=== PATIENT | female | born 1980 | race Caucasian/White ===

== ENCOUNTER 2017-07-17 09:43 | Inpatient (IN) | payer BC, SELFPAY | END 2017-07-20 09:50 | disposition home or self-care (01) | DRG 194 | PROVIDERS: Admitting Provider Internal Medicine Adolescent Medicine; Emergency Provider Emergency Medicine; Family Provider Nurse Practitioner Family; Visit Provider Internal Medicine Adolescent Medicine | DX: J18.9 Pneumonia, unspecified organism (principal); J45.41 Moderate persistent asthma with (acute) exacerbation; E11.9 Type 2 diabetes mellitus without complications; E03.9 Hypothyroidism, unspecified | CPT/HCPCS: 36415; 71010; 71275; 80048; 80053; 82150; 82550; 82553; 82803; 82962; 83036; 83605; 83690; 83880; 84436; 84443; 84479; 84484; 85025; 85378; 86000; 86580; 86638; 87040; 87205; 87486; 87581; 87633; 87798; 93306; 94640; 94760; 96365; 96367; 96375; 99285; J1956; Q9967 ==

== ENCOUNTER → 2017-08-08 13:44 | Outpatient (CLI) | payer BC, SELFPAY | PROVIDERS: Family Provider Nurse Practitioner Family; PCP Internal Medicine Adolescent Medicine; Visit Provider Internal Medicine Adolescent Medicine | DX: R06.2 Wheezing (principal) | CPT/HCPCS: 94060; 94640; 94726; 94729 ==

== ENCOUNTER → 2017-08-15 12:57 | Outpatient (CLI) | payer BC, SELFPAY ==
--- NOTE | 2017-08-15 13:14 | XR_ITS ---
XR chest 2V HISTORY: ITS.REASON: PNEUMONIA ORDERING PHYSICIAN: Bryon Chandra MD PATIENT AGE: 37 years COMPARISON: 07/17/2017 FINDINGS: The cardiomediastinal silhouette and pulmonary vascularity are within normal limits. The lungs are clear without infiltrates, suspicious nodules, or pleural effusions. No acute bony abnormalities. There is minimal upper thoracic curvature convex left IMPRESSION: Negative chest, no acute finding
[2017-08-15 13:30] LABS: Basophils # 0.1 K/mm3 (0-0.2); Basophils % 0.7 % (0.1-2.0); Eosinophils # 0.4 K/mm3 (0.0-0.4); Hematocrit 41.7 % (37.0-47.0); Hemoglobin 13.5 g/dL (12.2-16.2); Lymphocytes # 2.5 K/mm3 (0.7-4.5); Lymphocytes % 28.3 K/mm3 (10-50); Mean Corpuscular HGB Conc 32.4 g/dL (31.8-35.4); Mean Corpuscular Hemoglobin 30.2 pg (27.0-31.2); Mean Corpuscular Volume 93.3 fl (81-99); Mean Platelet Volume 7.3 fl (7.4-10.4); Monocytes # 0.6 K/mm3 (0.1-1.0); Monocytes % 6.8 % (1.7-9.3); Neutrophils # 5.3 K/mm3 (1.8-7.8); Neutrophils % 60.1 % (37.0-80.0); Platelet Count 365 K/mm3 (142-424); Red Blood Count 4.47 M/mm3 (4.20-5.40); Red Cell Distribution Width 12.7 % (11.5-17.5); White Blood Count 8.7 K/mm3 (4.8-10.8)
[2017-08-15 13:43] LABS: Hemoglobin A1C 6.2 % (0.0-7.0)
[2017-08-15 16:32] LABS: Alanine Aminotransferase 28 U/L (12-78); Albumin Level 4.3 gm/dL (3.4-5.0); Albumin/Globulin Ratio 1.5 (1.1-1.8); Alkaline Phosphatase 39 U/L (46-116); Anion Gap 15.3 mEq/L (5-15); Aspartate Amino Transferase 13 U/L (15-37); Bilirubin,Total 0.5 mg/dL (0.2-1.0); Blood Urea Nitrogen 12 mg/dL (7-18); Calcium 9.4 mg/dL (8.5-10.1); Carbon Dioxide 26 mmol/L (21.0-32.0); Chloride 104 mmol/L (98-107); Chol/HDL Ratio 2.6 (1-3.5); Cholesterol 211 mg/dL (140-200); Estimated Glomerular Filt Rate 62 ml/min (>60); GFR (African American) 75 ML/MIN (>60); Globulin 2.9 gm/dl (1.3-3.2); Glucose 96 mg/dL (74-106); HDL Cholesterol 82 mg/dL (29-89); LDL Cholesterol 105 mg/dL (0-130); Potassium 4.3 mmoL/L (3.5-5.1); Sodium 141 mmol/L (136-145); Thyroid Stimulating Hormone 2.23 uIU/ml (0.358-3.740); Total Protein,Serum 7.2 gm/dL (6.4-8.2); Triglycerides 118 mg/dL (30-200); VLDL Cholesterol 24 mg/dL (0-40)
== END ==
PROVIDERS: PCP Internal Medicine Adolescent Medicine; Visit Provider Internal Medicine Adolescent Medicine
DX: J18.1 Lobar pneumonia, unspecified organism (principal); E11.9 Type 2 diabetes mellitus without complications; E03.9 Hypothyroidism, unspecified
CPT/HCPCS: 36415; 71046; 80053; 80061; 83036; 84443; 85025

== ENCOUNTER 2019-08-10 11:21 | Observation (INO) ==
[2019-08-10 13:33] LABS: Albumin Level 3.9 gm/dL (3.4-5.0); Albumin/Globulin Ratio 1.1 (1.1-1.8); Anion Gap 13.7 mEq/L (5-15); Bilirubin,Total 0.6 mg/dL (0.2-1.0); Calcium 8.8 mg/dL (8.5-10.1); Globulin 3.4 gm/dl (1.3-3.2); Total Protein,Serum 7.3 gm/dL (6.4-8.2)
[2019-08-10 13:34] LABS: Basophils # 0.2 K/mm3 (0-0.2); Basophils % 0.9 % (0.1-2.0); Eosinophils # 2.8 K/mm3 (0.0-0.4); Eosinophils % 15.6 % (0.1-12.0); Hematocrit 44.9 % (37.0-47.0); Hemoglobin 14.9 g/dL (12.2-16.2); Lymphocytes # 2.2 K/mm3 (0.7-4.5); Lymphocytes % 12.3 % (10-50); Mean Corpuscular HGB Conc 33.2 g/dL (31.8-35.4); Mean Platelet Volume 7.6 fl (7.4-10.4); Monocytes # 0.9 K/mm3 (0.1-1.0); Monocytes % 5.1 % (1.7-9.3); Neutrophils % 66.1 % (37.0-80.0); Platelet Count 445 K/mm3 (142-424); Red Blood Count 4.83 M/mm3 (4.20-5.40); Red Cell Distribution Width 12.9 % (11.5-17.5); White Blood Count 18.1 K/mm3 (4.8-10.8)
--- NOTE | 2019-08-10 14:19 | History & Physical Report ---
*Admission Date: 08/10/19 *Chief complaint: SOA, wheeze *History of present illness: Asthma exacerbation- patient was seen August 03 for follow up of pneumonia and was started on Doxy and PO steroids. She finished steroids Friday and the Doxy yesterday and reports she had been feeling better until Friday when she began having more difficulty breathing and had to start using her nebulized Albuterol every 3 hours in addition to her regular inhalers. Endorses more wheezing and shortness of breath. Denies fever, productive cough or nasal congestion. [facility] History I have reviewed the patient's past medical history: Yes Medical History: Reports:: Diabetes Mellitus Type 2 Denies:: Cancer, Diabetes Mellitus Type 1, MRSA *Have you ever received a pneumonia vaccine?: No *Have you received a flu vaccine this season?: Yes Other Medical History: Reports: Hypothyroidism Other Surgeries: Yes: Cholecystectomy, , Dilation and Curettage (x2) Amputation: No Fractures: No - *Social History Educational Level: Attended College Smoking Status: Never smoker Alcohol Intake: never *Occupational Status:: other Housing: house Household Members: spouse *Travel in the last 8 weeks: None Family Hx:: No significant family history Review of Systems - Review of Systems Review of systems:: pertinent systems reviewed and negative unless documented below - Constitutional Reports fatigue, Reports fever(s), Reports malaise, Denies anorexia, Denies excessive sweating - Eyes Denies blind spots - ENT Denies abnormal hearing - *Cardiovascular Reports shortness of breath, Reports shortness of breath with activity, Denies chest pain, Denies generalized swelling - *Respiratory Reports chest congestion, Reports cough, Reports shortness of breath, Reports shortness of breath with activity, Denies excessive phlegm production - *Gastrointestinal Denies abdominal pain - *Genitourinary Denies abnormal periods - *Musculoskeletal Denies abnormal walking Meds Home Medications Medication Instructions Recorded Confirmed Type Levothyroxine Sodium [Synthroid 125 mcg PO DAILY 05/01/18 08/10/19 History 125mcg (0.125mg) tablet] Metformin HCl 500 mg PO DAILY 05/01/18 08/10/19 History Albuterol Sulfate [Albuterol HFA 1 puff INHALATION Q2HP PRN 05/12/18 08/10/19 History Inhaler] Doxycycline Hyclate [Doxycycline 100 mg PO BID 08/10/19 08/10/19 History 100mg Capsule] Fluticasone/Vilanterol [Breo 1 inh IH DAILY 08/10/19 08/10/19 History Ellipta 200-25 Mcg INH] Ipratropium/Albuterol Sulfate 3 ml IH QID 08/10/19 08/10/19 History [Duoneb 3mL neb] Allergies Allergy/AdvReac Type Severity Reaction Status Date / Time cefdinir [CEFDINIR] Allergy Intermediate I-HIVES Verified 05/12/18 05:07 Sulfa (Sulfonamide Allergy Intermediate I-RASH Verified 05/12/18 05:07 Antibiotics) [SULFA (SULFONAMIDE ANTIBIOTICS)] Exam Vital signs and Labs for Last 24 Hours: Temp Pulse Resp BP Pulse Ox 99.2 F 113 H 18 132/90 96 08/10/19 12:33 08/10/19 12:33 08/10/19 12:33 08/10/19 12:33 08/10/19 12:33 Laboratory Results - last 24 hr 08/10/19 13:00: WBC 18.1 H, RBC 4.83, Hgb 14.9, Hct 44.9, MCV 93.0, MCH 30.9, MCHC 33.2, RDW 12.9, Plt Count 445 H, MPV 7.6, Neut % (Auto) 66.1, Lymph % (Auto) 12.3, [place] % (Auto) 5.1, Eos % (Auto) 15.6 H, Baso % (Auto) 0.9, Neut # (Auto) 12.0 H, Lymph # (Auto) 2.2, [place] # (Auto) 0.9, Eos # (Auto) 2.8 H, Baso # (Auto) 0.2 08/10/19 13:00: Sodium 138, Potassium 3.7, Chloride 103, Carbon Dioxide 25, Anion Gap 13.7, BUN 15, Creatinine 0.94, Estimated Creat Clear 114, Estimated GFR 66, Est GFR ( Amer) 80, Glucose 88, Calcium 8.8, Magnesium 2.0, Total Bilirubin 0.6, AST 14 L, ALT 23, Alkaline Phosphatase 56, Total Protein 7.3, Albumin 3.9, Globulin 3.4 H, Albumin/Globulin Ratio 1.1 I & O for Last 24 hours: Intake & Output 08/08/19 08/09/19 08/10/19 08/11/19 11:59 11:59 11:59 11:59 Weight 198 lb 2 oz - Constitutional mild distress, average body habitus - *Routine HEENT Exam Head: Present: normocephalic Eye: Present: EOMI, PERRL ENT: Present: mucous membranes moist - *Routine Neck Exam Present: supple. Absent: lymphadenopathy - *Routine Respiratory Exam Present: accessory muscle use, prolonged expiratory phase, wheezes, diminished air movement - *Routine Cardiovascular Exam Present: RRR - *Routine Abdominal Exam Present: soft, normoactive bowel sounds. Absent: tenderness - *Routine Extremities Exam Absent: cyanosis, clubbing, edema - *Routine Skin Exam Present: warm. Absent: rash - *Routine Neurological Exam Present: alert, oriented X3 Assessment and Plan (1) Asthma with exacerbation Current visit: No Status: Acute Category: Medical Code(s): J45.901 - Unspecified asthma with (acute) exacerbation Admit to [facility] - failed two oupt abx and steroid rounds... needs IV steroids, IVF and enhanced pulmonary toilet.
--- NOTE | 2019-08-10 14:52 | Pharmacy Consult Notes ---
[facility] Pharmacy VTE Monitoring - Patient Demographics Admission date: 08/10/19 Report Date: 08/10/19 Time: 14:51 Allergies/Adverse Reactions: Patient Allergies cefdinir [CEFDINIR] Allergy (Intermediate, Verified 05/12/18 05:07) I-HIVES Sulfa (Sulfonamide Antibiotics) [SULFA (SULFONAMIDE ANTIBIOTICS)] Allergy (Intermediate, Verified 05/12/18 05:07) I-RASH Height: 1.78 m Weight: 89.868 kg - VTE Risk Labs: VTE Related Lab Results Hgb 14.9 g/dL (12.2-16.2) 08/10/19 13:00 Hct 44.9 % (37.0-47.0) 08/10/19 13:00 Plt Count 445 K/mm3 (142-424) H 08/10/19 13:00 BUN 15 mg/dL (7-18) 08/10/19 13:00 Creatinine 0.94 mg/dL (0.55-1.02) 08/10/19 13:00 Estimated Creat Clear 114 mL/min (50-200) 08/10/19 13:00 Was VTE Risk Assessment Performed: Yes VTE Score: 2 VTE Risk Level: Low Risk Clinical Trial Participant: No - Prophylaxis VTE Prophylaxis Ordered?: Yes Types of VTE Prophylaxis: TEDS Knee High
[2019-08-10 15:19] LABS: Eosinophils % 10 % (0-3); Lymphocytes % 13 % (10-50); Monocytes % 2 % (2-9); Neutrophils % 75 % (42-76); RBC Morphology Normal; Total Cells Counted 100
--- NOTE | 2019-08-10 15:37 | Consult Report ---
*Admission Date: 08/10/19 *Reason for consult:: asthma *History of present illness: Patient states she has had asthma all her life. However she has poor understanding of her illness. She has never smoked. She states she was admitted August 03 for follow up of pneumonia and was started on Doxy and PO steroids. She finished steroids Friday and the Doxy yesterday and reports she had been feeling better until Friday when she began having more difficulty breathing and had to start using her nebulized Today I saw the patient she is perfectly comfortable. She is not wheezing she is back to baseline. She is receiving a very good regimen for her asthma [facility] History I have reviewed the patient's past medical history: Yes Medical History: Reports:: Diabetes Mellitus Type 2 Denies:: Cancer, Diabetes Mellitus Type 1, MRSA *Have you ever received a pneumonia vaccine?: No *Have you received a flu vaccine this season?: Yes Other Medical History: Reports: Hypothyroidism Other Surgeries: Yes: Cholecystectomy, , Dilation and Curettage (x2) Amputation: No Fractures: No - *Social History Educational Level: Attended College Smoking Status: Never smoker Alcohol Intake: never *Occupational Status:: other Housing: house Household Members: spouse *Travel in the last 8 weeks: None Family Hx:: No significant family history Review of Systems - Review of Systems Review of systems:: pertinent systems reviewed and negative unless documented below - Constitutional Denies anorexia - Eyes Denies blind spots - ENT Denies abnormal hearing - *Cardiovascular Denies chest pain - *Respiratory Reports shortness of breath, Reports wheezing, Denies change in phlegm color - *Gastrointestinal Denies abdominal pain - *Neurologic Denies abnormal walking, Denies abnormal hearing Meds Home Medications Medication Instructions Recorded Confirmed Type Metformin HCl 500 mg PO DAILY 05/01/18 08/10/19 History Albuterol Sulfate [Albuterol HFA 1 puff INHALATION Q2HP PRN 05/12/18 08/10/19 History Inhaler] Doxycycline Hyclate [Doxycycline 100 mg PO BID 08/10/19 08/10/19 History 100mg Capsule] Fluticasone/Vilanterol [Breo 1 inh IH DAILY 08/10/19 08/10/19 History Ellipta 200-25 Mcg INH] Ipratropium/Albuterol Sulfate 3 ml IH QID 08/10/19 08/10/19 History [Duoneb 3mL neb] Levothyroxine Sodium 200 mcg PO DAILY 08/10/19 08/10/19 History [Levothyroxine 200mcg (0.2mg) Tab] Allergies Allergy/AdvReac Type Severity Reaction Status Date / Time cefdinir [CEFDINIR] Allergy Intermediate I-HIVES Verified 05/12/18 05:07 Sulfa (Sulfonamide Allergy Intermediate I-RASH Verified 05/12/18 05:07 Antibiotics) [SULFA (SULFONAMIDE ANTIBIOTICS)] Exam Vital signs and Labs for Last 24 Hours: Temp Pulse Resp BP Pulse Ox 99.2 F 105 H 18 132/90 97 08/10/19 12:33 08/10/19 14:19 08/10/19 12:33 08/10/19 12:33 08/10/19 14:19 Laboratory Results - last 24 hr 08/10/19 13:00: WBC 18.1 H, RBC 4.83, Hgb 14.9, Hct 44.9, MCV 93.0, MCH 30.9, MCHC 33.2, RDW 12.9, Plt Count 445 H, MPV 7.6, Neut % (Auto) 66.1, Lymph % (Auto) 12.3, [place] % (Auto) 5.1, Eos % (Auto) 15.6 H, Baso % (Auto) 0.9, Neut # (Auto) 12.0 H, Lymph # (Auto) 2.2, [place] # (Auto) 0.9, Eos # (Auto) 2.8 H, Baso # (Auto) 0.2, Total Counted 100, Neutrophils % (Manual) 75, Lymphocytes % (Manual) 13, Monocytes % (Manual) 2, Eosinophils % (Manual) 10 H, Platelet Estimate Normal, RBC Morphology Normal 08/10/19 13:00: Sodium 138, Potassium 3.7, Chloride 103, Carbon Dioxide 25, Anion Gap 13.7, BUN 15, Creatinine 0.94, Estimated Creat Clear 114, Estimated GFR 66, Est GFR ( Amer) 80, Glucose 88, Calcium 8.8, Magnesium 2.0, Total Bilirubin 0.6, AST 14 L, ALT 23, Alkaline Phosphatase 56, Total Protein 7.3, Albumin 3.9, Globulin 3.4 H, Albumin/Globulin Ratio 1.1 I & O for Last 24 hours: Intake & Output 08/07/19 08/08/19 08/09/19 08/10/19 23:59 23:59 23:59 23:59 Weight 198 lb 2 oz - *Routine HEENT Exam Head: Present: normocephalic Eye: Present: EOMI, PERRL ENT: Present: mucous membranes moist - *Routine Neck Exam Present: supple. Absent: lymphadenopathy - *Routine Respiratory Exam Present: CTA bilaterally - *Routine Cardiovascular Exam Present: RRR - *Routine Abdominal Exam Present: soft, normoactive bowel sounds. Absent: tenderness - *Routine Extremities Exam Absent: cyanosis, clubbing, edema - *Routine Skin Exam Present: warm. Absent: rash - *Routine Neurological Exam Present: alert, oriented X3 - Detailed Eye Exam Eyelids: Left normal inspection Internal Medicine - CN: Reslt - Labs CBC & Chem 7: 08/10/19 13:00 08/10/19 13:00 Labs: Short CBC 08/10/19 Range/Units 13:00 WBC 18.1 H (4.8-10.8) K/mm3 Hgb 14.9 (12.2-16.2) g/dL Hct 44.9 (37.0-47.0) % Plt Count 445 H (142-424) K/mm3 BMP 08/10/19 13:00 Sodium 138 Potassium 3.7 Chloride 103 Carbon Dioxide 25 BUN 15 Creatinine 0.94 Glucose 88 Calcium 8.8 Liver Function 08/10/19 Range/Units 13:00 Total Bilirubin 0.6 (0.2-1.0) mg/dL AST 14 L (15-37) U/L ALT 23 (12-78) U/L Alkaline Phosphatase 56 (46-116) U/L Albumin 3.9 (3.4-5.0) gm/dL - ABG Interpretation Attestation ABG: I reviewed and interpreted this ABG. Assessment and Plan (1) Asthma with exacerbation Current visit: No Status: Acute Category: Medical Code(s): J45.901 - Unspecified asthma with (acute) exacerbation Patient is doing very well right now and is perfectly comfortable. She is at her baseline. There is no wheezing. However she describes more than a month of being short of breath and having several episodes of steroid use. She will need to be closely observed by her PCP after discharge. Because she is not having symptoms right now I am not able to observe her disease process. By her description I am a little concerned that she might have a vocal cord problem and that this comes and goes and persists. She should have outpatient PFTs and close observation. Thank you for the opportunity to see this patient in consultation
--- NOTE | 2019-08-10 20:56 | Electrocardiograph Report ---
APPROVED REPORT Exam: Resting ECG HR:90 bpm ECG Measurements Heart Rate 90 AXES MO 130 P 74 QRSd 96 QRS 84 QT 378 T38 QTc 462 <Conclusion> Normal sinus rhythm Normal ECG Electronically signed by : Bryon Chandra, 08/10/2019 20:56:11
--- NOTE | 2019-08-11 09:01 | Discharge Summary ---
General - General Admission date:: 08/10/19 Discharge date: 08/11/19 HPI HPI: Asthma exacerbation- patient was seen August 03 for follow up of pneumonia and was started on Doxy and PO steroids. She finished steroids Friday and the Doxy yesterday and reports she had been feeling better until Friday when she began having more difficulty breathing and had to start using her nebulized Albuterol every 3 hours in addition to her regular inhalers. Endorses more wheezing and shortness of breath. Denies fever, productive cough or nasal congestion. Hospital Course Hospital Course: Patient was admitted, placed on methylprednisolone and nebulized treatment as well as fluid and intravenous magnesium. She did very nicely and responded very nicely to this inpatient management. This morning she is improving. No longer tachypneic. Exam has improved extremely well. She will be discharged home on longer term steroids, nebulizer treatments and magnesium. Objective Vital signs: Temp Pulse Resp BP Pulse Ox 97.8 F 90 16 111/73 92 L 08/11/19 04:00 08/11/19 06:14 08/11/19 04:00 08/11/19 04:00 08/11/19 06:14 Narrative: Awake, alert, pleasant. No respiratory distress. Oropharynx clear, no JVD. Tachypnea resolved. Lung exam is much improved with less wheezing. No breath stacking, normal I/T ratio. No clubbing, no edema. Heart rate regular. Results Labs on day of discharge: Labs from last 24 hours 08/10/19 08/10/19 13:00 13:00 WBC 18.1 H RBC 4.83 Hgb 14.9 Hct 44.9 MCV 93.0 MCH 30.9 MCHC 33.2 RDW 12.9 Plt Count 445 H MPV 7.6 Neut % (Auto) 66.1 Lymph % (Auto) 12.3 [place] % (Auto) 5.1 Eos % (Auto) 15.6 H Baso % (Auto) 0.9 Neut # (Auto) 12.0 H Lymph # (Auto) 2.2 [place] # (Auto) 0.9 Eos # (Auto) 2.8 H Baso # (Auto) 0.2 Total Counted 100 Neutrophils % (Manual) 75 Lymphocytes % (Manual) 13 Monocytes % (Manual) 2 Eosinophils % (Manual) 10 H Platelet Estimate Normal RBC Morphology Normal Sodium 138 Potassium 3.7 Chloride 103 Carbon Dioxide 25 Anion Gap 13.7 BUN 15 Creatinine 0.94 Estimated Creat Clear 114 Estimated GFR 66 Est GFR ( Amer) 80 Glucose 88 Calcium 8.8 Magnesium 2.0 Total Bilirubin 0.6 AST 14 L ALT 23 Alkaline Phosphatase 56 Total Protein 7.3 Albumin 3.9 Globulin 3.4 H Albumin/Globulin Ratio 1.1 DS: Diagnosis - Discharge Diagnosis (1) Asthma with exacerbation Status: Acute Discharge Plan - Patient Discharge Instructions ACTIVITY: Continue current activity DIET: continue same diet Patient Instructions: Asthma -- Adult, DI for Asthma -- Adult - Follow up Plan Follow up with: Bryon Chandra MD [Primary Care Provider] - 08/17/19 Disposition: Home, [facility] Medications: Home Medications Medication Instructions Recorded Confirmed Type Metformin HCl 500 mg PO DAILY 05/01/18 08/10/19 History Albuterol Sulfate [Albuterol HFA 1 puff INHALATION Q2HP PRN 05/12/18 08/10/19 History Inhaler] Doxycycline Hyclate [Doxycycline 100 mg PO BID 08/10/19 08/10/19 History 100mg Capsule] Fluticasone/Vilanterol [Breo 1 inh IH DAILY 08/10/19 08/10/19 History Ellipta 200-25 Mcg INH] Ipratropium/Albuterol Sulfate 3 ml IH QID 08/10/19 08/10/19 History [Duoneb 3mL neb] Levothyroxine Sodium 200 mcg PO DAILY 08/10/19 08/10/19 History [Levothyroxine 200mcg (0.2mg) Tab] Magnesium Oxide 400 mg PO BID #60 tab 08/11/19 Rx predniSONE [Deltasone 20mg 20 mg PO BID 7 Days #14 tab 08/11/19 Rx tablet] Prescriptions/Medication Reconciliation: New Magnesium Oxide 400 mg PO BID #60 tab predniSONE [Deltasone 20mg tablet] 20 mg PO BID 7 Days #14 tab Continued Metformin HCl 500 mg PO DAILY Albuterol Sulfate [Albuterol HFA Inhaler] 1 puff INHALATION Q2HP PRN PRN Reason: shortness of air Fluticasone/Vilanterol [Breo Ellipta 200-25 Mcg INH] 1 inh IH DAILY Levothyroxine Sodium [Levothyroxine 200mcg (0.2mg) Tab] 200 mcg PO DAILY Ipratropium/Albuterol Sulfate [Duoneb 3mL neb] 3 ml IH QID Discontinued Doxycycline Hyclate [Doxycycline 100mg Capsule] 100 mg PO BID - Problem Reconciliation Problems Reviewed?: Yes
== END 2019-08-11 10:20 | disposition home or self-care (01) ==
LOC: 2ND
PROVIDERS: ADMIT Internal Medicine Adolescent Medicine; ATTEND Internal Medicine Adolescent Medicine
DX: Z88.1 Allergy status to other antibiotic agents; E11.9 Type 2 diabetes mellitus without complications; Z79.84 Long term (current) use of oral hypoglycemic drugs; E03.9 Hypothyroidism, unspecified; Z90.49 Acquired absence of other specified parts of digestive tract; Z79.899 Other long term (current) drug therapy; J45.901 Unspecified asthma with (acute) exacerbation; Z88.2 Allergy status to sulfonamides
CPT/HCPCS: 71020; 71046; 80053; 83735; 85007; 85025; 93005; 94640; 94761; G0378

== ENCOUNTER 2019-09-07 03:52 | Observation (INO) ==
[2019-09-07 04:17] LABS: ABG Base Excess -4.3 mmol/L (-2.4-2.3); ABG Oxygen Saturation 92 % (90-100); ABG PCO2 37.2 mmhg (35.0-45.0); ABG PH 7.37 mmol/L (7.35-7.45); ABG PO2 65.2 mmhg (80-100); ABG TCO2 22.2 mmhg (23-27)
[2019-09-07 04:18] LABS: Basophils # 0.1 K/mm3 (0-0.2); Basophils % 0.6 % (0.1-2.0); Eosinophils # 0.5 K/mm3 (0.0-0.4); Eosinophils % 3.8 % (0.1-12.0); Hematocrit 42.1 % (37.0-47.0); Hemoglobin 14.1 g/dL (12.2-16.2); Lymphocytes # 1.3 K/mm3 (0.7-4.5); Lymphocytes % 10.6 % (10-50); Mean Corpuscular HGB Conc 33.4 g/dL (31.8-35.4); Mean Corpuscular Volume 93.7 fl (81-99); Mean Platelet Volume 8.1 fl (7.4-10.4); Monocytes # 0.9 K/mm3 (0.1-1.0); Monocytes % 7.4 % (1.7-9.3); Neutrophils # 9.7 K/mm3 (1.8-7.8); Neutrophils % 77.7 % (37.0-80.0); Platelet Count 401 K/mm3 (142-424); Red Blood Count 4.49 M/mm3 (4.20-5.40); White Blood Count 12.5 K/mm3 (4.8-10.8)
[2019-09-07 04:18] LABS: Allen's Test ACCEPTABLE; Oxygen 21 %
[2019-09-07 04:30] LABS: Albumin/Globulin Ratio 1.2 (1.1-1.8); Anion Gap 14.1 mEq/L (5-15); Bilirubin,Total 0.3 mg/dL (0.2-1.0); Calcium 9.1 mg/dL (8.5-10.1); Globulin 3.3 gm/dl (1.3-3.2); Total Protein,Serum 7.3 gm/dL (6.4-8.2)
--- NOTE | 2019-09-07 04:45 | Emergency Department Note ---
ED Disposition Clinical Impression: Asthma with exacerbation Qualifiers: Asthma severity: severe Asthma persistence: unspecified Qualified Code(s): J45.901 - Unspecified asthma with (acute) exacerbation Disposition: Admitted as Observation Condition on Discharge: Serious Referrals: Bryon Chandra MD [Primary Care Provider] - - Critical Care Critical Care Time: No Attestation: On 09/07/19, the high probability of a clinically significant, sudden or life threatening deterioration of the following system(s) required my full and direct attention, intervention and personal management. The time I documented below is in addition to time spent performing reported procedures but includes the following listed in this critical care notation. Medical Decision Making - Medical Records Medical records reviewed: Yes: I reviewed the patient's medical records. - [place] Inquiry Pt receiving controlled substance: No Vital Signs: 09/07/19 03:53 Temperature 97.8 F Temperature Source Oral Pulse Rate [Left Radial] 131 H Respiratory Rate 22 Blood Pressure [Right Arm] 123/78 Blood Pressure Mean [Right Arm] 93 Blood Pressure Source [Right Arm] Automatic Cuff Blood Pressure Position [Right Arm] Sitting 02 Sat by Pulse Oximetry 97 Oxygen Delivery Method Room Air - Lab Data Lab results reviewed: Yes: I reviewed the patient's lab results. Lab Results 09/07/19 04:07: Specimen Source Right radial, O2 % 21, ABG pH 7.37, ABG pCO2 37.2, ABG pO2 65.2 L, ABG HCO3 21.0 L, ABG Total CO2 22.2 L, ABG O2 Saturation 92, ABG Base Excess -4.3 L, Darryl Test Acceptable 09/07/19 04:10: WBC 12.5 H, RBC 4.49, Hgb 14.1, Hct 42.1, MCV 93.7, MCH 31.3 H, MCHC 33.4, RDW 13.0, Plt Count 401, MPV 8.1, Neut % (Auto) 77.7, Lymph % (Auto) 10.6, [place] % (Auto) 7.4, Eos % (Auto) 3.8, Baso % (Auto) 0.6, Neut # (Auto) 9.7 H, Lymph # (Auto) 1.3, [place] # (Auto) 0.9, Eos # (Auto) 0.5 H, Baso # (Auto) 0.1 Result diagrams: 09/07/19 04:10 Orders (Tests/Meds): ED MEDICATIONS Generic Name Dose Route Start Last Admin Trade Name Freq PRN Reason Stop Dose Admin Sodium Chloride 1,000 mls @ 999 mls/hr 09/07/19 04:15 09/07/19 04:15 Sod Chlor 0.9% 1000ml Bag IV 09/07/19 05:15 999 mls/hr .Q1H1M QUITA Administration Discontinued Medications Generic Name Dose Route Start Last Admin Trade Name Freq PRN Reason Stop Dose Admin Levalbuterol HCl 1.25 mg 09/07/19 04:09 09/07/19 04:14 Xopenex 1.25mg/3ml Neb IH 09/07/19 04:10 1.25 mg ONCE ONE Administration Methylprednisolone Sodium Succinate 125 mg 09/07/19 04:08 09/07/19 04:14 Solu-Medrol 125mg/2ml Vial IV 09/07/19 04:09 125 mg ONCE ONE Administration ORDERS Category Date Time Status XR chest portable Stat Exams 09/07/19 04:08 Taken Comprehensive Metabolic Panel Stat Lab 09/07/19 04:10 Received Troponin I Q3H Lab 09/07/19 07:15 Ordered Troponin I Q3H Lab 09/07/19 10:15 Ordered Troponin I Stat Lab 09/07/19 04:10 Received - Radiology Data #1 Image(s): Chest Image Reviewed: Yes I reviewed the patient's radiology image Preliminary Findings: Abnormal (inc marking rt base ) - ECG Data Tracing #1 Arrhythmias present: sinus tach Ischemic changes: non-specific ST-T wave changes - Physician Consults Physician Consulted: steve Reason -: Admission Asthma HPI - General Chief Complaint: Shortness of Breath/Dyspnea Stated Complaint: Difficulty breathing Time Seen by Provider: 09/07/19 04:15 Mode of Arrival - ED Triage: Ambulatory ED Triage Source of Information: Patient, Medical Record ED Triage Limitations: No Limitations Description of Symptoms (Recalled from ER Triage Doc. by RN): pt had pneumonia a month ago and has asthma. pt began to get SOB yesterday that increasingly got worse over night. pt has been taking her DUO neb treatments about every 2hrs though the night with no relief - History of Present Illness HPI Narrative: hx of asthma and has used nebs and inhaler at [facility] with saray murillo MD complaint: "asthma attack", shortness of breath Onset (ago): hour(s) Severity: worse than usual Context: pet exposure Associated symptoms: dry cough Asthma History: adult onset Treatments Prior to Arrival: inhaled bronchodilator, inhaled steroid - Related Data Current Asthma Therapy: inhaled bronchodilator, inhaled steroid Home Medications Medication Instructions Recorded Confirmed Metformin HCl 500 mg PO DAILY 05/01/18 08/10/19 Ipratropium/Albuterol Sulfate 3 ml IH QID 08/10/19 08/10/19 [Duoneb 3mL neb] Levothyroxine Sodium 200 mcg PO DAILY 08/10/19 08/10/19 [Levothyroxine 200mcg (0.2mg) Tab] Allergies Allergy/AdvReac Type Severity Reaction Status Date / Time cefdinir [CEFDINIR] Allergy Intermediate I-HIVES Verified 05/12/18 05:07 Sulfa (Sulfonamide Allergy Intermediate I-RASH Verified 05/12/18 05:07 Antibiotics) [SULFA (SULFONAMIDE ANTIBIOTICS)] [facility] History - Hepatitis A Screen Drug use history?: No High risk sexual behaviors?: No History of sexually transmitted infection?: No Currently employed?: No Childcare worker?: No Do you have indoor plumbing?: Yes Do you have electricity?: Yes Attestation statement:: This patient has been screened for Hepatitis A risk factors. I have reviewed the patient's past medical history: Yes Medical History: Reports:: Diabetes Mellitus Type 2 Denies:: Cancer, Diabetes Mellitus Type 1, MRSA Other Medical History: Reports: Hypothyroidism Other Surgeries: Yes: Cholecystectomy, , Dilation and Curettage (x2) Amputation: No Fractures: No - Social History Smoking Status: Never smoker Alcohol Intake: never Occupational Status: employed Housing: house Household Members: spouse Family Hx:: No significant family history ROS Obtained: Yes All systems reviewed & no additional complaints - Constitutional Constitutional: Denies fever(s) - Eyes Eyes: Denies change in vision - ENT Ears, Nose, Mouth, and Throat: Denies sore throat - Cardiovascular Cardiovascular: Reports as per HPI, Denies chest pain, Reports dyspnea - Respiratory Respiratory: Yes as per HPI, Yes cough, Yes non-productive cough - Gastrointestinal Gastrointestingal: Denies: abdominal pain - Genitourinary Female Genitourinary: Denies hematuria - Musculoskeletal Musculoskeletal: Denies joint pain, Denies joint swelling - Integumentary/Breasts Skin/Breast: Denies rash - Neurologic Neurologic: Denies focal weakness, Denies seizure-like activity Physical Exam - General General appearance: alert, in no apparent distress - Head Head exam: normocephalic - Eye Eye exam: Present: PERRL, EOMI. Absent: scleral icterus - ENT ENT exam: Present: mucous membranes dry - Neck Neck exam: Present: trachea midline - Respiratory Respiratory exam: Present: wheezes. Absent: respiratory distress - Cardiovascular Cardiovascular exam: Present: regular rate. Absent: systolic murmur, rubs, gallop - Abdominal Exam Abdominal exam: Present: soft - Extremities Exam Extremities exam: Present: full ROM - Neurological Exam Neurological exam: Present: alert, CN II-XII intact - Psychiatric Psychiatric exam: Present: normal affect - Skin Skin exam: Absent: rash
--- NOTE | 2019-09-07 07:28 | Pharmacy Consult Notes ---
[facility] Pharmacy VTE Monitoring - Patient Demographics Admission date: 09/07/19 Report Date: 09/07/19 Time: 07:27 Allergies/Adverse Reactions: Patient Allergies cefdinir [CEFDINIR] Allergy (Intermediate, Verified 05/12/18 05:07) I-HIVES Sulfa (Sulfonamide Antibiotics) [SULFA (SULFONAMIDE ANTIBIOTICS)] Allergy (Intermediate, Verified 05/12/18 05:07) I-RASH Height: 1.78 m Weight: 90.889 kg Patient Problems: Current Active Problems Asthma with exacerbation (Acute) - VTE Risk Labs: VTE Related Lab Results Hgb 14.1 g/dL (12.2-16.2) 09/07/19 04:10 Hct 42.1 % (37.0-47.0) 09/07/19 04:10 Plt Count 401 K/mm3 (142-424) 09/07/19 04:10 BUN 11 mg/dL (7-18) 09/07/19 04:10 Creatinine 1.04 mg/dL (0.55-1.02) H 09/07/19 04:10 Estimated Creat Clear 104 mL/min (50-200) 09/07/19 04:10 - Prophylaxis VTE Prophylaxis Ordered?: Yes Types of VTE Prophylaxis: TEDS Knee High Location of Applied Device: Bilateral Lower Extremeties
--- NOTE | 2019-09-07 08:10 | History & Physical Report ---
*Admission Date: 09/07/19 *Chief complaint: Wheezing/shortness of air *History of present illness: 39-year-old white female very familiar to me with significant asthma who has significant exacerbations and has been hospitalized twice over the past year, has never been intubated or had to be on BiPAP. I saw her in the office last week and she was doing well. I actually changed her therapy from Breo inhaler to Trelegy inhaler to see if the inhaled LAMA would help her avoid p.o. steroids and she initially did well, but over the past 24 hours has become increasingly short of air, afflicted with wheezing, difficulty breathing and difficulty with significant expiration. Came to the emergency department, significant wheezing, tightness, minimal hypoxia noted and she was admitted to the hospital. [facility] History I have reviewed the patient's past medical history: Yes Medical History: Reports:: Diabetes Mellitus Type 2 Denies:: Cancer, Diabetes Mellitus Type 1, MRSA *Have you ever received a pneumonia vaccine?: No *Have you received a flu vaccine this season?: Yes Other Medical History: Reports: Hypothyroidism Other Surgeries: Yes: Cholecystectomy, , Dilation and Curettage (x2) Amputation: No Fractures: No - *Social History Educational Level: Attended College Smoking Status: Never smoker Alcohol Intake: never *Occupational Status:: employed Housing: house Household Members: spouse *Travel in the last 8 weeks: None Family Hx:: Cancer, Coronary Artery Disease, Diabetes, Hyperlipidemia, Hypertension, Stroke, Thyroid Disorder Review of Systems - Review of Systems Review of systems:: pertinent systems reviewed and negative unless documented below - Constitutional Denies anorexia - Eyes Denies blind spots, Denies blurry vision - ENT Denies abnormal hearing - *Cardiovascular Reports shortness of breath, Reports shortness of breath with activity, Denies chest pain, Denies chest pain at rest - *Respiratory Reports shortness of breath with activity, Denies change in phlegm color, Denies excessive phlegm production - *Gastrointestinal Denies abdominal pain - *Musculoskeletal Denies abnormal walking, Denies joint swelling - Integumentary/Breasts Denies acne - *Neurologic Denies localized weakness, Denies seizure-like activity Meds Home Medications Medication Instructions Recorded Confirmed Type Metformin HCl 500 mg PO DAILY 05/01/18 09/07/19 History Ipratropium/Albuterol Sulfate 3 ml IH QID 08/10/19 09/07/19 History [Duoneb 3mL neb] Levothyroxine Sodium 200 mcg PO DAILY 08/10/19 09/07/19 History [Levothyroxine 200mcg (0.2mg) Tab] Fluticasone/Umeclidin/Vilanter 1 puff INHALATION DAILY 09/07/19 09/07/19 History [Trelegy Ellipta 100-62.5-25] Allergies Allergy/AdvReac Type Severity Reaction Status Date / Time cefdinir [CEFDINIR] Allergy Intermediate I-HIVES Verified 05/12/18 05:07 Sulfa (Sulfonamide Allergy Intermediate I-RASH Verified 05/12/18 05:07 Antibiotics) [SULFA (SULFONAMIDE ANTIBIOTICS)] Exam Vital signs and Labs for Last 24 Hours: Temp Pulse Resp BP Pulse Ox 98.2 F 112 H 20 144/78 H 92 L 09/07/19 05:46 09/07/19 06:14 09/07/19 05:46 09/07/19 05:46 09/07/19 06:14 Laboratory Results - last 24 hr 09/07/19 04:07: Specimen Source Right radial, O2 % 21, ABG pH 7.37, ABG pCO2 37.2, ABG pO2 65.2 L, ABG HCO3 21.0 L, ABG Total CO2 22.2 L, ABG O2 Saturation 92, ABG Base Excess -4.3 L, Darryl Test Acceptable 09/07/19 04:10: Troponin I < 0.02 09/07/19 04:10: Sodium 142, Potassium 4.1, Chloride 105, Carbon Dioxide 27, Anion Gap 14.1, BUN 11, Creatinine 1.04 H, Estimated Creat Clear 104, Estimated GFR 59, Est GFR ( Amer) 71, Glucose 135 H, Calcium 9.1, Total Bilirubin 0.3, AST 13 L, ALT 21, Alkaline Phosphatase 50, Total Protein 7.3, Albumin 4.0, Globulin 3.3 H, Albumin/Globulin Ratio 1.2 09/07/19 04:10: WBC 12.5 H, RBC 4.49, Hgb 14.1, Hct 42.1, MCV 93.7, MCH 31.3 H, MCHC 33.4, RDW 13.0, Plt Count 401, MPV 8.1, Neut % (Auto) 77.7, Lymph % (Auto) 10.6, [place] % (Auto) 7.4, Eos % (Auto) 3.8, Baso % (Auto) 0.6, Neut # (Auto) 9.7 H, Lymph # (Auto) 1.3, [place] # (Auto) 0.9, Eos # (Auto) 0.5 H, Baso # (Auto) 0.1 09/07/19 04:10: Magnesium 1.7 I & O for Last 24 hours: Intake & Output 09/04/19 09/05/19 09/06/19 09/07/19 11:59 11:59 11:59 11:59 Intake Total 1250 / 1250 Balance 1250 / 1250 Weight 200 lb 6 oz Narrative: Patient is pleasant, appears moderately ill. No use of accessory muscles or retractions. ENT exam clear, oropharynx clear, no JVD. Respiratory effort is intact, lungs have significant wheezing, some tightness on end expiration. No clubbing, no cyanosis, no edema. Abdomen soft and nontender. Neurologically intact. Assessment and Plan (1) Asthma with exacerbation Current visit: Yes Status: Acute Qualifiers: Asthma severity: severe Asthma persistence: unspecified Qualified Code(s): J45.901 - Unspecified asthma with (acute) exacerbation Category: Medical Code(s): J45.901 - Unspecified asthma with (acute) exacerbation Agree with admission. Add IV magnesium. Add Singulair. Continue IV steroids.
--- NOTE | 2019-09-07 08:33 | Electrocardiograph Report ---
APPROVED REPORT Exam: Resting ECG HR:117 bpm ECG Measurements Heart Rate 117 AXES SC 136 P 84 QRSd 76 QRS 86 QT 310 T47 QTc 432 <Conclusion> Sinus tachycardia Incomplete RBBB Non-Specific ST Changes Otherwise a normal ECG Electronically signed by : Adrian Matthews, 09/07/2019 08:32:25
--- NOTE | 2019-09-08 09:01 | Progress Note ---
Internal Medicine - PN: Subj *Date: 09/08/19 *Time: 09:00 Interval history: Patient feels a little better. Continues to cough up some purulent sputum. Exam Vital signs and Labs for Last 24 Hours: Temp Pulse Resp BP Pulse Ox 98.2 F 111 H 18 109/58 L 96 09/08/19 08:00 09/08/19 08:00 09/08/19 08:00 09/08/19 08:00 09/08/19 08:00 I & O for Last 24 hours: Intake & Output 09/05/19 09/06/19 09/07/19 09/08/19 11:59 11:59 11:59 11:59 Intake Total 1730 / 1730 2143 / 2143 Balance 1730 / 1730 2143 / 2143 Weight 200 lb 6 oz 201 lb 4 oz Narrative: Patient is pleasant, alert, moving air better than yesterday. Minimal rhonchi. Vital signs normalized. Heart rate regular, abdomen soft, no edema. Assessment and Plan (1) Asthma with exacerbation Current visit: Yes Status: Acute Qualifiers: Asthma severity: severe Asthma persistence: unspecified Qualified Code(s): J45.901 - Unspecified asthma with (acute) exacerbation Category: Medical Code(s): J45.901 - Unspecified asthma with (acute) exacerbation - Assessment and plan all Dx Assessment and Plan for all problems:: Sputum culture ordered. If patient feels better later this evening would consider discharge. She has nicely improved.
--- NOTE | 2019-09-08 14:19 | Discharge Summary ---
General - General Admission date:: 09/07/19 Discharge date: 09/08/19 HPI HPI: 39-year-old white female very familiar to me with significant asthma who has significant exacerbations and has been hospitalized twice over the past year, has never been intubated or had to be on BiPAP. I saw her in the office last week and she was doing well. I actually changed her therapy from Breo inhaler to Trelegy inhaler to see if the inhaled LAMA would help her avoid p.o. steroids and she initially did well, but over the past 24 hours has become increasingly short of air, afflicted with wheezing, difficulty breathing and difficulty with significant expiration. Came to the emergency department, significant wheezing, tightness, minimal hypoxia noted and she was admitted to the hospital. Hospital Course Hospital Course: Patient was admitted, pulmonary toilet was given, she was able to cough up a sputum sample that had gram-positive cocci in pairs, culture pending at this point. She improved very nicely and had no wheezing with acceptable room air saturations this afternoon. She will be discharged home with steroids, antibiotics, short-term follow-up in my office. Objective Vital signs: Temp Pulse Resp BP Pulse Ox 98.2 F 84 18 109/58 L 94 L 09/08/19 08:00 09/08/19 11:31 09/08/19 08:00 09/08/19 08:00 09/08/19 11:31 Narrative: Pleasant, talkative, lungs clear, minimal expiratory rhonchi, good air movement. Abdomen soft, no clubbing, cyanosis, edema. Neurologically intact. Oropharynx clear, heart rate regular. DS: Diagnosis - Discharge Diagnosis (1) Asthma with exacerbation Status: Acute Discharge Plan - Patient Discharge Instructions ACTIVITY: Continue current activity DIET: continue same diet Patient Instructions: Asthma -- Adult, DI for Asthma -- Adult - Follow up Plan Follow up with: Bryon Chandra MD [Primary Care Provider] - 09/10/19 10:00 am Disposition: Home, Self-Detention Medications: Home Medications Medication Instructions Recorded Confirmed Type Metformin HCl 500 mg PO DAILY 05/01/18 09/07/19 History Ipratropium/Albuterol Sulfate 3 ml IH QID 08/10/19 09/07/19 History [Duoneb 3mL neb] Levothyroxine Sodium 200 mcg PO DAILY 08/10/19 09/07/19 History [Levothyroxine 200mcg (0.2mg) Tab] Fluticasone/Umeclidin/Vilanter 1 puff INHALATION DAILY 09/07/19 09/07/19 History [Trelegy Ellipta 100-62.5-25] levoFLOXacin [Levaquin 500mg 500 mg PO DAILY #7 tab 09/08/19 Rx tab] predniSONE [Deltasone 20mg 20 mg PO BID 7 Days #14 tab 09/08/19 Rx tablet] Prescriptions/Medication Reconciliation: New predniSONE [Deltasone 20mg tablet] 20 mg PO BID 7 Days #14 tab levoFLOXacin [Levaquin 500mg tab] 500 mg PO DAILY #7 tab Continued Metformin HCl 500 mg PO DAILY Levothyroxine Sodium [Levothyroxine 200mcg (0.2mg) Tab] 200 mcg PO DAILY Ipratropium/Albuterol Sulfate [Duoneb 3mL neb] 3 ml IH QID Fluticasone/Umeclidin/Vilanter [Trelegy Ellipta 100-62.5-25] 1 puff INHALATION DAILY - Problem Reconciliation Problems Reviewed?: Yes
== END 2019-09-08 15:10 | disposition home or self-care (01) ==
LOC: ER 03:52 → 2ND 03:52
PROVIDERS: ADMIT Internal Medicine Adolescent Medicine; ATTEND Internal Medicine Adolescent Medicine
CPT/HCPCS: 71010; 71045; 80053; 82803; 83735; 84484; 85025; 87070; 87205; 93005; 94640; 94761; 96365; 96367; 96375; 99284; G0378; J0456

== ENCOUNTER → 2020-01-18 13:13 | Outpatient (CLI) | payer BC, SELFPAY ==
--- NOTE | 2020-01-18 13:18 | XR_ITS ---
PROCEDURE: XR ANKLE LT MIN 3V CLINICAL INDICATION: LEFT ANKLE PAIN COMPARISON: No exams were available for comparison FINDINGS: No fracture, dislocation, lytic change, or blastic change evident. No significant degenerative change IMPRESSION: No acute findings. Dictated by: Darryl Prieto MD 01/18/2020 14:04 Electronically signed by Darryl Prieto MD in [place] 01/18/2020 14:04
== END ==
PROVIDERS: PCP Internal Medicine Adolescent Medicine; Visit Provider Internal Medicine Adolescent Medicine
DX: M25.572 Pain in left ankle and joints of left foot (principal)
CPT/HCPCS: 73610

== ENCOUNTER 2020-03-09 16:00 | Outpatient (RCR) | payer BC, SELFPAY ==
--- NOTE | 2020-02-04 09:07 | HMH.PTOPEV ---
Addendum entered and electronically signed by Bryon Chandra MD 02/05/20 08:28: Note: patient is a 39 year old female. Original Note: PT Outpatient Evaluation Rehab PT Outpatient Evaluation Start: 02/04/20 08:11 Freq: Status: Active Protocol: Document 02/04/20 08:37 LIZ (Rec: 02/04/20 08:43 LIZ [id number]) Electronically Signed By Chemo Dukes, PT 02/04/20 08:37 Outpatient Therapy Subjective History Subjective History Patient is a 39 year old male presenting to outpatient PT with reports of chronic L foot /ankle pain starting approximately 10 years ago that has progressively gotten worse over the past 20 months. She reports that she had an accident in a child in which she cut some tendons in the arch of her foot. Visible scar consistent with posterior tibials distal insertion area . Palpable tenderness to mid- substance post-tib. Comorbidities include hx of asthma, diabetes and hypothyroidism. Chief Complaint Pain,Stiff Symptom Type Shooting Symptoms Relieved By Rest/Positioning,Prescription Meds Symptoms Aggravated By Physical Activity,Walking Prior Functional Limitations None Current Functional Limitations Standing,Recreation Activity, Walking,Stairs,Balance Symptom Description Intermittent Level of pain today (0-10) 0 Pain scale - at its best (0-10) 0 Pain scale - at its worst (0-10) 7 Ankle/Foot Eval Palpation Tenderness left Ankle/Foot Palpation Findings Tenderness Ankle/Foot Palpation Overall Comment distal posterior tib/mid sub posterior tib 3/4 ROM Ankle/Foot Dorsiflexion W/Knee Flexed -1 Passive Range Motion (degrees) Ankle/Foot Plantar Flexion Active Range WNL of Motion (degrees) Ankle/Foot Eversion Active Range of 19 Motion (degrees) Ankle/Foot Inversion Active Range of 25 Motion (degrees) Ankle/Foot ROM Limitations Soft Tissue Tightness Great Toe ROM Reason Not Measured Within Functional Limits MMT Ankle Dorsiflexion Strength Grade 4 Good Ankle Plantarflexion Strength Grade 4 Good Foot Eversion Strength Grade 4- Good- Foot Inversion Strength Grade 4- Good- Special Tests Ankle Anterior Drawer Test Negative Left Ankle Eversion Test N
== END 2020-03-09 16:05 | disposition home or self-care (01) ==
LOC: PT 16:00
PROVIDERS: PCP Internal Medicine Adolescent Medicine; Visit Provider Internal Medicine Adolescent Medicine
DX: M25.572 Pain in left ankle and joints of left foot (principal)
CPT/HCPCS: 97010; 97014; 97033; 97035; 97110; 97140; 97163; G0283

== ENCOUNTER → 2020-04-06 12:44 | Outpatient (CLI) | payer BC, SELFPAY ==
--- NOTE | 2020-04-06 | MR_ITS ---
PROCEDURE: MR FOOT LT WO CON CLINICAL INDICATION: LEFT FOOT PAIN medial and anterior foor pain. symptoms xyrs. but worse [id number]. prior x-ray 01-03-20 COMPARISON: CR XR ANKLE LT MIN 3V from 01/18/2020 TECHNIQUE: Routine multiplanar multi echo sequences are performed without gadolinium enhancement. FINDINGS: There is a small amount of fluid at the ankle joint between the distal tibia and fibula. The tibiofibular ligaments and talofibular ligaments appear intact as does the deltoid ligament. The talar dome has an unremarkable appearance. The ankle mortise is preserved. There is diffuse decreased T1 and increased T2 signal involving the mid cuneiform. This is slightly heterogeneous in nature. The Achilles tendon, posterior tibialis, flexor digitorum longus, flexor hallucis longus, peroneal tendons, and the anterior extensor tendons have an unremarkable appearance. Plantar fascia appears intact. IMPRESSION: 1. Abnormal signal intensity of the mid cuneiform suggesting underlying bone marrow edema. This is nonspecific and could be inflammatory/infectious, or posttraumatic/secondary to bone bruise. There is some minimal cortical regularity of the proximal surface of the mid cuneiform. Please correlate with clinical parameters. 2. Small ankle joint effusion. Dictated by: Darryl Prieto MD 04/11/2020 09:25 Darryl Prieto MD in [place] 04/11/2020 09:25
== END ==
PROVIDERS: PCP Internal Medicine Adolescent Medicine; Visit Provider Internal Medicine Adolescent Medicine
DX: M79.672 Pain in left foot (principal)
CPT/HCPCS: 73718

== ENCOUNTER → 2020-05-01 10:15 | Outpatient (CLI) | payer BC, SELFPAY ==
--- NOTE | 2020-05-01 10:19 | XR_ITS ---
PROCEDURE: XR ANKLE WT BEARING LT MIN 3V CLINICAL INDICATION: eval for L med cuneiform stress fracture. Pain COMPARISON: No exams were available for comparison FINDINGS: IMPRESSION: No acute findings. Dictated by: Darryl Prieto MD 05/01/2020 17:02 Darryl Prieto MD in [place] 05/01/2020 17:02
--- NOTE | 2020-05-01 10:19 | XR_ITS ---
PROCEDURE: XR FOOT WT BEARING LT 3V CLINICAL INDICATION: eval for L medial cuneiform stress fracture. COMPARISON: MR MR FOOT LT WO CON from 04/06/2020 FINDINGS: No fracture or dislocation. No lytic or blastic change. There is normal mineralization. The joint spaces are well-preserved. No significant degenerative/arthritic changes. No erosive changes evident. Other findings:No obvious fracture of the cuneiforms. IMPRESSION: No acute findings. Dictated by: Darryl Prieto MD 05/01/2020 17:28 Darryl Prieto MD in [place] 05/01/2020 17:28
== END ==
PROVIDERS: PCP Internal Medicine Adolescent Medicine; Visit Provider Podiatrist
DX: M76.822 Posterior tibial tendinitis, left leg (principal)
CPT/HCPCS: 73610; 73630

== ENCOUNTER 2020-06-15 16:00 | Outpatient (RCR) | payer BC, SELFPAY ==
--- NOTE | 2020-06-06 17:51 | HMH.PTOPEV ---
PT Outpatient Evaluation Rehab PT Outpatient Evaluation Start: 06/06/20 17:07 Freq: Status: Active Protocol: Document 06/06/20 17:38 LIZ (Rec: 06/06/20 17:51 LIZ [id number]) Electronically Signed By Chemo Dukes, PT 06/06/20 17:38 Outpatient Therapy Subjective History Subjective History Patient is a 39 year old male presenting to outpatient PT with reports of chronic L foot /ankle pain starting approximately 10 years ago that has progressively gotten worse over the past 20 months. She reports that she had an accident in a child in which she cut some tendons in the arch of her foot. Visible scar consistent with posterior tibials distal insertion area . Palpable tenderness to mid- substance post-tib. She had a previous episode of PT 2 months ago that provided some relief. She is currently in a CAM walker, but is able to be out of it for approx 2 hr/day . Comorbidities include hx of asthma, diabetes and hypothyroidism. Chief Complaint Pain,Swelling Symptom Type Ache,Dull Symptoms Relieved By Rest/Positioning,Prescription Meds Symptoms Aggravated By Standing,Physical Activity, Walking Prior Functional Limitations None Current Functional Limitations Housework,Standing,Recreation Activity,Walking,Stairs, Balance Symptom Description Constant but Variable Level of pain today (0-10) 2 Pain scale - at its best (0-10) 1 Pain scale - at its worst (0-10) 5 Ankle/Foot Eval Gait Observation General Gait Pattern Observation Antalgic Gait,Decrease Weight Bear (L) Palpation Tenderness left Ankle/Foot Palpation Findings Tenderness Ankle/Foot Palpation Overall Comment distal posterior tibialis insertion 3/4 ROM Ankle/Foot Dorsiflexion w/Knee Extended -2 Active Range Motion (degrees) Ankle/Foot Dorsiflexion w/Knee Extended 4 Passive Range (degrees) Ankle/Foot Plantar Flexion Active Range WNL of Motion (degrees) Ankle/Foot Eversion Active Range of 12 Motion (degrees)
== END 2020-06-15 16:05 | disposition home or self-care (01) ==
LOC: PT 16:00
PROVIDERS: PCP Internal Medicine Adolescent Medicine; Visit Provider Podiatrist
DX: S96.912A Strain of unspecified muscle and tendon at ankle and foot level, left foot, initial encounter (principal)
CPT/HCPCS: 97010; 97014; 97033; 97035; 97110; 97140; 97163; G0283

== ENCOUNTER → 2020-07-11 15:13 | Outpatient (CLI) | payer BC, SELFPAY ==
[2020-07-11 15:50] LABS: Chloride 100 mmol/L (98-107); Sodium 135 mmol/L (136-145)
[2020-07-11 15:52] LABS: Blood Urea Nitrogen 11 mg/dl (7-17); Estimated Glomerular Filt Rate 61 ml/min (>60); GFR (African American) 74 ML/MIN (>60)
[2020-07-11 15:53] LABS: Alanine Aminotransferase 24 U/L (12-78); Albumin Level 4.9 g/dl (3.5-5.0); Albumin/Globulin Ratio 1.6 (1.1-1.8); Alkaline Phosphatase 44 U/L (38-126); Aspartate Amino Transferase 29 U/L (14-36); Bilirubin,Total 0.6 mg/dl (0.2-1.3); Carbon Dioxide 28 mmol/L (22.0-30.0); Total Protein,Serum 7.9 g/dl (6.3-8.2)
[2020-07-11 15:54] LABS: Calcium 9.8 mg/dl (8.4-10.2); Glucose 90 mg/dl (74-100)
[2020-07-11 15:58] LABS: Hemoglobin A1C 5.3 % (4.0-6.0)
[2020-07-11 18:04] LABS: Uric Acid 3.4 mg/dl (2.5-6.2)
== END ==
PROVIDERS: Visit Provider Internal Medicine Adolescent Medicine
DX: E11.9 Type 2 diabetes mellitus without complications (principal); E03.9 Hypothyroidism, unspecified; M79.672 Pain in left foot; Z79.84 Long term (current) use of oral hypoglycemic drugs
CPT/HCPCS: 36415; 80053; 83036; 84443; 84550

== ENCOUNTER → 2020-08-11 13:27 | Outpatient (CLI) | payer BC, SELFPAY | PROVIDERS: PCP Nurse Practitioner Family; Visit Provider Nurse Practitioner Family | DX: Z11.52 Encounter for screening for COVID-19 (principal) | CPT/HCPCS: U0003 ==

== ENCOUNTER 2020-10-25 09:43 | Emergency (ER) | payer BC, SELFPAY ==
[2020-10-25 09:52] VITALS: BP 139/79; PULSE 75; RESP 14; TEMP 36.9; O2SAT 100; BMI 25.2
[2020-10-25 09:56] VITALS: BP 139/79; PULSE 75; RESP 14; TEMP 36.9; O2SAT 100; BMI 25.2
--- NOTE | 2020-10-25 10:02 | HMH.EDUTC ---
[facility] Clinical Impression: Sinusitis Qualifiers: Sinusitis location: unspecified location Chronicity: unspecified Qualified Code(s): J32.9 - Chronic sinusitis, unspecified Disposition: Home, Self-Care Condition on Discharge: Good Instructions: Sinusitis, DI for Sinusitis, Amoxicillin and Clavulanic Acid Additional Instructions: *Monitor Temp, Over the counter Motrin or Tylenol as directed/as needed Tylenol every 4 hours and Motrin every 6 hours (as long as your family doctor has told you that you can take it) for fever or pain. and straight to ER if unable to lower temp less than 101.0 after medication given *Warm salt water gargles may help to soothe the throat *Throat Lozenges *Warm fluids like tea with honey may help to soothe the throat *Sleep elevated *Humidifier/Vaporizer *Flonase 2 sprays in each nostril daily but be aware that it may take 2-3 days before you notice improvement Take medication as prescribed Follow up IMMEDIATELY for new or worsening symptoms or no Noticeable improvement over the next 48-72 hours. 911 for difficulty breathing or swallowing Prescriptions: Amoxicillin/Potassium Clav [Augmentin 875-125 Tablet] 1 tab PO Q12H 10 Days #20 tab Transmission Status: Received by [facility] methylPREDNISolone [Medrol 4mg tab] 4 mg PO DIRECTED #21 tab Transmission Status: Received by [facility] Benzonatate [Tessalon Perle 100mg Cap*] 100 mg PO TID PRN #15 cap PRN Reason: Cough Transmission Status: Received by [facility] Referrals: Bryon Chandra MD [Primary Care Provider] - As needed Forms: Work/School Release Time of Disposition: 10:09 Medical Decision Making - [place] Inquiry Pt receiving controlled substance: No [place] was queried for this patient: No Vital Signs: 10/25/20 09:52 10/25/20 09:56 10/25/20 10:19 Temperature 98.5 F 98.5 F 98 F Temperature Source Oral Oral Pulse Rate 79 Pulse Rate [Right] 75 75 Respiratory Rate 14 14 15 Blood Pressure 135/82 Blood Pressure [Right Arm] 139/79 139/79 Blood Pressure Mean [Right Arm] 99 99 Blood Pressure Source [Right Arm] Automatic Cuff Automatic Cuff Blood Pressure Position [Right Arm] Sitting Sitting 02 Sat by Pulse Oximetry 100 100 Oxygen Delivery Method Room Air Room Air Medical Decision Narrative: Patient State that she is allergic to Cefdinir but has taken Augmentin in the past without complications or reactions [facility] - General Stated complaint: sinus and cough Time Seen by Provider: 10/25/20 10:02 HEENT Symptoms (Recalled from RN notes): Yes (sinus pressure) Resp Symptoms (Recalled from RN notes): Yes (productive cough with green sputum) Skin Symptoms (Recalled from RN notes): No MS Symptoms (Recalled from RN notes): No Functional Status (Recalled from RN notes): na - History of Present Illness Provider Complaint: Patient states that she has been having sinus pain and pressure along with PND and pressure behind her eyes and in her teeth for about 2 weeks States that she has been taking her allergy medication but feels like she has a sinus infection and it is not getting any better States that she has also been having pressure like feeling in her ears and scratchy throat - Related Data Home Medications Medication Instructions Recorded Confirmed Metformin HCl 500 mg PO DAILY 05/01/18 05/22/20 Ipratropium/Albuterol Sulfate 3 ml IH QID 08/10/19 05/22/20 [Duoneb 3mL neb] Levothyroxine Sodium 200 mcg PO DAILY 08/10/19 05/22/20 [Levothyroxine 200mcg (0.2mg) Tab] Fluticasone/Umeclidin/Vilanter 1 puff INHALATION DAILY 09/07/19 05/22/20 [Trelegy Ellipta 100-62.5-25] albuterol sulfate 90 mcg/actuation INHALATION 05/01/20 05/22/20 aerosol inhaler diclofenac sodium 75 mg PO 05/01/20 05/22/20 tablet,delayed release fluticasone furoate 200 1 inh INHALATION each 05/01/20 05/22/20 mcg-vilanterol 25 mcg/dose inhalation powder Previous Rx's Medicatio
[2020-10-25 10:19] VITALS: BP 135/82; PULSE 79; RESP 15; TEMP 36.6
== END 2020-10-25 10:19 | disposition home or self-care (01) ==
PROVIDERS: Emergency Provider Nurse Practitioner; PCP Internal Medicine Adolescent Medicine
DX: J32.9 Chronic sinusitis, unspecified (principal); E11.9 Type 2 diabetes mellitus without complications; E03.9 Hypothyroidism, unspecified; Z88.2 Allergy status to sulfonamides; Z79.899 Other long term (current) drug therapy
CPT/HCPCS: 99202; G0463

== ENCOUNTER 2020-11-23 12:46 | Emergency (ER) | payer BC, SELFPAY ==
[2020-11-23 12:47] VITALS: BP 141/88; PULSE 90; RESP 18; TEMP 36.6; O2SAT 99; BMI 24.7
--- NOTE | 2020-11-23 13:12 | HMH.EDUTC ---
[facility] [place] Clinical Impression: Sinusitis Qualifiers: Sinusitis location: unspecified location Chronicity: unspecified Qualified Code(s): J32.9 - Chronic sinusitis, unspecified Disposition: Home, Self-Care Condition on Discharge: Good Instructions: Sinusitis, DI for Sinusitis, DI for Cough -- Adult, Doxycycline Additional Instructions: ? Your antibioitic prescription was printed please Start antibiotic in the next couple of days if symptoms do not improve. Be sure to complete entire prescription even if feeling better ? Monitor temp. Tylenol every 4 hours as needed and / or ibuprofen every 6 hours as needed ( As long as your primary care physician has told you that it ok to take both. For fever/aches/pains ER if no less than 101 despite Tylenol or Motrin ? Humidifier/vaporizer or hot steamy shower ? Inhaler every 4-6 hours as needed like we discussed. If unsure how to use it, ask pharmacist to demonstrate how. Should help open airways and improve cough, wheezing, and shortness of breath ? Mucinex Be sure to drink lots of water. You were tested for today for COVID19 your test result should be back in the next 24-48 hours, you may call to the [facility] to see if your test results are back in the next 48 hours [phone] [facility] hours are 9am-9pm You was given a handout with instructions for Self Quarantine and Self isolation for while you wait on test results and what to do if they are positive If you are positive the Health Dept will be contacting you also Follow up IMMEDIATELY for new or worsening of symptoms OR no noticeable improvement over the next 48-72 hours. 911 immediately for any life threatening symptoms such as chest pain or difficulty breathing Prescriptions: Doxycycline Monohydrate [Doxycycline [place] 100mg Tab] 100 mg PO Q12 7 Days #14 tab Prescription Printed Fluticasone Propionate [Flonase 50mcg nasal spray 16gm] 1 spr NS DAILY #1 bottle Transmission Status: Received by [facility] guaiFENesin [Mucinex 600mg tablet] 1 - 2 tab PO BID PRN #20 tab.er.12h PRN Reason: Congestion Transmission Status: Received by [facility] Referrals: Bryon Chandra MD [Primary Care Provider] - As needed Forms: Work/School Release Time of Disposition: 13:35 Medical Decision Making - Devonte Inquiry Pt receiving controlled substance: No Devonte was queried for this patient: No Vital Signs: 11/23/20 12:47 Temperature 97.8 F Temperature Source Oral Pulse Rate [Right] 90 Respiratory Rate 18 Blood Pressure [Right Arm] 141/88 H Blood Pressure Mean [Right Arm] 105 02 Sat by Pulse Oximetry 99 Oxygen Delivery Method Room Air Orders (Tests/Meds): ORDERS Category Date Time Status Covid-19 Nasal PCR ([facility]) Routine Lab 11/23/20 13:20 Received [facility] [place] - General Stated complaint: fatique,headache Time Seen by Provider: 11/23/20 13:00 Mode of Arrival: Family Vehicle Source of Information: Patient Limitations: No Limitations Description of Symptoms (Recalled from Triage Doc. by RN): PT C/O COUGH, FATIQUE, EAR PAIN AND NAUSEA FOR THE LAST THREE WEEKS. PT REPORTS SHE WAS TREATED FOR A SINUS INFECTION ON 10/25/20 AND HAS HAD A COUGH SINCE. HEENT Symptoms (Recalled from RN notes): Yes Resp Symptoms (Recalled from RN notes): No Skin Symptoms (Recalled from RN notes): No MS Symptoms (Recalled from RN notes): No Functional Status (Recalled from RN notes): NA - History of Present Illness Provider Complaint: Patient states that she was seen and treated about a month ago for Sinus infection States that she took all the medication and it helped but now symptoms have returned States that she is having cough, sinus pressure under her eyes and feeling of fullness in both ears States that pain in right ear and over all not feeling well States that she is unsure if she has been exposed to COVID or not - Related Data Home Medications Medication Instructions Recorded Confirmed Metformin HCl 500 mg PO DAILY 05/01/1805/22
[2020-11-23 13:43] VITALS: BP 138/81; PULSE 78; RESP 18; TEMP 36.6; O2SAT 99
--- NOTE | 2020-11-23 16:33 | PC.NURSE ---
CALLED PATIENT AND INFORMED HER OF HER POSITIVE COVID RESULT AND RECOMMENCED TO
--- NOTE | 2020-11-23 16:35 | PC.NURSE ---
CALLED PATIENT AND INFORMED PATIENT OF POSITIVE COVID RESULTS. INFORMED PATIENT SHE NEEDED TO QUARANTINE FOR 10 DAYS OR WHATEVER THE HEALTH DEPARTMENT CALLS AND RECOMMENDS
== END 2020-11-23 13:40 | disposition home or self-care (01) ==
PROVIDERS: Emergency Provider Nurse Practitioner; PCP Internal Medicine Adolescent Medicine
DX: U07.1 COVID-19 (principal); J32.9 Chronic sinusitis, unspecified; E11.9 Type 2 diabetes mellitus without complications; Z79.84 Long term (current) use of oral hypoglycemic drugs; Z88.2 Allergy status to sulfonamides; Z79.899 Other long term (current) drug therapy
CPT/HCPCS: 99202; G0463; U0003

== ENCOUNTER 2021-02-07 15:18 | Emergency (ER) | payer BC, SELFPAY ==
[2021-02-07 15:20] VITALS: BP 155/83; PULSE 84; RESP 20; TEMP 36.7; O2SAT 100; BMI 25.1
--- NOTE | 2021-02-07 16:01 | HMH.EDUTC ---
[facility] [place]ression: Low back pain Qualifiers: Chronicity: acute Back pain laterality: bilateral Sciatica presence: with sciatica Sciatica laterality: bilateral sciatica Qualified Code(s): M54.42 - Lumbago with sciatica, left side Low back strain Qualifiers: Encounter type: initial encounter Qualified Code(s): S39.012A - Strain of muscle, fascia and tendon of lower back, initial encounter Disposition: Home, Self-Care Condition on Discharge: Good Instructions: Low Back Pain, DI for Low Back Pain Additional Instructions: Go home and rest. It would be best if you rested tomorrow too. No heavy lifting. No twisting. Take the oral medications as directed. The muscle relaxer (cyclobenzaprine) will make you drowsy, so don't drive or operate heavy machinery after taking it. Don't start the oral steroids (medrol dose pack) until tomorrow, since you had the shots in here today. Follow up with your regular doctor. GO TO THE ER FOR ANY WORSENING SYMPTOMS OR CONCERN, ESPECIALLY BOWEL OR BLADDER ISSUES, SADDLE AREA NUMBNESS, FEVER, ETC Prescriptions: Cyclobenzaprine HCl [Cyclobenzaprine 10mg Tab] 10 mg PO BIDP PRN #20 tab PRN Reason: Muscle Spasm Transmission Status: Received by [facility] methylPREDNISolone [Medrol] 4 mg PO DIRECTED 6 Days #21 tab.ds.pk Transmission Status: Received by [facility] Referrals: Bryon Chandra MD [Primary Care Provider] - Time of Disposition: 16:31 Medical Decision Making - Medical Records Medical records reviewed: No: I reviewed the patient's medical records. - Devonte Inquiry Pt receiving controlled substance: No Vital Signs: 02/07/21 15:20 02/07/21 16:19 Temperature 98.1 F 98.1 F Temperature Source Oral Pulse Rate 84 Pulse Rate [Right Brachial] 84 Respiratory Rate 20 20 Blood Pressure 155/83 H Blood Pressure [Right Arm] 155/83 H Blood Pressure Mean [Right Arm] 107 Blood Pressure Source [Right Arm] Automatic Cuff Blood Pressure Position [Right Arm] Sitting 02 Sat by Pulse Oximetry 100 Oxygen Delivery Method Room Air - Lab Data Lab results reviewed: Yes: I reviewed the patient's lab results. Orders (Tests/Meds): ED MEDICATIONS Discontinued Medications Generic Name Dose Route Start Last Admin Trade Name Freq PRN Reason Stop Dose Admin Ketorolac Tromethamine 60 mg 02/07/21 16:08 02/07/21 16:18 Ketorolac 60mg/2ml Vial IM 02/07/21 16:09 60 mg ONCE ONE Administration Methylprednisolone Sodium Succinate 125 mg 02/07/21 16:08 02/07/21 16:18 Methylprednisolone Sod Succ 125mg Vial IM 02/07/21 16:09 125 mg ONCE ONE Administration [facility] [place] General Stated complaint: poss pulled muscle in lower back Time Seen by Provider: 02/07/21 16:03 Mode of Arrival: Ambulatory Source of Information: Patient Limitations: No Limitations Description of Symptoms (Recalled from Triage Doc. by RN): PATIENT C/O MUSCLE SPASMS TO LOWER BACK SINCE YESTERDAY. STATES SHE WAS WORKING IN HER [place] AND THE PAIN STARTED AFTER SHE BENT OVER AND TWISTED. 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 She began having low back pain afterwards. - Related Data Home Medications Medication Instructions Recorded Confirmed Metformin HCl 500 mg PO DAILY 05/01/18 02/07/21 diclofenac sodium 75 mg 75 mg PO DAILYP PRN 05/01/20 02/07/21 tablet,delayed release Fluticasone/Salmeterol [Advair 1 inh IH BID 02/07/21 02/07/21 250/50mcg Diskus] Levothyroxine Sodium 200 mcg PO DAILY 02/07/21 02/07/21 [Levothyroxine] P
[2021-02-07 16:19] VITALS: BP 155/83; PULSE 84; RESP 20; TEMP 36.7; O2SAT 100
== END 2021-02-07 16:37 | disposition home or self-care (01) ==
PROVIDERS: Emergency Provider Nurse Practitioner Family; PCP Internal Medicine Adolescent Medicine
DX: S39.012A Strain of muscle, fascia and tendon of lower back, initial encounter (principal); M54.42 Lumbago with sciatica, left side; E03.9 Hypothyroidism, unspecified; E11.9 Type 2 diabetes mellitus without complications; Z88.2 Allergy status to sulfonamides; X50.0XXA Overexertion from strenuous movement or load, initial encounter; Y92.019 Unspecified place in single-family (private) house as the place of occurrence of the external cause
CPT/HCPCS: 96372; 99202; G0463

== ENCOUNTER 2021-03-29 09:56 | Emergency (ER) | payer BC, SELFPAY ==
[2021-03-29 11:26] VITALS: BP 131/72; PULSE 66; RESP 18; TEMP 36.7; O2SAT 97; BMI 29.3
--- NOTE | 2021-03-29 11:47 | HMH.EDUTC ---
[facility] Disposition Clinical Impression: Exposure to COVID-19 virus Disposition: Home, Self-Care Condition on Discharge: Good Instructions: DI for COVID-19 (Suspected or Confirmed ), Coronavirus Disease 2019, Preventing the Spread of Coronavirus Discharge Instructions Additional Instructions: *Monitor Temp, Over the counter Motrin or Tylenol as directed/as needed Tylenol every 4 hours and Motrin every 6 hours (as long as your family doctor has told you that you can take it) for fever or pain. and straight to ER if unable to lower temp less than 101.0 after medication given *Warm salt water gargles may help to soothe the throat *Throat Lozenges *Warm fluids like tea with honey may help to soothe the throat *Sleep elevated *Humidifier/Vaporizer Follow up IMMEDIATELY for new or worsening symptoms or no Noticeable improvement over the next 48-72 hours. 911 for difficulty breathing or swallowing You were tested for today for COVID19 your test result should be back in the next 24-48 hours, you may call to the [facility] to see if your test results are back in the next 48 hours [phone] [facility] hours are 9am-9pm You was given a handout with instructions for Self Quarantine and Self isolation for while you wait on test results and what to do if they are positive If you are positive the Health Dept will be contacting you also Make sure to take your Vitamins Vit. C Vit D and Zinc if you can take them Prescriptions: Fluticasone Propionate [Flonase 50mcg nasal spray 16gm] 1 spr NS DAILY #1 ml Transmission Status: Pending to [facility] Benzonatate [Tessalon Perle 100mg Cap*] 100 mg PO TID PRN #15 cap PRN Reason: Cough Transmission Status: Pending to [facility] Referrals: Bryon Chandra MD [Primary Care Provider] - As needed Forms: Work/School Release Time of Disposition: 12:03 Medical Decision Making - Devonte Inquiry Pt receiving controlled substance: No Devonte was queried for this patient: No Vital Signs: 03/29/21 11:26 Temperature 98.1 F Temperature Source Oral Pulse Rate [Right] 66 Respiratory Rate 18 Blood Pressure [Right Arm] 131/72 Blood Pressure Mean [Right Arm] 91 02 Sat by Pulse Oximetry 97 Oxygen Delivery Method Room Air Orders (Tests/Meds): ORDERS Category Date Time Status Covid-19 Nasal PCR ([facility]) Routine Lab 03/29/21 11:22 Ordered [facility] [place] HPI - General Stated complaint: covid exposure, symptoms Time Seen by Provider: 03/29/21 11:47 Mode of Arrival: Family Vehicle Source of Information: Patient Limitations: No Limitations Description of Symptoms (Recalled from Triage Doc. by RN): Patient c/o COVID exposure recently. Reports started experiencing mylagia, ear pain, headache and facial pain since yesterday. Denies fever's N/V/D and SOA HEENT Symptoms (Recalled from RN notes): Yes Resp Symptoms (Recalled from RN notes): No Skin Symptoms (Recalled from RN notes): No MS Symptoms (Recalled from RN notes): Yes Functional Status (Recalled from RN notes): NA - History of Present Illness Provider Complaint: Patient states that she was around someone last week that tested positive for COVID states that she has been having nasal congestion, achy like feeling in her body, feeling pressure and pain in her ears, and pain in her throat State thats that she feels like skin on her face is sore and tenderness under her eyes State that she came in today wanting to get tested for COVID - Related Data Home Medications Medication Instructions Recorded Confirmed Metformin HCl 500 mg PO DAILY 05/01/18 02/07/21 diclofenac sodium 75 mg 75 mg PO DAILYP PRN 05/01/20 02/07/21 tablet,delayed release Fluticasone/Salmeterol [Advair 1 inh IH BID 02/07/21 02/07/21 250/50mcg Diskus] Levothyroxine Sodium 200 mcg PO DAILY 02/07/21 02/07/21 [Levothyroxine] Previous Rx's Medication Instructions Recorded Cyclobenzaprine HCl 10 mg PO BIDP PRN #20 tab 02/07/21 [Cyclobenzaprine 10mg Tab] meth
[2021-03-29 12:25] VITALS: BP 127/75; PULSE 75; RESP 18; TEMP 37; O2SAT 99
== END 2021-03-29 12:16 | disposition home or self-care (01) ==
PROVIDERS: Emergency Provider Nurse Practitioner; PCP Internal Medicine Adolescent Medicine
DX: Z20.822 Contact with and (suspected) exposure to COVID-19 (principal); J02.9 Acute pharyngitis, unspecified; M79.18 Myalgia, other site; E03.9 Hypothyroidism, unspecified; E11.9 Type 2 diabetes mellitus without complications; Z79.899 Other long term (current) drug therapy
CPT/HCPCS: 99202; G0463; U0003

== ENCOUNTER → 2021-03-31 07:30 | Outpatient (CLI) | payer BC, SELFPAY ==
[2021-03-31 07:43] LABS: Basophils # 0.1 K/mm3 (0-0.2); Basophils % 0.9 % (0.1-2.0); Eosinophils # 0.3 K/mm3 (0.0-0.4); Eosinophils % 3.6 % (0.1-12.0); Hematocrit 42.8 % (37.0-47.0); Hemoglobin 14.2 g/dL (12.2-16.2); Lymphocytes % 26.9 % (10-50); Mean Corpuscular HGB Conc 33.1 g/dL (31.8-35.4); Mean Corpuscular Hemoglobin 31.3 pg (27.0-31.2); Mean Corpuscular Volume 94.3 fl (81-99); Mean Platelet Volume 8.4 fl (7.4-10.4); Monocytes # 0.4 K/mm3 (0.1-1.0); Monocytes % 5.9 % (1.7-9.3); Neutrophils # 4.6 K/mm3 (1.8-7.8); Neutrophils % 62.6 % (37.0-80.0); Platelet Count 345 K/mm3 (142-424); Red Blood Count 4.54 M/mm3 (4.20-5.40); White Blood Count 7.3 K/mm3 (4.8-10.8)
[2021-03-31 09:43] LABS: Hemoglobin A1C 5.6 % (4.0-6.0)
[2021-03-31 12:17] LABS: Free Thyroxine Index 4.1 ug/dL (5.93-13.13); T4 (Thyroxine) 11.3 ug/dl (5.53-11.0); Triiodothryronine (T3) Uptake 36 % (23.5-40.5)
[2021-03-31 14:23] LABS: Alanine Aminotransferase 17 U/L (12-78); Albumin Level 4.2 g/dl (3.5-5.0); Albumin/Globulin Ratio 1.6 (1.1-1.8); Alkaline Phosphatase 40 U/L (38-126); Anion Gap 16.8 mEq/L (5-15); Aspartate Amino Transferase 24 U/L (14-36); Bilirubin,Total 0.4 mg/dl (0.2-1.3); Blood Urea Nitrogen 13 mg/dl (7-17); Carbon Dioxide 24 mmol/L (22.0-30.0); Chloride 101 mmol/L (98-107); Chol/HDL Ratio 2.6 (1-3.5); Cholesterol 162 mg/dl (140-200); Estimated Glomerular Filt Rate 79 ml/min (>60); GFR (African American) 96 ML/MIN (>60); Globulin 2.6 g/dL (1.3-3.2); Glucose 84 mg/dl (74-100); HDL Cholesterol 62 mg/dl (40-60); Potassium 4.8 mmoL/L (3.5-5.1); Sodium 137 mmol/L (136-145); Total Protein,Serum 6.8 g/dl (6.3-8.2); Triglycerides 108 mg/dl (30-150); VLDL Cholesterol 22 mg/dL (0-40)
[2021-03-31 14:34] LABS: Direct LDL Cholesterol 71.39 mg/dL (100-129)
[2021-03-31 15:11] LABS: Vitamin B12 959 pg/mL (239-931)
== END ==
PROVIDERS: Visit Provider Internal Medicine Adolescent Medicine
DX: Z00.00 Encounter for general adult medical examination without abnormal findings (principal); E11.9 Type 2 diabetes mellitus without complications; E03.9 Hypothyroidism, unspecified; J45.40 Moderate persistent asthma, uncomplicated; Z79.84 Long term (current) use of oral hypoglycemic drugs
CPT/HCPCS: 36415; 80053; 80061; 82607; 83036; 84436; 84443; 84479; 85025

== ENCOUNTER 2021-03-31 11:54 | Emergency (ER) | payer BC, SELFPAY ==
--- NOTE | 2021-03-31 13:15 | HMH.EDUTC ---
[facility] [place] Clinical Impression: Exposure to COVID-19 virus Sinusitis Qualifiers: Sinusitis location: unspecified location Chronicity: acute Recurrence: non-recurrent Qualified Code(s): J01.90 - Acute sinusitis, unspecified Disposition: Home, Self-Care Condition on Discharge: Good Instructions: DI for Sinusitis, Preventing the Spread of Coronavirus Discharge Instructions Additional Instructions: Drink plenty of fluids. Take tylenol or ibuprofen for pain or fever. Take the medications as directed. Follow up with your regular doctor. GO TO THE ER FOR ANY WORSENING SYMPTOMS Quarantine until you know the results of your covid-19 test. If it is positive, the health department should call you and give you further instructions about your length of Quarantine and other things. Notify your school or workplace of your results and follow their instructions regarding return to work/school. Don't start the oral steroids until tomorrow, since you had the shot here today. The cough medication (promethazine dm) will make you drowsy, so don't drive or operate heavy machinery after taking it. Prescriptions: Brompheniramine/Pseudoephed/Dm [Bromfed Dm Cough Syrup] 5 ml PO Q6HP PRN #240 syrup PRN Reason: Cough Transmission Status: Received by [facility] methylPREDNISolone [Medrol] 4 mg PO DIRECTED 6 Days #21 tab.ds.pk Transmission Status: Received by [facility] Azithromycin [Z-Kalyan 250mg Tab*] 250 mg PO UD DOSE PK #6 tab Transmission Status: Received by [facility] Referrals: Bryon Chandra MD [Primary Care Provider] - Forms: Work/School Release Time of Disposition: 13:42 Medical Decision Making - Medical Records Medical records reviewed: No: I reviewed the patient's medical records. - Devonte Inquiry Pt receiving controlled substance: No Vital Signs: 03/31/21 13:37 03/31/21 14:00 Temperature 98.3 F 98.4 F Temperature Source Oral Pulse Rate 82 Pulse Rate [Left] 68 Respiratory Rate 16 18 Blood Pressure 137/85 Blood Pressure [Right Arm] 143/88 H Blood Pressure Mean [Right Arm] 106 02 Sat by Pulse Oximetry 100 Orders (Tests/Meds): ED MEDICATIONS Discontinued Medications Generic Name Dose Route Start Last Admin Trade Name Freq PRN Reason Stop Dose Admin Methylprednisolone Sodium Succinate 125 mg 03/31/21 13:15 03/31/21 13:56 Methylprednisolone Sod Succ 125mg Vial IM 03/31/21 13:16 125 mg ONCE ONE Administration [facility] [place] - General Stated complaint: sinus pain Time Seen by Provider: 03/31/21 13:15 - History of Present Illness Provider Complaint: She states that for the past 5 days she has been getting more sinus congestion and she has been feeling bad. She feels like she is getting a sinus infection. She had a negative covid test last week, but she would like this repeated also. - Related Data Home Medications Medication Instructions Recorded Confirmed Metformin HCl 500 mg PO DAILY 05/01/18 02/07/21 diclofenac sodium 75 mg 75 mg PO DAILYP PRN 05/01/20 02/07/21 tablet,delayed release Fluticasone/Salmeterol [Advair 1 inh IH BID 02/07/21 02/07/21 250/50mcg Diskus] Levothyroxine Sodium 200 mcg PO DAILY 02/07/21 02/07/21 [Levothyroxine] Previous Rx's Medication Instructions Recorded Cyclobenzaprine HCl 10 mg PO BIDP PRN #20 tab 02/07/21 [Cyclobenzaprine 10mg Tab] methylPREDNISolone [Medrol] 4 mg PO DIRECTED 6 Days #21 02/07/21 tab.ds.pk Benzonatate [Tessalon Perle 100mg 100 mg PO TID PRN #15 cap 03/29/21 Cap*] Fluticasone Propionate [Flonase 1 spr NS DAILY #1 ml 03/29/21 50mcg nasal spray 16gm] Azithromycin [Z-Kalyan 250mg Tab*] 250 mg PO UD DOSE PK #6 tab 03/31/21 Brompheniramine/Pseudoephed/Dm 5 ml PO Q6HP PRN #240 syrup 03/31/21 [Bromfed Dm Cough Syrup] methylPREDNISolone [Medrol] 4 mg PO DIRECTED 6 Days #21 03/31/21 tab.ds.pk Allergies Allergy/AdvReac Type Severity Reactio
[2021-03-31 13:37] VITALS: BP 143/88; PULSE 68; RESP 16; TEMP 36.8; O2SAT 100; BMI 26.1
[2021-03-31 14:00] VITALS: BP 137/85; PULSE 82; RESP 18; TEMP 36.9
== END 2021-03-31 14:04 | disposition home or self-care (01) ==
PROVIDERS: Emergency Provider Nurse Practitioner Family; PCP Internal Medicine Adolescent Medicine
DX: J01.90 Acute sinusitis, unspecified (principal); Z20.822 Contact with and (suspected) exposure to COVID-19; E11.9 Type 2 diabetes mellitus without complications; E03.9 Hypothyroidism, unspecified; Z79.899 Other long term (current) drug therapy; Z88.2 Allergy status to sulfonamides
CPT/HCPCS: 96372; 99202; G0463; U0003

== ENCOUNTER 2021-04-18 08:58 | Emergency (ER) | payer BC, SELFPAY ==
[2021-04-18 09:12] VITALS: PULSE 89; RESP 20; TEMP 36.7; O2SAT 99; BMI 32.9
[2021-04-18 09:16] VITALS: BP 133/80; PULSE 89; RESP 20; TEMP 36.7
--- NOTE | 2021-04-18 09:16 | HMH.EDUTC ---
[facility] [place]: Strep [place] Disposition: Home, Self-Care Condition on Discharge: Good Instructions: DI for Strep Throat, DI for COVID-19 (Suspected or Confirmed ), Preventing the Spread of Coronavirus Discharge Instructions Additional Instructions: *Monitor Temp, Over the counter Motrin or Tylenol as directed/as needed Tylenol every 4 hours and Motrin every 6 hours (as long as your family doctor has told you that you can take it) for fever or pain. and straight to ER if unable to lower temp less than 101.0 after medication given *Warm salt water gargles may help to soothe the throat *Throat Lozenges *Warm fluids like tea with honey may help to soothe the throat *Sleep elevated *Humidifier/Vaporizer *If you did not take Penicillin shot or was unable to, start taking antibiotic immediately and make sure that you take it for the FULL length of time although you should start to feel better in 24-48 hours *change toothbrush and toothpaste 24-48 hours after starting to take antibiotics so you do not reinfect yourself Monitor Temp. Tylenol and/or Ibuprofen as needed. ER if fever is no less than 101 despite alternating Tylenol and Ibuprofen * Encourage fluids, water, Gatorade, powerade, pedialyte if infant/toddler/or child *Cold fluids, popsicles and ice cream may feel good on his throat Follow up IMMEDIATELY for new or worsening symptoms or no Noticeable improvement over the next 48-72 hours. 911 for difficulty breathing or swallowing You were tested for today for COVID19 your test result should be back in the next 24-48 hours, you may call to the [facility] to see if your test results are back in the next 48 hours [phone] [facility] hours are 9am-9pm You was given a handout with instructions for Self Quarantine and Self isolation for while you wait on test results and what to do if they are positive If you are positive the Health Dept will be contacting you also Make sure to take your Vitamins Vit. C Vit D and Zinc if you can take them Prescriptions: Amoxicillin [Amoxicillin 500mg Cap] 500 mg PO TID #30 cap Transmission Status: Received by [facility] Fluticasone Propionate [Flonase 50mcg nasal spray 16gm] 1 spr NS DAILY #1 each Transmission Status: Received by [facility] Referrals: Bryon Chandra MD [Primary Care Provider] - As needed Forms: Work/School Release Time of Disposition: 09:25 Medical Decision Making - Devonte Inquiry Pt receiving controlled substance: No Devonte was queried for this patient: No Vital Signs: 04/18/21 09:12 04/18/21 09:16 Temperature 98.1 F 98.1 F Temperature Source Oral Pulse Rate 89 Pulse Rate [Left] 89 Respiratory Rate 20 20 Blood Pressure 133/80 02 Sat by Pulse Oximetry 99 - Lab Data Lab results reviewed: Yes: I reviewed the patient's lab results. Lab Results 04/18/21 09:16: Strep Scn [facility] Positive A Orders (Tests/Meds): ORDERS Category Date Time Status Covid-19 Nasal PCR ([facility]) Routine Lab 04/18/21 09:09 Received Medical Decision Narrative: Patient states she is allergic to Cefdinir but can take Amoxicillin [facility] [place] - General Stated complaint: exposure with symptoms Time Seen by Provider: 04/18/21 09:16 Mode of Arrival: Ambulatory Source of Information: Patient Limitations: No Limitations Description of Symptoms (Recalled from Triage Doc. by RN): pt c/o sore throat, fever, chills, BAÑUELOS, cough and runny nose. exposed 04/15 HEENT Symptoms (Recalled from RN notes): Yes (sore throat, BAÑUELOS, and runny nose) Resp Symptoms (Recalled from RN notes): Yes (cough) Skin Symptoms (Recalled from RN notes): No MS Symptoms (Recalled from RN notes): No Functional Status (Recalled from RN notes): fever and chillls - History of Present Illness Provider Complaint: Patient states that she was around her brother on Friday for short period of time and he tested positive for COVID yesterday States that she started feeling bad on Friday wi
[2021-04-18 09:18] LABS: UTC Strep Screen (Rapid) Positive (Negative)
== END 2021-04-18 09:39 | disposition home or self-care (01) ==
PROVIDERS: Emergency Provider Nurse Practitioner; PCP Internal Medicine Adolescent Medicine
DX: J02.0 Streptococcal pharyngitis (principal); U07.1 COVID-19
CPT/HCPCS: 87880; 99203; C9803; G0463; U0003; U0005

== ENCOUNTER → 2021-06-11 13:43 | Outpatient (CLI) | payer BC, SELFPAY ==
--- NOTE | 2021-06-11 14:00 | CT_ITS ---
PROCEDURE: CT ANGIO CHEST PE PROTOCOL CLINCIAL INDICATION: PLEURITIC CHEST PAIN COMPARISON: CT [facility]AC CTA-CHEST from 07/17/2017 TECHNIQUE: IV Contrast: 70ML Isovue 370 Axial images obtained with sagittal and coronal reformats. All CT scans at the facility use one or more dose reduction, viz: automated exposure control, ma/kV adjustment per patient size (including targeted exams where dose is matched to indication, i.e. head), or iterative reconstruction technique. FINDINGS: HEART AND MEDIASTINAL STRUCTURES: No evidence of pulmonary embolus, aortic aneurysm, or aortic dissection. No mediastinal or hilar mass or adenopathy. LUNGS AND PLEURAL SPACES: Atelectatic or fibrotic changes are present in the right lower lobe medially and right lower lobe anteriorly. Small pneumatocele is present in the left lower lobe 1 cm. There is some minimal faint ground-glass attenuation in the right and left upper lobe medially. No lobar consolidation or collapse. BONY STRUCTURES: No acute bony abnormalities apparent. UPPER ABDOMEN: Unremarkable. ADDITIONAL FINDINGS: No other significant abnormalities. IMPRESSION: No evidence of pulmonary embolus, aortic aneurysm, or aortic dissection. Minimal faint ground-glass attenuation left upper lobe medially and right upper lobe medially. This is nonspecific and could be seen with small airway disease Dictated by: Darryl Prieto MD 06/11/2021 16:03 Darryl Prieto MD in [place] 06/11/2021 16:03
[2021-06-11 14:11] LABS: Basophils # 0.2 K/mm3 (0-0.2); Basophils % 1.3 % (0.1-2.0); Eosinophils # 0.7 K/mm3 (0.0-0.4); Eosinophils % 5.1 % (0.1-12.0); Hematocrit 44.3 % (37.0-47.0); Hemoglobin 14.7 g/dL (12.2-16.2); Lymphocytes # 3.6 K/mm3 (0.7-4.5); Lymphocytes % 25.3 % (10-50); Mean Corpuscular HGB Conc 33.3 g/dL (31.8-35.4); Mean Corpuscular Hemoglobin 31.7 pg (27.0-31.2); Mean Corpuscular Volume 95.2 fl (81-99); Mean Platelet Volume 7.6 fl (7.4-10.4); Monocytes # 0.9 K/mm3 (0.1-1.0); Neutrophils # 8.9 K/mm3 (1.8-7.8); Neutrophils % 62.3 % (37.0-80.0); Platelet Count 500 K/mm3 (142-424); Red Blood Count 4.65 M/mm3 (4.20-5.40); Red Cell Distribution Width 13.5 % (11.5-17.5); White Blood Count 14.3 K/mm3 (4.8-10.8)
--- NOTE | 2021-06-11 14:56 | HMH.ITSTN ---
labs still pending
[2021-06-11 15:12] LABS: Anion Gap 13.2 mEq/L (5-15); Blood Urea Nitrogen 15 mg/dl (7-17); Calcium 9.8 mg/dl (8.4-10.2); Carbon Dioxide 29 mmol/L (22.0-30.0); Chloride 99 mmol/L (98-107); Estimated Glomerular Filt Rate 61 ml/min (>60); GFR (African American) 74 ML/MIN (>60); Glucose 84 mg/dl (74-100); Potassium 4.2 mmoL/L (3.5-5.1); Sodium 137 mmol/L (136-145)
== END ==
PROVIDERS: Visit Provider Internal Medicine Adolescent Medicine
DX: R07.81 Pleurodynia (principal)
CPT/HCPCS: 36415; 71275; 80048; 85025; Q9967

== ENCOUNTER → 2021-06-22 14:41 | Outpatient (CLI) | payer BC, SELFPAY | LOC: RT 14:41 | PROVIDERS: PCP Internal Medicine Adolescent Medicine; Visit Provider Internal Medicine Adolescent Medicine | DX: R91.8 Other nonspecific abnormal finding of lung field (principal); J45.40 Moderate persistent asthma, uncomplicated | CPT/HCPCS: 94060; 94726; 94729 ==

== ENCOUNTER → 2021-10-29 15:06 | Outpatient (CLI) | payer BC, SELFPAY ==
--- NOTE | 2021-10-29 15:13 | XR_ITS ---
FINAL REPORT CLINICAL HISTORY: SOB X 1 WEEK COMPARISON: July 07, 2020 FINDINGS: Two views of the chest were obtained. The heart size and pulmonary vascularity are within normal limits. The mediastinum is normal. No acute pulmonary abnormality is identified. There is no pneumothorax. There is mild leftward curvature of the upper thoracic spine which is stable. IMPRESSION: No active cardiopulmonary disease. Reviewed, Interpreted and Dictated by José Cao III, MD Transcribed by Hero Barkley Authenticated by José Cao III, MD on 10/29/2021 04:01:43 PM [facility]
== END ==
LOC: RAD 15:07
PROVIDERS: PCP Internal Medicine Adolescent Medicine; Visit Provider Internal Medicine Adolescent Medicine
DX: R06.02 Shortness of breath (principal)
CPT/HCPCS: 71046

== ENCOUNTER 2022-07-29 09:20 | Emergency (ER) | payer BC, SELFPAY ==
--- NOTE | 2022-07-29 10:27 | EXP.UTC ---
Discharge Plan Disposition Patient Disposition: Home, Self-Care Condition: Good Prescriptions Prescriptions: New phenazopyridine 200 mg Tablet 200 mg PO TID 2 Days Qty: 6 0RF nitrofurantoin monohyd/m-cryst [Macrobid] 100 mg Capsule 100 mg PO BID Qty: 10 0RF Rx Instructions: must administer with a meal/food No Action diclofenac sodium 75 mg tablet,delayed release (DR/EC) 75 mg PO DAILYP PRN (Reason: PAIN) metformin 500 MG tablet 500 mg PO DAILY fluticasone propion-salmeterol 28 PUFFS blister with device 1 inh IH BID levothyroxine 200 MCG capsule 200 mcg PO DAILY cyclobenzaprine 10 MG tablet 10 mg PO BIDP PRN (Reason: Muscle Spasm) Qty: 20 0RF methylprednisolone 4 MG tablets,dose pack 4 mg PO DIRECTED 6 Days Qty: 21 0RF benzonatate 100 MG capsule 100 mg PO TID PRN (Reason: Cough) Qty: 15 0RF fluticasone propionate 120 SPR/BOT bottle 1 spr NS DAILY Qty: 1 0RF Rx Instructions: each nostril daily azithromycin 250 MG tablet 250 mg PO UD DOSE PK Qty: 6 0RF Rx Instructions: Take two (2) tablets today, then one (1) tablet days #2 thru #5 methylprednisolone 4 MG tablets,dose pack 4 mg PO DIRECTED 6 Days Qty: 21 0RF voosynaqfvihixj-[id number] 118 ML syrup 5 ml PO Q6HP PRN (Reason: Cough) Qty: 240 0RF amoxicillin 500 MG capsule 500 mg PO TID Qty: 30 0RF fluticasone propionate 120 SPR/BOT bottle 1 spr NS DAILY Qty: 1 0RF Rx Instructions: each nostril daily Referrals Follow up/Referrals: Bryon Chandra MD [Primary Care Provider] - See instructions Activity Restrictions/Add. Instructions Additional Instructions/Restrictions: Drink plenty of fluids. Take tylenol or ibuprofen for pain or fever. Take the medications as directed. Follow up with your regular doctor. GO TO THE ER FOR ANY WORSENING SYMPTOMS The pyridium will make your urine turn orange, this is an expected side effect. It will stain your clothes if it comes into contact with them. We will culture the urine. That will tell what bacteria is causing your infection and which antibiotics will treat it best. Sometimes the first antibiotic we prescribe turns out to not work against different bacteria. So, make sure you follow up within 3 days if you are not getting better. Clinical Impressions Clinical Impression: UTI (urinary tract infection) Instructions Patient Instructions: Urine Culture, DI for Urinary Tract Infection (UTI), Phenazopyridine Discharge ED Provider: Srinivasan Lou [facility] [place] General Stated complaint: Burning when pee Time Seen by Provider: 07/29/22 10:27 History of Present Illness Provider Complaint: She states that for the past 3 days she has had burning with urination and she has noticed blood in her urine. Related Data Home Medications Medication Instructions Recorded Confirmed metformin 500 mg tablet 500 mg PO DAILY Diabetes 05/01/18 02/07/21 diclofenac sodium 75 mg 75 mg PO DAILYP PRN PAIN 05/01/20 02/07/21 tablet,delayed release fluticasone 250 mcg-salmeterol 50 1 inh IH BID . 02/07/21 02/07/21 mcg/dose blistr powdr for inhalation levothyroxine 200 mcg capsule 200 mcg PO DAILY THYROID 02/07/21 02/07/21 Previous Rx's Medication Instructions Recorded cyclobenzaprine 10 mg tablet 10 mg PO BIDP PRN Muscle Spasm #20 02/07/21 tabs methylprednisolone 4 mg tablets in 4 mg PO DIRECTED 6 days ##21 02/07/21 a dose pack benzonatate 100 mg capsule 100 mg PO TID PRN Cough #15 caps 03/29/21 fluticasone propionate 50 1 spr NS DAILY #1 mL 03/29/21 mcg/actuation nasal spray,suspension azithromycin 250 mg tablet 250 mg PO UD DOSE PK #6 tabs 03/31/21 [id number]-nrwsshojittsbjz-KK 5 ml PO Q6HP PRN Cough ##240 03/31/21 2 mg-30 mg-10 mg/5 mL oral syrup methylprednisolone 4 mg tablets in 4 mg PO DIRECTED 6 days ##21 03/31/21 a dose pack amoxicillin 500 mg capsule 500 mg PO TID
[2022-07-29 10:34] VITALS: BP 143/103; PULSE 69; RESP 18; TEMP 36.8; O2SAT 100; BMI 25.8
[2022-07-29 10:49] LABS: Apearance,Urine Turbid (Clear); Color,Urine Yellow (Yellow); Glucose,Urine (UA) Negative (Negative); PH,Urine 5.5 (5.0-8.5); Protein,Urine 1+ (Negative); Specific Gravity, Urine 1.025 (1.005-1.030)
[2022-07-29 10:50] LABS: Bilirubin,Urine Negative (Negative); Blood, Urine 3+ (Negative); Ketones,Urine Negative (Negative)
[2022-07-29 10:51] LABS: UTC Leukocyte Esterase,Urine Negative (Negative); UTC Nitrate,Urine Negative (Negative); Urobilinogen,Urine 0.2 EU/dl (0.2)
[2022-07-29 11:05] VITALS: BP 143/103; PULSE 69; RESP 18; TEMP 36.8
== END 2022-07-29 11:10 | disposition home or self-care (01) ==
PROVIDERS: Emergency Provider Nurse Practitioner Family; PCP Internal Medicine Adolescent Medicine
DX: N39.0 Urinary tract infection, site not specified (principal)
CPT/HCPCS: 81003; 87086; 87088; 87186; 99212; G0463

== ENCOUNTER 2022-08-05 07:59 | Emergency (ER) | payer BC, SELFPAY ==
[2022-08-05 08:05] VITALS: BP 142/80; PULSE 64; RESP 19; TEMP 36.7; O2SAT 98; BMI 32.5
[2022-08-05 08:24] LABS: Apearance,Urine Clear (Clear); Blood, Urine Trace (Negative); Color,Urine Yellow (Yellow); Glucose,Urine (UA) Negative (Negative); Ketones,Urine Negative (Negative); PH,Urine 5.5 (5.0-8.5); Protein,Urine Negative (Negative); Specific Gravity, Urine 1.005 (1.005-1.030)
[2022-08-05 08:25] LABS: Bilirubin,Urine Negative (Negative); UTC Leukocyte Esterase,Urine Negative (Negative); UTC Nitrate,Urine Negative (Negative); Urobilinogen,Urine 0.2 EU/dl (0.2)
--- NOTE | 2022-08-05 08:28 | EXP.UTC ---
Discharge Plan Disposition Patient Disposition: Home, Self-Care Condition: Good Prescriptions Prescriptions: New doxycycline hyclate 100 mg tablet 100 mg PO BID 7 Days Qty: 14 0RF No Action diclofenac sodium 75 mg tablet,delayed release (DR/EC) 75 mg PO DAILYP PRN (Reason: PAIN) metformin 500 MG tablet 500 mg PO DAILY fluticasone propion-salmeterol 28 PUFFS blister with device 1 inh IH BID levothyroxine 200 MCG capsule 200 mcg PO DAILY cyclobenzaprine 10 MG tablet 10 mg PO BIDP PRN (Reason: Muscle Spasm) Qty: 20 0RF methylprednisolone 4 MG tablets,dose pack 4 mg PO DIRECTED 6 Days Qty: 21 0RF phenazopyridine 200 mg Tablet 200 mg PO TID 2 Days Qty: 6 0RF nitrofurantoin monohyd/m-cryst [Macrobid] 100 mg Capsule 100 mg PO BID Qty: 10 0RF Rx Instructions: must administer with a meal/food benzonatate 100 MG capsule 100 mg PO TID PRN (Reason: Cough) Qty: 15 0RF fluticasone propionate 120 SPR/BOT bottle 1 spr NS DAILY Qty: 1 0RF Rx Instructions: each nostril daily azithromycin 250 MG tablet 250 mg PO UD DOSE PK Qty: 6 0RF Rx Instructions: Take two (2) tablets today, then one (1) tablet days #2 thru #5 methylprednisolone 4 MG tablets,dose pack 4 mg PO DIRECTED 6 Days Qty: 21 0RF vjarydkyyvdesdw-[id number]-NA 118 ML syrup 5 ml PO Q6HP PRN (Reason: Cough) Qty: 240 0RF amoxicillin 500 MG capsule 500 mg PO TID Qty: 30 0RF fluticasone propionate 120 SPR/BOT bottle 1 spr NS DAILY Qty: 1 0RF Rx Instructions: each nostril daily Referrals Follow up/Referrals: Bryon Chandra MD [Primary Care Provider] - See instructions Activity Restrictions/Add. Instructions Additional Instructions/Restrictions: *Increase fluids. Water not Soda or Tea *Start antibiotic immediately and be sure to take as ordered for the FULL length of time although you should start to see improvement over the next 48 hours *Be SURE to follow up anytime for new or worsening symptoms with your family doctor. AND in 48 hours for urine culture results with your family doctor, if you do not have a doctor then you may call back to the [facility] for urine culture results and further treatment. We do recommend that you choose and establish care with a Primary Care Physician. ?AND follow up with them ?in 10-14 days to repeat UA to ensure infection is resolved and blood no longer present *Be sure to let your PCP know that we sent urine cultures from the [facility] so they can follow up to ensure that you area the on the correct antibiotic Call your doctor office and make appointment for 48 hours (2 days from today) ?to follow up and get the results of your urine culture and further treatment Clinical Impressions Clinical Impression: UTI (urinary tract infection) Qualifiers: Urinary tract infection type: site unspecified Hematuria presence: with hematuria Qualified Code(s): N39.0 - Urinary tract infection, site not specified Instructions Patient Instructions: DI for Urinary Tract Infection (UTI) Discharge ED Provider: [place]ina L[place] [facility] [place] General Stated complaint: Possible UTI Mode of Arrival: Ambulatory Source of Information: Patient Limitations: No Limitations Time Seen by Provider: 08/05/22 08:28 Description of Symptoms (Recalled from Triage Doc. by RN): PATIENT WAS RECENTLY TREATED FOR UTI LAST WEEK BUT DOESN'T FEEL LIKE IT WENT AWAY. SHE REPORTS FINISHING HER ANTIBIOTIC ON FRIDAY. HEENT Symptoms (Recalled from RN notes): No Resp Symptoms (Recalled from RN notes): No Skin Symptoms (Recalled from RN notes): No MS Symptoms (Recalled from RN notes): No Functional Status (Recalled from RN notes): WNL History of Present Illness Provider Complaint: Patient states that she was seen and treated last week for UTI States that she has finished all the medication but still having symptoms States that she has been having achy like feeling in her lower back and feeling
[2022-08-05 08:34] VITALS: BP 142/80; PULSE 64; RESP 19; TEMP 36.7; O2SAT 98
== END 2022-08-05 08:42 | disposition home or self-care (01) ==
PROVIDERS: Emergency Provider Nurse Practitioner; PCP Internal Medicine Adolescent Medicine
DX: N39.0 Urinary tract infection, site not specified (principal)
CPT/HCPCS: 81003; 87086; 99212; 99213; G0463

== ENCOUNTER 2022-08-26 07:58 | Emergency (ER) | payer BC, SELFPAY ==
[2022-08-26 08:05] VITALS: BP 128/80; PULSE 84; RESP 20; TEMP 36.6; O2SAT 100; BMI 27.7
--- NOTE | 2022-08-26 08:34 | EXP.UTC ---
Discharge Plan Disposition Patient Disposition: Home, Self-Care Condition: Good Prescriptions Prescriptions: New azithromycin [Zithromax] 250 mg tablet 250 mg PO UD DOSE PK Qty: 6 0RF Rx Instructions: Take two (2) tablets today, then one (1) tablet days #2 thru #5 benzonatate [benzonatate] 100 mg capsule 100 mg PO TIDP PRN (Reason: Cough) Qty: 30 0RF methylprednisolone 4 mg Tablets,Dose Pack 4 mg PO DIRECTED Qty: 21 0RF No Action fluticasone propion-salmeterol 28 PUFFS blister with device 1 inh IH BID levothyroxine 200 MCG capsule 200 mcg PO DAILY montelukast 10 mg tablet 10 mg PO DAILY fluticasone propionate 120 SPR/BOT bottle 1 spr NS DAILY Qty: 1 0RF Rx Instructions: each nostril daily Referrals Follow up/Referrals: Bryon Chandra MD [Primary Care Provider] - See instructions Activity Restrictions/Add. Instructions Additional Instructions/Restrictions: Drink plenty of fluids. Take tylenol or ibuprofen for pain or fever. Take the medications as directed. Follow up with your regular doctor. GO TO THE ER FOR ANY WORSENING SYMPTOMS Quarantine until you know the results of your covid-19 test. Notify your school or workplace of your results and follow their instructions regarding return to work/school. Clinical Impressions Clinical Impression: Acute viral syndrome, Sinusitis, Bronchitis Stand Alone Forms Stand Alone Forms: Work/School Release Instructions Patient Instructions: DI for Sinusitis, DI for Acute Bronchitis, DI for Viral Syndrome Discharge ED Provider: Srinivasan Lou [facility] General Stated complaint: runny eyes,nose,headache,cough Mode of Arrival: Ambulatory Source of Information: Patient Limitations: No Limitations Time Seen by Provider: 08/26/22 08:34 Description of Symptoms (Recalled from Triage Doc. by RN): runny nose, sneezing, watery eyes, sore throat, muscle pain, fatigue, and BAÑUELOS. HEENT Symptoms (Recalled from RN notes): Yes Resp Symptoms (Recalled from RN notes): No Skin Symptoms (Recalled from RN notes): No MS Symptoms (Recalled from RN notes): No Functional Status (Recalled from RN notes): n/a History of Present Illness Provider Complaint: She states that for the past 2 days she has had worsening sinus congestion, chest congestion, and a cough. She denies fever, but she has had chills and body aches. Related Data Home Medications Medication Instructions Recorded Confirmed fluticasone 250 mcg-salmeterol 50 1 inh IH BID . 02/07/21 08/26/22 mcg/dose blistr powdr for inhalation levothyroxine 200 mcg capsule 200 mcg PO DAILY THYROID 02/07/21 08/26/22 montelukast 10 mg tablet 10 mg PO DAILY Asthma 08/26/22 08/26/22 Previous Rx's Medication Instructions Recorded fluticasone propionate 50 1 spr NS DAILY #1 mL 03/29/21 mcg/actuation nasal spray,suspension azithromycin 250 mg tablet 250 mg PO UD DOSE PK #6 tabs 08/26/22 (Zithromax) benzonatate 100 mg capsule 100 mg PO TIDP PRN Cough #30 caps 08/26/22 methylprednisolone 4 mg tablets in 4 mg PO DIRECTED #21 tabs 08/26/22 a dose pack Allergies Allergy/AdvReac Type Severity Reaction Status Date / Time cefdinir [CEFDINIR] Allergy Intermediate I-HIVES Verified 08/26/22 08:29 Sulfa (Sulfonamide Allergy Intermediate I-RASH Verified 08/26/22 08:29 Antibiotics) [SULFA (SULFONAMIDE ANTIBIOTICS)] Worker's Comp Is this a Worker's Comp case?: No [facility] Disclaimer: The information contained in this section may have been updated after the patient was seen, as this information can be updated by other users. Medical History Asthma Diabetes mellitus, type 2 Thyroid disease Surgical History History of section History of cholecystectomy Social History Smoking S
[2022-08-26 08:36] LABS: UTC Strep Screen (Rapid) Negative (Negative)
[2022-08-26 08:37] LABS: UTC Influenza A Antigen Negative (Negative); UTC Influenza B Antigen Negative (Negative)
[2022-08-26 09:07] VITALS: BP 128/80; PULSE 84; RESP 20; TEMP 36.6; O2SAT 100
== END 2022-08-26 09:06 | disposition home or self-care (01) ==
PROVIDERS: Emergency Provider Nurse Practitioner Family; PCP Internal Medicine Adolescent Medicine
DX: J20.9 Acute bronchitis, unspecified (principal); J32.9 Chronic sinusitis, unspecified
CPT/HCPCS: 87804; 87880; 99212; 99213; C9803; G0463; U0003; U0005

== ENCOUNTER 2022-09-10 08:26 | Emergency (ER) | payer BC, SELFPAY ==
--- NOTE | 2022-09-10 09:44 | EXP.UTC ---
Discharge Plan Disposition Patient Disposition: Home, Self-Care Condition: Good Prescriptions Prescriptions: New benzonatate [benzonatate] 100 mg capsule 100 mg PO TIDP PRN (Reason: Cough) Qty: 30 0RF methylprednisolone 4 mg Tablets,Dose Pack 4 mg PO DIRECTED Qty: 21 0RF amoxicillin-pot clavulanate 875-125 mg Tablet 1 tab PO Q12H Qty: 20 0RF No Action fluticasone propion-salmeterol 28 PUFFS blister with device 1 inh IH BID levothyroxine 200 MCG capsule 200 mcg PO DAILY montelukast 10 mg tablet 10 mg PO DAILY Referrals Follow up/Referrals: Bryon Chandra MD [Primary Care Provider] - See instructions Activity Restrictions/Add. Instructions Additional Instructions/Restrictions: Drink plenty of fluids. Take tylenol or ibuprofen for pain or fever. Take the medications as directed. Follow up with your regular doctor. GO TO THE ER FOR ANY WORSENING SYMPTOMS Clinical Impressions Clinical Impression: Sinusitis, Bronchitis Stand Alone Forms Stand Alone Forms: Work/School Release Instructions Patient Instructions: Acute Bronchitis, DI for Sinusitis, DI for Acute Bronchitis Discharge ED Provider: Srinivasan Lou [facility] [place] General Stated complaint: Nausea headache facial pain fatigue Time Seen by Provider: 09/10/22 09:43 History of Present Illness Provider Complaint: She states that she has been having sinus congestion and a cough for the past 3 weeks. She has been seen already once for this. She states that the medications did help, but she did not get all the way better and now she is getting back worse. Related Data Home Medications Medication Instructions Recorded Confirmed fluticasone 250 mcg-salmeterol 50 1 inh IH BID . 02/07/21 09/10/22 mcg/dose blistr powdr for inhalation levothyroxine 200 mcg capsule 200 mcg PO DAILY THYROID 02/07/21 09/10/22 montelukast 10 mg tablet 10 mg PO DAILY Asthma 08/26/22 09/10/22 Previous Rx's Medication Instructions Recorded amoxicillin 875 mg-potassium 1 tab PO Q12H #20 tabs 09/10/22 clavulanate 125 mg tablet benzonatate 100 mg capsule 100 mg PO TIDP PRN Cough #30 caps 09/10/22 methylprednisolone 4 mg tablets in 4 mg PO DIRECTED #21 tabs 09/10/22 a dose pack Allergies Allergy/AdvReac Type Severity Reaction Status Date / Time cefdinir [CEFDINIR] Allergy Intermediate I-HIVES Verified 09/10/22 10:20 Sulfa (Sulfonamide Allergy Intermediate I-RASH Verified 09/10/22 10:20 Antibiotics) [SULFA (SULFONAMIDE ANTIBIOTICS)] [facility] Disclaimer: The information contained in this section may have been updated after the patient was seen, as this information can be updated by other users. 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 caffeine: Yes ROS Obtained: Yes All systems reviewed & no additional complaints except as documented Constitutional Constitutional: Reports poor appetite Eyes Eyes: Reports system reviewed and no additional complaints, except as documented ENT Ears, Nose, Mouth, and Throat: Reports as per HPI Cardiovascular Cardiovascular: Reports system reviewed and no additional complaints, except as documented and Denies chest pain Respiratory Respiratory: Denies shortness of breath, Denies chest congestion, Reports cough, Denies stridor and Denies wheezing Gastrointestinal Gastrointestingal: Reports system reviewed and no additional complaints, except as documented; Denies abdominal pain, di
[2022-09-10 09:45] VITALS: BP 127/68; PULSE 80; RESP 20; TEMP 36.6; O2SAT 100; BMI 28.3
[2022-09-10 09:57] LABS: UTC Influenza A Antigen Negative (Negative); UTC Influenza B Antigen Negative (Negative)
[2022-09-10 10:43] VITALS: BP 127/68; PULSE 80; RESP 20; TEMP 36.6; O2SAT 100
== END 2022-09-10 10:42 | disposition home or self-care (01) ==
PROVIDERS: Emergency Provider Nurse Practitioner Family; PCP Internal Medicine Adolescent Medicine
DX: J32.9 Chronic sinusitis, unspecified (principal); J40 Bronchitis, not specified as acute or chronic
CPT/HCPCS: 87804; 99212; 99214; G0463

== ENCOUNTER 2022-10-29 08:04 | Emergency (ER) | payer BC, SELFPAY ==
[2022-10-29 08:15] VITALS: BP 122/73; PULSE 74; RESP 20; TEMP 36.7; O2SAT 97; BMI 26.9
--- NOTE | 2022-10-29 08:24 | EXP.UTC ---
Discharge Plan Disposition Patient Disposition: Home, Self-Care Condition: Good Prescriptions Prescriptions: New methylprednisolone [Medrol (Kalyan)] 4 mg tablets,dose pack See Rx Instructions .Route .COMPLEX 6 Days Qty: 21 0RF Rx Instructions: taper pack; amoxicillin-pot clavulanate 875-125 mg Tablet 1 tab PO Q12H Qty: 14 0RF benzonatate 100 mg capsule 100 mg PO TID PRN (Reason: cough) Qty: 30 0RF No Action fluticasone propion-salmeterol 28 PUFFS blister with device 1 inh IH BID levothyroxine 200 MCG capsule 200 mcg PO DAILY montelukast 10 mg tablet 10 mg PO DAILY metformin 500 mg tablet 500 mg PO DAILY Referrals Follow up/Referrals: Bryon Chandra MD [Primary Care Provider] - See instructions Activity Restrictions/Add. Instructions Additional Instructions/Restrictions: *Monitor Temp, Over the counter Motrin or Tylenol as directed/as needed Tylenol every 4 hours and Motrin every 6 hours (as long as your family doctor has told you that you can take it) for fever or pain. and straight to ER if unable to lower temp less than 101.0 after medication given *Warm salt water gargles may help to soothe the throat *Throat Lozenges? *Warm fluids like tea with honey may help to soothe the throat? *Sleep elevated *Humidifier/Vaporizer *Flonase 2 sprays in each nostril daily but be aware that it may take 2-3 days before you notice improvement *Bromfed may cause drowsiness. Know how it effects you (your child) before driving, caring for small child, or sending your child to school. Not other antihistamines/allergy medications while taking bromfed Your throat swab was sent for culture. Those results are typically sent to your primary care. Be sure to follow up in 2-3 days with your family doctor/primary care physician if no improvement so they can review those result and treat if necessary. If you don?t have a primary care doctor, I recommend you get one but in the mean time, you will have to return to a walk in clinic Follow up IMMEDIATELY for new or worsening symptoms or no Noticeable improvement over the next 48-72 hours. 911 for difficulty breathing or swallowing Clinical Impressions Clinical Impression: Sinusitis Stand Alone Forms Stand Alone Forms: Work/School Release Instructions Patient Instructions: DI for Sinusitis, Sinusitis Discharge ED Provider: [place]ina [place] [facility] [place] Stated complaint: Congestion, headache, ear pain Mode of Arrival: Ambulatory Source of Information: Patient Limitations: No Limitations Time Seen by Provider: 10/29/22 08:25 Description of Symptoms (Recalled from Triage Doc. by RN): runny nose, sinus presusure, ear pain, sore throat, cough, muscle aches, and fatigue HEENT Symptoms (Recalled from RN notes): Yes Resp Symptoms (Recalled from RN notes): No Skin Symptoms (Recalled from RN notes): No MS Symptoms (Recalled from RN notes): No Functional Status (Recalled from RN notes): n/a History of Present Illness Provider Complaint: Patient states that for about a week she has been having sinus pain and pressure, pressure in her ears and headache and yesterday she started feeling achy all over muscle aches and fatigue States that this morning her sinus pressure was worse so she came in to get checked Related Data Home Medications Medication Instructions Recorded Confirmed fluticasone 250 mcg-salmeterol 50 1 inh IH BID . 02/07/21 10/29/22 mcg/dose blistr powdr for inhalation levothyroxine 200 mcg capsule 200 mcg PO DAILY THYROID 02/07/21 10/29/22 montelukast 10 mg tablet 10 mg PO DAILY Asthma 08/26/22 10/29/22 metformin 500 mg tablet 500 mg PO DAILY . 10/29/22 10/29/22 Previous Rx's Medication Instructions Recorded amoxicillin 875 mg-potassium 1 tab PO Q12H #14 tabs 10/29/22 clavulanate 125 mg tablet benzonatate 100 mg capsule 100 mg PO TID PRN cough #30 caps 10/29/22 methylprednisolone 4 mg tablet
[2022-10-29 08:33] VITALS: BP 122/73; PULSE 74; RESP 20; TEMP 36.7; O2SAT 97
[2022-10-29 08:38] LABS: UTC Strep Screen (Rapid) Negative (Negative)
[2022-10-29 08:39] LABS: UTC Influenza A Antigen Negative (Negative); UTC Influenza B Antigen Negative (Negative)
== END 2022-10-29 08:46 | disposition home or self-care (01) ==
PROVIDERS: Emergency Provider Nurse Practitioner; PCP Internal Medicine Adolescent Medicine
DX: J01.90 Acute sinusitis, unspecified (principal); R53.83 Other fatigue; R05.1 Acute cough
CPT/HCPCS: 87804; 87880; 99212; 99214; G0463

== ENCOUNTER 2022-11-25 09:53 | Emergency (ER) | payer BC, SELFPAY ==
[2022-11-25 10:15] VITALS: BP 141/84; PULSE 77; RESP 21; TEMP 36.6; O2SAT 98; BMI 28.3
--- NOTE | 2022-11-25 10:37 | EXP.UTC ---
Discharge Plan Disposition Patient Disposition: Home, Self-Care Condition: Good Prescriptions Prescriptions: New azithromycin [Zithromax Z-Kalyan] 250 mg tablet See Rx Instructions .ROUTE .COMPLEX 5 Days Qty: 6 0RF Rx Instructions: For 250 mg dose pack: take 500 mg today (day 1), then 250 mg for 4 days (days 2-5) benzonatate 100 mg capsule 100 mg PO TID PRN (Reason: cough) Qty: 15 0RF methylprednisolone [Medrol (Kalyan)] 4 mg tablets,dose pack See Rx Instructions .Route .COMPLEX 6 Days Qty: 21 0RF Rx Instructions: taper pack; No Action fluticasone propion-salmeterol 28 PUFFS blister with device 1 inh IH BID levothyroxine 200 MCG capsule 200 mcg PO DAILY montelukast 10 mg tablet 10 mg PO DAILY metformin 500 mg tablet 500 mg PO DAILY Referrals Follow up/Referrals: Bryon Chandra MD [Primary Care Provider] - See instructions Activity Restrictions/Add. Instructions Additional Instructions/Restrictions: Start antibiotic today. Be sure to complete entire prescription even if feeling better Monitor temp. Tylenol every 4 hours as needed and / or ibuprofen every 6 hours as needed ( As long as your primary care physician has told you that it ok to take both. For fever/aches/pains ER if no less than 101 despite Tylenol or Motrin Humidifier/vaporizer or hot steamy shower Inhaler every 4-6 hours as needed like we discussed. If unsure how to use it, ask pharmacist to demonstrate how. Should help open airways and improve cough, wheezing, and shortness of breath Mucinex during the day for your cough and cough suppressant only at night. Be sure to drink lots of water. *Tessalon Perles will not cause drowsiness but use at bedtime to help stop cough so that you may get some rest. *Start steroid today. Helps with inflammation therefore, cough and wheezing. Follow directions on the package. Reviewed side effects. Patient reports taking them before. Follow up IMMEDIATELY for new or worsening of symptoms OR no noticeable improvement over the next 48-72 hours. 911 immediately for any life threatening symptoms such as chest pain or difficulty breathing Clinical Impressions Clinical Impression: Sinusitis, Bronchitis Stand Alone Forms Stand Alone Forms: Work/School Release Instructions Patient Instructions: DI for Sinusitis, Acute Bronchitis Discharge ED Provider: [facility] H[facility] General Stated complaint: wheezing, cough, fatigue Mode of Arrival: Ambulatory Source of Information: Patient Limitations: No Limitations Time Seen by Provider: 11/25/22 10:37 Description of Symptoms (Recalled from Triage Doc. by RN): chest congestion, fatigue, wheezing, back pain, muscle pain, and cough HEENT Symptoms (Recalled from RN notes): Yes Resp Symptoms (Recalled from RN notes): No Skin Symptoms (Recalled from RN notes): No MS Symptoms (Recalled from RN notes): No Functional Status (Recalled from RN notes): n/a History of Present Illness Provider Complaint: Patient states that on she had an asthma attack and since she is having chest congestion, cough, head congestion and drainage Wheezing on and off pain in ribs at times when she coughs States that today she was still having drainage and cough so she came in Related Data Home Medications Medication Instructions Recorded Confirmed fluticasone 250 mcg-salmeterol 50 1 inh IH BID . 02/07/21 11/25/22 mcg/dose blistr powdr for inhalation levothyroxine 200 mcg capsule 200 mcg PO DAILY THYROID 02/07/21 11/25/22 montelukast 10 mg tablet 10 mg PO DAILY Asthma 08/26/22 11/25/22 metformin 500 mg tablet 500 mg PO DAILY . 10/29/22 11/25/22 Previous Rx's Medication Instructions Recorded azithromycin 250 mg tablet See Rx Instructions PO .COMPLEX 5 11/25/22 (Zithromax Z-Kalyan) days #6 tabs benzonatate 100 mg capsule 100 mg PO TID PRN cough #15 caps 11/25/22 methyl
[2022-11-25 11:04] LABS: Apearance,Urine Clear (Clear); Color,Urine Yellow (Yellow); PH,Urine 5.5 (5.0-8.5); Specific Gravity, Urine 1.025 (1.005-1.030)
[2022-11-25 11:06] LABS: Bilirubin,Urine Negative (Negative); Blood, Urine Negative (Negative); Glucose,Urine (UA) Negative (Negative); Ketones,Urine Negative (Negative); Protein,Urine Negative (Negative); UTC Leukocyte Esterase,Urine Negative (Negative); UTC Nitrate,Urine Negative (Negative); Urobilinogen,Urine 0.2 EU/dl (0.2)
[2022-11-25 11:11] VITALS: BP 141/84; PULSE 77; RESP 20; TEMP 36.6; O2SAT 98
== END 2022-11-25 11:11 | disposition home or self-care (01) ==
PROVIDERS: Emergency Provider Nurse Practitioner; PCP Internal Medicine Adolescent Medicine
DX: J20.9 Acute bronchitis, unspecified (principal); J01.90 Acute sinusitis, unspecified
CPT/HCPCS: 81003; 99212; 99214; G0463

== ENCOUNTER 2022-12-03 11:23 | Emergency (ER) | payer BC, SELFPAY ==
[2022-12-03 11:24] VITALS: BP 117/71; PULSE 82; RESP 17; TEMP 36.8; O2SAT 100; BMI 26.5
--- NOTE | 2022-12-03 11:39 | EXP.UTC ---
Discharge Plan Disposition Patient Disposition: Home, Self-Care Condition: Good Prescriptions Prescriptions: New promethazine-DM 6.25-15 mg/5 mL Syrup 5 ml PO Q6H PRN (Reason: Cough) Qty: 240 0RF prednisone 10 mg tablet 10 mg PO DIRECTED 9 Days Qty: 21 0RF Rx Instructions: Take 4 tablets daily for 3 days, then take 2 tablets daily for 3 days, then take 1 tablet daily for 3 days, then stop. amoxicillin-pot clavulanate 875-125 mg Tablet 1 tab PO Q12H Qty: 20 0RF No Action fluticasone propion-salmeterol 28 PUFFS blister with device 1 inh IH BID levothyroxine 200 MCG capsule 200 mcg PO DAILY montelukast 10 mg tablet 10 mg PO DAILY metformin 500 mg tablet 500 mg PO DAILY azithromycin [Zithromax Z-Kalyan] 250 mg tablet See Rx Instructions .ROUTE .COMPLEX 5 Days Qty: 6 0RF Rx Instructions: For 250 mg dose pack: take 500 mg today (day 1), then 250 mg for 4 days (days 2-5) benzonatate 100 mg capsule 100 mg PO TID PRN (Reason: cough) Qty: 15 0RF methylprednisolone [Medrol (Kalyan)] 4 mg tablets,dose pack See Rx Instructions .Route .COMPLEX 6 Days Qty: 21 0RF Rx Instructions: taper pack; Referrals Follow up/Referrals: Bryon Chandra MD [Primary Care Provider] - See instructions Activity Restrictions/Add. Instructions Additional Instructions/Restrictions: Drink plenty of fluids. Take tylenol or ibuprofen for pain or fever. Take the medications as directed. Follow up with your regular doctor. GO TO THE ER FOR ANY WORSENING SYMPTOMS The cough medication (promethazine dm) will make you drowsy, so don't drive or operate heavy machinery after taking it. Clinical Impressions Clinical Impression: Asthma exacerbation Stand Alone Forms Stand Alone Forms: Work/School Release Instructions Patient Instructions: Asthma -- Adult, DI for Asthma -- Adult Discharge ED Provider: Srinivasan Lou [facility] General Stated complaint: chest congestion, cough, fatigue, BAÑUELOS Time Seen by Provider: 12/03/22 11:39 History of Present Illness Provider Complaint: She states that for the past 2 days she has developed worsening sinus and chest congestion. She has a history of asthma. She was treated with a z-pack last week. She states that she got better while on that, but since finishing it she has got back sick. She denies any shortness of breath. Related Data Home Medications Medication Instructions Recorded Confirmed fluticasone 250 mcg-salmeterol 50 1 inh IH BID . 02/07/21 11/25/22 mcg/dose blistr powdr for inhalation levothyroxine 200 mcg capsule 200 mcg PO DAILY THYROID 02/07/21 11/25/22 montelukast 10 mg tablet 10 mg PO DAILY Asthma 08/26/22 11/25/22 metformin 500 mg tablet 500 mg PO DAILY . 10/29/22 11/25/22 Previous Rx's Medication Instructions Recorded azithromycin 250 mg tablet See Rx Instructions PO .COMPLEX 5 11/25/22 (Zithromax Z-Kalyan) days #6 tabs benzonatate 100 mg capsule 100 mg PO TID PRN cough #15 caps 11/25/22 methylprednisolone 4 mg tablets in See Rx Instructions .Route 11/25/22 a dose pack (Medrol (Kalyan)) .COMPLEX 6 days #21 tabs amoxicillin 875 mg-potassium 1 tab PO Q12H #20 tabs 12/03/22 clavulanate 125 mg tablet prednisone 10 mg tablet 10 mg PO DIRECTED 9 days #21 12/03/22 tabs promethazine-DM 6.25 mg-15 mg/5 mL 5 ml PO Q6H PRN Cough #240 mL 12/03/22 oral syrup Allergies Allergy/AdvReac Type Severity Reaction Status Date / Time cefdinir [CEFDINIR] Allergy Intermediate I-HIVES Verified 11/25/22 10:30 Sulfa (Sulfonamide Allergy Intermediate I-RASH Verified 11/25/22 10:30 Antibiotics) [SULFA (SULFONAMIDE ANTIBIOTICS)] [facility] Disclaimer: The information contained in this section may have been updated after the patient was seen, as this information can be updated by other users. Medical History Asthma Diabetes mellitu
[2022-12-03 12:10] VITALS: BP 117/71; PULSE 82; RESP 17; TEMP 36.8; O2SAT 100
== END 2022-12-03 12:10 | disposition home or self-care (01) ==
PROVIDERS: Emergency Provider Nurse Practitioner Family; PCP Internal Medicine Adolescent Medicine
DX: J45.901 Unspecified asthma with (acute) exacerbation (principal); R53.83 Other fatigue; R51.9 Headache, unspecified; E11.9 Type 2 diabetes mellitus without complications; E03.9 Hypothyroidism, unspecified; Z79.84 Long term (current) use of oral hypoglycemic drugs
CPT/HCPCS: 99212; 99214; G0463

== ENCOUNTER 2023-01-07 08:11 | Emergency (ER) | payer BC, SELFPAY ==
[2023-01-07 08:15] VITALS: BP 131/78; PULSE 61; RESP 21; TEMP 37; O2SAT 98; BMI 30.7
--- NOTE | 2023-01-07 08:33 | EXP.UTC ---
Discharge Plan Disposition Patient Disposition: Home, Self-Care Condition: Good Prescriptions Prescriptions: New albuterol sulfate [Proventil HFA] 90 mcg/actuation HFA aerosol inhaler 1 - 2 inh inhalation Q4-6H PRN (Reason: shortness of breath or wheezing) Qty: 8.5 3RF prednisone [prednisone] 20 mg tablet 20 mg PO BID 5 Days Qty: 10 0RF No Action fluticasone propion-salmeterol 28 PUFFS blister with device 1 inh IH BID levothyroxine 200 MCG capsule 200 mcg PO DAILY montelukast 10 mg tablet 10 mg PO DAILY metformin 500 mg tablet 500 mg PO DAILY Referrals Follow up/Referrals: Bryon Chandra MD [Primary Care Provider] - See instructions Activity Restrictions/Add. Instructions Additional Instructions/Restrictions: Continue home nebulizer treatments Use rescue inhaler as prescribed Start oral steriods tomorrow Straight to ER if any worsening symptoms or difficulty breathing Clinical Impressions Clinical Impression: Asthma exacerbation Qualifiers: Asthma severity: unspecified severity Asthma persistence: unspecified Qualified Code(s): J45.901 - Unspecified asthma with (acute) exacerbation Instructions Patient Instructions: Tips for Controlling Your Asthma, Asthma -- Adult, Online Self-Management Program May Improve Asthma Control Discharge ED Provider: [place]ina Laughlin [facility] [place] General Stated complaint: SOA Mode of Arrival: Ambulatory Source of Information: Patient Limitations: No Limitations Time Seen by Provider: 01/07/23 08:33 Description of Symptoms (Recalled from Triage Doc. by RN): PATIENT C/O SOA, COUGH, AND WHEEZING THAT STARTED LAST WEEK HEENT Symptoms (Recalled from RN notes): No Resp Symptoms (Recalled from RN notes): Yes Skin Symptoms (Recalled from RN notes): No MS Symptoms (Recalled from RN notes): No Functional Status (Recalled from RN notes): WNL History of Present Illness Provider Complaint: Patient states that she has a hx of asthma and last week she had an asthma attack and had some prednisone that she had left over and she took those and it helped and she felt better States last night she had another asthma attack and is out of her rescue inhaler and didnt have any prednisone to take but she did do neb treatment and it got better but then this morning her wheezing returned so she came in Denies feeling ill denies fever, denies chest congestion Related Data Home Medications Medication Instructions Recorded Confirmed fluticasone 250 mcg-salmeterol 50 1 inh IH BID Asthma 02/07/21 01/07/23 mcg/dose blistr powdr for inhalation levothyroxine 200 mcg capsule 200 mcg PO DAILY THYROID 02/07/21 01/07/23 montelukast 10 mg tablet 10 mg PO DAILY Asthma 08/26/22 01/07/23 metformin 500 mg tablet 500 mg PO DAILY Diabetes 10/29/22 01/07/23 Previous Rx's Medication Instructions Recorded albuterol sulfate 90 mcg/actuation 1 - 2 inh inhalation Q4-6H PRN 01/07/23 aerosol inhaler (Proventil HFA) shortness of breath or wheezing #8.5 grams prednisone 20 mg tablet 20 mg PO BID 5 days #10 tabs 01/07/23 Allergies Allergy/AdvReac Type Severity Reaction Status Date / Time cefdinir [CEFDINIR] Allergy Intermediate I-HIVES Verified 11/25/22 10:30 Sulfa (Sulfonamide Allergy Intermediate I-RASH Verified 11/25/22 10:30 Antibiotics) [SULFA (SULFONAMIDE ANTIBIOTICS)] Worker's Comp Is this a Worker's Comp case?: No [facility] Disclaimer: The information contained in this section may have been updated after the patient was seen, as this information can be updated by other users. Medical History Asthma Diabetes mellitus, type 2 Thyroid disease Surgical History History of section History of cholecystectomy Social History Smoking Status: Unknown if ever smoked alcohol intake: never
[2023-01-07 08:40] VITALS: BP 131/78; PULSE 72; RESP 21; TEMP 37; O2SAT 100
[2023-01-07 09:10] VITALS: PULSE 77; O2SAT 99
== END 2023-01-07 08:35 | disposition home or self-care (01) ==
PROVIDERS: Emergency Provider Nurse Practitioner; PCP Internal Medicine Adolescent Medicine
DX: J45.901 Unspecified asthma with (acute) exacerbation (principal); E11.9 Type 2 diabetes mellitus without complications; E03.9 Hypothyroidism, unspecified; Z79.84 Long term (current) use of oral hypoglycemic drugs
CPT/HCPCS: 96372; 99212; 99214; G0463

== ENCOUNTER 2023-01-28 12:35 | Emergency (ER) | payer BC, SELFPAY ==
[2023-01-28 12:36] VITALS: BP 154/78; PULSE 77; RESP 18; TEMP 36.7; O2SAT 100; BMI 26.5
--- NOTE | 2023-01-28 12:48 | XR_ITS ---
FINAL REPORT CLINICAL HISTORY: sob COMPARISON: 10/29/2021 FINDINGS: Two views of the chest were obtained. The heart size and pulmonary vascularity are within normal limits. The mediastinum is normal. No acute pulmonary abnormality is identified. There is no pneumothorax. The bony thorax is intact. IMPRESSION: No active cardiopulmonary disease. Reviewed, Interpreted and Dictated by José Cao III, MD Transcribed by Mercedes Cooney Authenticated and [facility]
--- NOTE | 2023-01-28 12:55 | EXP.UTC ---
Discharge Plan Disposition Patient Disposition: Home, Self-Care Condition: Good Prescriptions Prescriptions: New benzonatate [benzonatate] 100 mg capsule 100 mg PO TIDP PRN (Reason: Cough) Qty: 30 0RF methylprednisolone 4 mg Tablets,Dose Pack 4 mg PO DIRECTED Qty: 21 0RF amoxicillin-pot clavulanate 875-125 mg Tablet 1 tab PO Q12H Qty: 20 0RF No Action fluticasone propion-salmeterol 28 PUFFS blister with device 1 inh IH BID levothyroxine 200 MCG capsule 200 mcg PO DAILY montelukast 10 mg tablet 10 mg PO DAILY metformin 500 mg tablet 500 mg PO DAILY albuterol sulfate [Proventil HFA] 90 mcg/actuation HFA aerosol inhaler 1 - 2 inh inhalation Q4-6H PRN (Reason: shortness of breath or wheezing) Qty: 8.5 3RF prednisone [prednisone] 20 mg tablet 20 mg PO BID 5 Days Qty: 10 0RF Referrals Follow up/Referrals: Bryon Chandra MD [Primary Care Provider] - See instructions Activity Restrictions/Add. Instructions Additional Instructions/Restrictions: Drink plenty of fluids. Take tylenol or ibuprofen for pain or fever. Take the medications as directed. Follow up with your regular doctor. GO TO THE ER FOR ANY WORSENING SYMPTOMS Clinical Impressions Clinical Impression: Sinusitis, Bronchitis Stand Alone Forms Stand Alone Forms: Work/School Release Instructions Patient Instructions: Sinusitis, DI for Sinusitis Discharge ED Provider: Srinivasan Lou [facility] General Stated complaint: Sinus pressure fatigue Mode of Arrival: Ambulatory Source of Information: Patient Limitations: No Limitations Time Seen by Provider: 01/28/23 12:45 HEENT Symptoms (Recalled from RN notes): Yes Resp Symptoms (Recalled from RN notes): Yes Skin Symptoms (Recalled from RN notes): No MS Symptoms (Recalled from RN notes): No Functional Status (Recalled from RN notes): wnl History of Present Illness Provider Complaint: Patietn reports fatigue, ear pain, headache, shortness of breath, cough and wheezing for 3-4 days. Related Data Home Medications Medication Instructions Recorded Confirmed fluticasone 250 mcg-salmeterol 50 1 inh IH BID Asthma 02/07/21 01/07/23 mcg/dose blistr powdr for inhalation levothyroxine 200 mcg capsule 200 mcg PO DAILY THYROID 02/07/21 01/07/23 montelukast 10 mg tablet 10 mg PO DAILY Asthma 08/26/22 01/07/23 metformin 500 mg tablet 500 mg PO DAILY Diabetes 10/29/22 01/07/23 Previous Rx's Medication Instructions Recorded albuterol sulfate 90 mcg/actuation 1 - 2 inh inhalation Q4-6H PRN 01/07/23 aerosol inhaler (Proventil HFA) shortness of breath or wheezing #8.5 grams prednisone 20 mg tablet 20 mg PO BID 5 days #10 tabs 01/07/23 amoxicillin 875 mg-potassium 1 tab PO Q12H #20 tabs 01/28/23 clavulanate 125 mg tablet benzonatate 100 mg capsule 100 mg PO TIDP PRN Cough #30 caps 01/28/23 methylprednisolone 4 mg tablets in 4 mg PO DIRECTED #21 tabs 01/28/23 a dose pack Allergies Allergy/AdvReac Type Severity Reaction Status Date / Time cefdinir [CEFDINIR] Allergy Intermediate I-HIVES Verified 11/25/22 10:30 Sulfa (Sulfonamide Allergy Intermediate I-RASH Verified 11/25/22 10:30 Antibiotics) [SULFA (SULFONAMIDE ANTIBIOTICS)] Worker's Comp Is this a Worker's Comp case?: No [facility] Disclaimer: The information contained in this section may have been updated after the patient was seen, as this information can be updated by other users. Medical History Asthma Diabetes mellitus, type 2 Thyroid disease Surgical History History of section History of cholecystectomy Social History Smoking Status: Unknown if ever smoked alcohol intake: never current occupational status: other Travel in the last 8 weeks: None household members: spouse
[2023-01-28 13:39] VITALS: BP 154/78; PULSE 77; RESP 18; TEMP 36.7; O2SAT 100
== END 2023-01-28 13:42 | disposition home or self-care (01) ==
PROVIDERS: Emergency Provider Nurse Practitioner Family; PCP Internal Medicine Adolescent Medicine
DX: J40 Bronchitis, not specified as acute or chronic (principal); J01.90 Acute sinusitis, unspecified; J45.909 Unspecified asthma, uncomplicated; E11.9 Type 2 diabetes mellitus without complications; E07.9 Disorder of thyroid, unspecified
CPT/HCPCS: 71046; 99212; 99214; G0463

== ENCOUNTER → 2023-02-17 14:17 | Outpatient (CLI) | payer BC, SELFPAY ==
[2023-02-17 21:15] LABS: Basophils # 0.1 K/mm3 (0-0.2); Basophils % 0.7 % (0.1-2.0); Eosinophils # 0.5 K/mm3 (0.0-0.4); Eosinophils % 5.1 % (0.1-12.0); Hematocrit 43.2 % (37.0-47.0); Hemoglobin 13.7 g/dL (12.2-16.2); Lymphocytes # 1.9 K/mm3 (0.7-4.5); Lymphocytes % 19.6 % (10-50); Mean Corpuscular HGB Conc 31.6 g/dL (31.8-35.4); Mean Corpuscular Volume 94.8 fl (81-99); Mean Platelet Volume 9.2 fl (7.4-10.4); Monocytes # 0.9 K/mm3 (0.1-1.0); Monocytes % 9.3 % (1.7-9.3); Neutrophils # 6.3 K/mm3 (1.8-7.8); Neutrophils % 65.3 % (37.0-80.0); Platelet Count 368 K/mm3 (142-424); Red Blood Count 4.56 M/mm3 (4.20-5.40); Red Cell Distribution Width 13.5 % (11.5-17.5); White Blood Count 9.6 K/mm3 (4.8-10.8)
[2023-02-17 21:23] LABS: Alanine Aminotransferase 52 U/L (12-78); Albumin Level 4.6 g/dl (3.5-5.0); Albumin/Globulin Ratio 1.7 (1.1-1.8); Alkaline Phosphatase 85 U/L (38-126); Anion Gap 14.2 mEq/L (5-15); Aspartate Amino Transferase 50 U/L (14-36); Bilirubin,Total 0.3 mg/dl (0.2-1.3); Blood Urea Nitrogen 13 mg/dl (7-17); Calcium 9.2 mg/dl (8.4-10.2); Carbon Dioxide 24 mmol/L (22.0-30.0); Chloride 105 mmol/L (98-107); Chol/HDL Ratio 2.5 (1-3.5); Cholesterol 260 mg/dl (140-200); Estimated Glomerular Filt Rate 61 ml/min (>60); GFR (African American) 74 ML/MIN (>60); Globulin 2.7 g/dL (1.3-3.2); Glucose 68 mg/dl (74-100); HDL Cholesterol 103 mg/dl (40-60); Potassium 4.2 mmoL/L (3.5-5.1); Sodium 139 mmol/L (136-145); Total Protein,Serum 7.3 g/dl (6.3-8.2); Triglycerides 214 mg/dl (30-150); VLDL Cholesterol 43 mg/dL (0-40)
[2023-02-17 21:34] LABS: Direct LDL Cholesterol 105.45 mg/dL (100-129)
[2023-02-17 21:39] LABS: 25-OH Vitamin D, Total 26.4 ng/mL (30-100); Hemoglobin A1C 5.5 % (4.0-6.0)
== END ==
PROVIDERS: PCP Student in an Organized Health Care Education/Training Program; Visit Provider Student in an Organized Health Care Education/Training Program
DX: E11.9 Type 2 diabetes mellitus without complications (principal); E55.9 Vitamin D deficiency, unspecified; M79.671 Pain in right foot; S99.921A Unspecified injury of right foot, initial encounter; Z13.220 Encounter for screening for lipoid disorders; Z13.29 Encounter for screening for other suspected endocrine disorder; Z79.84 Long term (current) use of oral hypoglycemic drugs
CPT/HCPCS: 80053; 80061; 82306; 83036; 84443; 85025

== ENCOUNTER → 2023-02-28 11:00 | Outpatient (CLI) | payer BC, SELFPAY ==
[2023-02-28 17:53] LABS: Basophils % 0.5 % (0.1-2.0); Eosinophils # 0.5 K/mm3 (0.0-0.4); Eosinophils % 5.3 % (0.1-12.0); Hematocrit 39.9 % (37.0-47.0); Lymphocytes # 2.1 K/mm3 (0.7-4.5); Lymphocytes % 24.2 % (10-50); Mean Corpuscular HGB Conc 32.6 g/dL (31.8-35.4); Mean Corpuscular Hemoglobin 30.4 pg (27.0-31.2); Mean Corpuscular Volume 93.4 fl (81-99); Mean Platelet Volume 8.6 fl (7.4-10.4); Monocytes # 0.6 K/mm3 (0.1-1.0); Monocytes % 7.2 % (1.7-9.3); Neutrophils # 5.4 K/mm3 (1.8-7.8); Neutrophils % 62.7 % (37.0-80.0); Platelet Count 383 K/mm3 (142-424); Red Blood Count 4.27 M/mm3 (4.20-5.40); Red Cell Distribution Width 13.5 % (11.5-17.5); White Blood Count 8.5 K/mm3 (4.8-10.8)
[2023-02-28 17:56] LABS: Anion Gap 9.8 mEq/L (5-15); Blood Urea Nitrogen 11 mg/dl (7-17); Carbon Dioxide 26 mmol/L (22.0-30.0); Chloride 106 mmol/L (98-107); Potassium 3.8 mmoL/L (3.5-5.1); Sodium 138 mmol/L (136-145)
[2023-02-28 17:57] LABS: Alanine Aminotransferase 53 U/L (12-78); Albumin Level 4.3 g/dl (3.5-5.0); Albumin/Globulin Ratio 1.6 (1.1-1.8); Alkaline Phosphatase 86 U/L (38-126); Aspartate Amino Transferase 51 U/L (14-36); Bilirubin,Total 0.5 mg/dl (0.2-1.3); Calcium 8.8 mg/dl (8.4-10.2); Estimated Glomerular Filt Rate 61 ml/min (>60); GFR (African American) 74 ML/MIN (>60); Globulin 2.7 g/dL (1.3-3.2); Glucose 89 mg/dl (74-100)
[2023-02-28 18:14] LABS: T4 (Thyroxine) 11.2 ug/dl (5.53-11.0); Triiodothryronine (T3) Uptake 36 % (23.5-40.5)
[2023-02-28 18:28] LABS: Thyroid Stimulating Hormone 2.24 uIU/mL (0.465-4.68)
== END ==
PROVIDERS: PCP Student in an Organized Health Care Education/Training Program; Visit Provider Student in an Organized Health Care Education/Training Program
DX: S99.921A Unspecified injury of right foot, initial encounter (principal); M79.671 Pain in right foot; E03.9 Hypothyroidism, unspecified; Z79.899 Other long term (current) drug therapy
CPT/HCPCS: 80053; 84436; 84443; 84479; 85025

== ENCOUNTER 2023-03-09 14:04 | Emergency (ER) | payer BC, SELFPAY ==
[2023-03-09 14:10] VITALS: BP 143/107; PULSE 93; RESP 20; TEMP 36.2; O2SAT 100; BMI 29.9
--- NOTE | 2023-03-09 14:37 | EXP.UTC ---
Discharge Plan Disposition Patient Disposition: Home, Self-Care Condition: Good Prescriptions Prescriptions: New prednisone [prednisone] 20 mg tablet 20 mg PO BID 5 Days Qty: 10 0RF No Action levothyroxine 200 mcg tablet 200 mcg PO DAILY levothyroxine 25 mcg capsule 25 mcg PO DAILY Qty: 30 1RF cholecalciferol (vitamin D3) 25 mcg (1,000 unit) capsule 25 mcg PO DAILY Qty: 30 2RF fluticasone propion-salmeterol 28 PUFFS blister with device 1 inh inhalation BID montelukast 10 mg tablet 10 mg PO DAILY metformin 500 mg tablet 500 mg PO DAILY albuterol sulfate [Proventil HFA] 90 mcg/actuation HFA aerosol inhaler 1 - 2 inh inhalation Q4-6H PRN (Reason: shortness of breath or wheezing) Qty: 8.5 3RF Referrals Follow up/Referrals: Bryon Chandra MD [Primary Care Provider] - See instructions Activity Restrictions/Add. Instructions Additional Instructions/Restrictions: Start oral steriods tomorrow Use your inhaler and nebulizer as you was prescribed Follow up with your Family Doctor if no improvement or worsening of symptoms Straight to ER if any life threatening symptoms Clinical Impressions Clinical Impression: Asthma exacerbation Qualifiers: Asthma severity: moderate Asthma persistence: unspecified Qualified Code(s): J45.901 - Unspecified asthma with (acute) exacerbation Instructions Patient Instructions: Asthma -- Adult, DI for Asthma -- Adult, Prednisone Discharge ED Provider: Catalina Laughlin [facility] General Stated complaint: soa Mode of Arrival: Ambulatory Source of Information: Patient Limitations: No Limitations Time Seen by Provider: 03/09/23 14:37 Description of Symptoms (Recalled from Triage Doc. by RN): PATIENT C/O SOA AND COUGH SINCE YESTERDAY HEENT Symptoms (Recalled from RN notes): No Resp Symptoms (Recalled from RN notes): Yes Skin Symptoms (Recalled from RN notes): No MS Symptoms (Recalled from RN notes): No Functional Status (Recalled from RN notes): WNL History of Present Illness Provider Complaint: Patient states that she has a history of asthma States that she has been coughing wheezing and feeling SOA at times States that today she wasnt feeling any better and still wheezing so she came in to get checked States that earlier this morning she coughed up some mucous Related Data Home Medications Medication Instructions Recorded Confirmed fluticasone 250 mcg-salmeterol 50 1 inh inhalation BID Asthma 02/07/21 02/28/23 mcg/dose blistr powdr for inhalation montelukast 10 mg tablet 10 mg PO DAILY Asthma 08/26/22 02/28/23 metformin 500 mg tablet 500 mg PO DAILY Diabetes 10/29/22 02/28/23 levothyroxine 200 mcg tablet 200 mcg PO DAILY 02/28/23 02/28/23 Previous Rx's Medication Instructions Recorded albuterol sulfate 90 mcg/actuation 1 - 2 inh inhalation Q4-6H PRN 01/07/23 aerosol inhaler (Proventil HFA) shortness of breath or wheezing #8.5 grams cholecalciferol (vitamin D3) 25 25 mcg PO DAILY #30 caps 02/28/23 mcg (1,000 unit) capsule levothyroxine 25 mcg capsule 25 mcg PO DAILY #30 caps 02/28/23 prednisone 20 mg tablet 20 mg PO BID 5 days #10 tabs 03/09/23 Allergies Allergy/AdvReac Type Severity Reaction Status Date / Time cefdinir [CEFDINIR] Allergy Intermediate I-HIVES Verified 02/28/23 14:08 Sulfa (Sulfonamide Allergy Intermediate I-RASH Verified 02/28/23 14:08 Antibiotics) [SULFA (SULFONAMIDE ANTIBIOTICS)] Worker's Comp Is this a Worker's Comp case?: No [facility] Disclaimer: The information contained in this section may have been updated after the patient was seen, as this information can be updated by other users. Medical History (Updated 03/09/23 @ 15:43 by Catalina Laughlin APRN) Asthma Diabetes mellitus, type 2 Thyroid disease Surgical History History of section History of cholecystectomy Social History (Reviewed 02/28/23 @ 14:
[2023-03-09 14:39] VITALS: BP 143/107; PULSE 93; RESP 20; TEMP 36.2; O2SAT 100
--- NOTE | 2023-03-09 14:52 | XR_ITS ---
PROCEDURE INFORMATION: Exam: XR Chest Exam date and time: 03/09/2023 2:50 PM Age: 42 years old Clinical indication: Cough; Additional info: Cough/congestion TECHNIQUE: Imaging protocol: Radiologic exam of the chest. Views: 2 views. COMPARISON: CR XR CHEST 2V 01/28/2023 1:02 PM FINDINGS: Lungs: Unremarkable. No consolidation. Pleural spaces: Unremarkable. No pleural effusion. No pneumothorax. Heart/Mediastinum: Unremarkable. No cardiomegaly. Bones/joints: Unremarkable. IMPRESSION: No acute findings.
== END 2023-03-09 15:48 | disposition home or self-care (01) ==
PROVIDERS: Emergency Provider Nurse Practitioner; PCP Internal Medicine Adolescent Medicine
DX: J45.901 Unspecified asthma with (acute) exacerbation (principal); R06.02 Shortness of breath; E11.9 Type 2 diabetes mellitus without complications; E03.9 Hypothyroidism, unspecified; Z79.84 Long term (current) use of oral hypoglycemic drugs
CPT/HCPCS: 71046; 96372; 99212; 99214; G0463

== ENCOUNTER → 2023-03-13 23:42 | Outpatient (CLI) | payer BC, SELFPAY ==
[2023-03-13 19:21] LABS: T4 (Thyroxine) 10.4 ug/dl (5.53-11.0); Triiodothryronine (T3) Uptake 38 % (23.5-40.5)
[2023-03-13 19:34] LABS: Thyroid Stimulating Hormone 0.24 uIU/mL (0.465-4.68)
== END ==
PROVIDERS: PCP Internal Medicine Adolescent Medicine; Visit Provider Student in an Organized Health Care Education/Training Program
DX: E03.9 Hypothyroidism, unspecified (principal)
CPT/HCPCS: 84436; 84443; 84479

== ENCOUNTER → 2023-03-27 07:52 | Outpatient (CLI) | payer BC, SELFPAY ==
--- NOTE | 2023-03-27 07:56 | US_ITS ---
FINAL REPORT TECHNIQUE: Real-time grayscale and color ultrasound of the thyroid was performed. CLINICAL HISTORY: Abnormal thyroid labs COMPARISON: None FINDINGS: The thyroid gland is markedly atrophic measuring 24 x 8 mm on the right and 12 x 3 mm on the left. The isthmus measures 2 mm. No mass or nodule identified. IMPRESSION: Markedly atrophic thyroid gland without evidence of mass. Reviewed, Interpreted and Dictated by Vargas Reich MD Transcribed by Jacqueline Dale Authenticated and [facility]
--- NOTE | 2023-03-27 07:56 | US_ITS ---
FINAL REPORT CLINICAL HISTORY: elevated liver enzymes COMPARISON: None FINDINGS: Sonographic images of the right upper quadrant were obtained. The pancreas is partially obscured.The liver has an unremarkable appearance. The gallbladder has been surgically resected. There is no evidence of biliary ductal dilatation.The common duct measures 4mm. Limited images of the right kidney are unremarkable. IMPRESSION: Prior cholecystectomy. Otherwise unremarkable right upper quadrant ultrasound. Reviewed, Interpreted and Dictated by Vargas Reich MD Transcribed by Mercedes Cooney Authenticated and [facility]
== END ==
LOC: RAD 07:53
PROVIDERS: PCP Internal Medicine Adolescent Medicine; Visit Provider Student in an Organized Health Care Education/Training Program
DX: R74.8 Abnormal levels of other serum enzymes (principal); R79.89 Other specified abnormal findings of blood chemistry
CPT/HCPCS: 76536; 76705

== ENCOUNTER 2023-04-07 11:15 | Emergency (ER) | payer BC, SELFPAY ==
--- NOTE | 2023-04-07 11:47 | EXP.UTC ---
Discharge Plan Disposition Patient Disposition: Home, Self-Care Condition: Good Prescriptions Prescriptions: New azithromycin [Zithromax] 250 mg tablet 250 mg PO UD DOSE PK Qty: 6 0RF Rx Instructions: Take two (2) tablets today, then one (1) tablet days #2 thru #5 methylprednisolone 4 mg Tablets,Dose Pack 4 mg PO DIRECTED Qty: 21 0RF albuterol sulfate [Ventolin HFA] 90 mcg/actuation HFA aerosol inhaler 2 puff inhalation Q6H PRN (Reason: shortness of breath or wheezing) Qty: 6.7 0RF ipratropium-albuterol 0.5 mg-3 mg(2.5 mg base)/3 mL solution for nebulization 3 ml inhalation QID PRN (Reason: wheezing) Qty: 90 2RF benzonatate 200 mg capsule 200 mg PO BID PRN (Reason: cough) Qty: 30 0RF No Action levothyroxine 200 mcg tablet 200 mcg PO DAILY cholecalciferol (vitamin D3) 25 mcg (1,000 unit) capsule 25 mcg PO DAILY Qty: 30 2RF fluticasone propion-salmeterol 28 PUFFS blister with device 1 inh inhalation BID montelukast 10 mg tablet 10 mg PO DAILY metformin 500 mg tablet 500 mg PO DAILY albuterol sulfate [Proventil HFA] 90 mcg/actuation HFA aerosol inhaler 1 - 2 inh inhalation Q4-6H PRN (Reason: shortness of breath or wheezing) Qty: 8.5 3RF prednisone [prednisone] 20 mg tablet 20 mg PO BID 5 Days Qty: 10 0RF Referrals Follow up/Referrals: Bryon Chandra MD [Primary Care Provider] - See instructions Activity Restrictions/Add. Instructions Additional Instructions/Restrictions: Drink plenty of fluids. Take tylenol or ibuprofen for pain or fever. Take the medications as directed. Follow up with your regular doctor. GO TO THE ER FOR ANY WORSENING SYMPTOMS Don't start the oral steroids until tomorrow, since you had the shot here today. Clinical Impressions Clinical Impression: Asthma exacerbation Stand Alone Forms Stand Alone Forms: Work/School Release Instructions Patient Instructions: DI for Asthma -- Adult Discharge ED Provider: Srinivasan Lou [facility] General Stated complaint: chest congestion, soa Time Seen by Provider: 04/07/23 11:47 History of Present Illness Provider Complaint: She states that for the past 2 days she has had worsening chest congestion, wheezing and sinus congestion. She has a history of asthma. Related Data Home Medications Medication Instructions Recorded Confirmed fluticasone 250 mcg-salmeterol 50 1 inh inhalation BID Asthma 02/07/21 03/13/23 mcg/dose blistr powdr for inhalation montelukast 10 mg tablet 10 mg PO DAILY Asthma 08/26/22 03/13/23 metformin 500 mg tablet 500 mg PO DAILY Diabetes 10/29/22 03/13/23 levothyroxine 200 mcg tablet 200 mcg PO DAILY 02/28/23 03/13/23 Previous Rx's Medication Instructions Recorded albuterol sulfate 90 mcg/actuation 1 - 2 inh inhalation Q4-6H PRN 01/07/23 aerosol inhaler (Proventil HFA) shortness of breath or wheezing #8.5 grams cholecalciferol (vitamin D3) 25 25 mcg PO DAILY #30 caps 02/28/23 mcg (1,000 unit) capsule prednisone 20 mg tablet 20 mg PO BID 5 days #10 tabs 03/09/23 albuterol sulfate 90 mcg/actuation 2 puff inhalation Q6H PRN 04/07/23 aerosol inhaler (Ventolin HFA) shortness of breath or wheezing #6.7 grams azithromycin 250 mg tablet 250 mg PO UD DOSE PK #6 tabs 04/07/23 (Zithromax) benzonatate 200 mg capsule 200 mg PO BID PRN cough #30 caps 04/07/23 ipratropium 0.5 mg-albuterol 3 mg 3 ml inhalation QID PRN wheezing 04/07/23 (2.5 mg base)/3 mL nebulization #90 mL soln methylprednisolone 4 mg tablets in 4 mg PO DIRECTED #21 tabs 04/07/23 a dose pack Allergies Allergy/AdvReac Type Severity Reaction Status Date / Time cefdinir [CEFDINIR] Allergy Intermediate I-HIVES Verified 04/07/23 12:00 Sulfa (Sulfonamide Allergy Intermediate I-RASH Verified 04/07/23 12:00 Antibiotics) [SULFA (SULFONAMIDE ANTIBIOTICS)] [facility] Disclaimer: The information contained in this section may hav
--- NOTE | 2023-04-07 11:49 | XR_ITS ---
PROCEDURE INFORMATION: Exam: XR Chest Exam date and time: 04/07/2023 11:59 AM Age: 43 years old Clinical indication: Cough; Additional info: Cough, congestion TECHNIQUE: Imaging protocol: Radiologic exam of the chest. Views: 2 views. COMPARISON: CR XR CHEST 2V 03/09/2023 2:50 PM FINDINGS: Lungs: Unremarkable. No consolidation. Pleural spaces: Unremarkable. No pleural effusion. No pneumothorax. Heart/Mediastinum: Unremarkable. No cardiomegaly. Bones/joints: Unremarkable. IMPRESSION: No acute findings.
[2023-04-07 11:51] VITALS: BP 141/90; PULSE 80; RESP 30; TEMP 36.7; O2SAT 100; BMI 27.2
[2023-04-07 12:00] VITALS: PULSE 76
[2023-04-07 12:42] VITALS: BP 141/90; PULSE 80; RESP 20; TEMP 36.7
== END 2023-04-07 12:50 | disposition home or self-care (01) ==
PROVIDERS: Emergency Provider Nurse Practitioner Family; PCP Internal Medicine Adolescent Medicine
DX: J45.901 Unspecified asthma with (acute) exacerbation (principal); E11.9 Type 2 diabetes mellitus without complications; E03.9 Hypothyroidism, unspecified; Z79.84 Long term (current) use of oral hypoglycemic drugs
CPT/HCPCS: 71046; 96374; 99212; 99214; G0463

== ENCOUNTER → 2023-05-13 08:00 | Outpatient (CLI) | payer BC, SELFPAY | PROVIDERS: PCP Student in an Organized Health Care Education/Training Program; Visit Provider Student in an Organized Health Care Education/Training Program | DX: R05.9 Cough, unspecified (principal) | CPT/HCPCS: 87635 ==

== ENCOUNTER 2023-07-18 08:24 | Emergency (ER) | payer BC, SELFPAY ==
[2023-07-18 08:35] VITALS: BP 129/88; PULSE 83; RESP 18; TEMP 36.4; O2SAT 97; BMI 29.7
--- NOTE | 2023-07-18 08:56 | EXP.UTC ---
Discharge Plan Disposition Patient Disposition: Home, Self-Care Condition: Good Prescriptions Prescriptions: New prednisone [prednisone] 20 mg tablet 20 mg PO BID 5 Days Qty: 10 0RF amoxicillin-pot clavulanate 875-125 mg Tablet 1 tab PO Q12H Qty: 20 0RF No Action cholecalciferol (vitamin D3) 25 mcg (1,000 unit) capsule 25 mcg PO DAILY Qty: 30 2RF levothyroxine 175 mcg capsule 175 mcg PO DAILY Qty: 30 2RF albuterol sulfate [Ventolin HFA] 90 mcg/actuation HFA aerosol inhaler 2 puff inhalation Q6H PRN (Reason: shortness of breath or wheezing) Qty: 6.7 3RF fluticasone propion-salmeterol 28 PUFFS blister with device 1 inh inhalation BID montelukast 10 mg tablet 10 mg PO DAILY metformin 500 mg tablet 500 mg PO DAILY albuterol sulfate [Proventil HFA] 90 mcg/actuation HFA aerosol inhaler 1 - 2 inh inhalation Q4-6H PRN (Reason: shortness of breath or wheezing) Qty: 8.5 3RF ipratropium-albuterol 0.5 mg-3 mg(2.5 mg base)/3 mL solution for nebulization 3 ml inhalation QID PRN (Reason: wheezing) Qty: 90 2RF Referrals Follow up/Referrals: Bryon Chandra MD [Primary Care Provider] - See instructions Activity Restrictions/Add. Instructions Additional Instructions/Restrictions: *Monitor Temp, Over the counter Motrin or Tylenol as directed/as needed Tylenol every 4 hours and Motrin every 6 hours (as long as your family doctor has told you that you can take it) for fever or pain. and straight to ER if unable to lower temp less than 101.0 after medication given *Warm salt water gargles may help to soothe the throat *Throat Lozenges? *Warm fluids like tea with honey may help to soothe the throat? *Sleep elevated *Humidifier/Vaporizer Take your medication as prescribed Start oral steriods tomorrow Follow up IMMEDIATELY for new or worsening symptoms or no Noticeable improvement over the next 48-72 hours. 911 for difficulty breathing or swallowing Clinical Impressions Clinical Impression: Sinusitis Instructions Patient Instructions: Sinusitis, DI for Sinusitis [place] [facility] [place] General Stated complaint: EAR ACHE AND SORE THROAT Mode of Arrival: Ambulatory Source of Information: Patient Limitations: No Limitations Time Seen by Provider: 07/18/23 08:58 Description of Symptoms (Recalled from Triage Doc. by RN): ear pain, sore throat, BAÑUELOS, wheezing, coughing, pain in right upper back when coughing, and fatigue HEENT Symptoms (Recalled from RN notes): Yes Resp Symptoms (Recalled from RN notes): No Skin Symptoms (Recalled from RN notes): No MS Symptoms (Recalled from RN notes): No Functional Status (Recalled from RN notes): n/a History of Present Illness Provider Complaint: Patient states that she has Asthma really bad and tries to come in before it gets too bad States that she has been having pain in her ears, sinus pain and pressure, Bañuelos, Wheezing on and off, cough, and pain in her back at times when she coughs hard States that she wanted to come in and get something before it got too bad Related Data Home Medications Medication Instructions Recorded Confirmed fluticasone 250 mcg-salmeterol 50 1 inh inhalation BID Asthma 02/07/21 07/18/23 mcg/dose blistr powdr for inhalation montelukast 10 mg tablet 10 mg PO DAILY Asthma 08/26/22 07/18/23 metformin 500 mg tablet 500 mg PO DAILY Diabetes 10/29/22 07/18/23 Previous Rx's Medication Instructions Recorded albuterol sulfate 90 mcg/actuation 1 - 2 inh inhalation Q4-6H PRN 01/07/23 aerosol inhaler (Proventil HFA) shortness of breath or wheezing #8.5 grams cholecalciferol (vitamin D3) 25 25 mcg PO DAILY #30 caps 02/28/23 mcg (1,000 unit) capsule ipratropium 0.5 mg-albuterol 3 mg 3 ml inhalation QID PRN wheezing 04/07/23 (2.5 mg base)/3 mL nebulization #90 mL soln levothyroxine 175 mcg capsule 175 mcg PO DAILY #30 caps 04/21/23 albuterol s
[2023-07-18 09:25] VITALS: BP 144/86; PULSE 78; RESP 18; TEMP 36.8; O2SAT 96
== END 2023-07-18 09:25 | disposition home or self-care (01) ==
PROVIDERS: Emergency Provider Nurse Practitioner; PCP Internal Medicine Adolescent Medicine
DX: J01.90 Acute sinusitis, unspecified (principal); H92.03 Otalgia, bilateral; R51.9 Headache, unspecified; R07.0 Pain in throat; R09.81 Nasal congestion; R05.9 Cough, unspecified; M54.6 Pain in thoracic spine; E11.9 Type 2 diabetes mellitus without complications; E03.9 Hypothyroidism, unspecified; J45.909 Unspecified asthma, uncomplicated; Z79.84 Long term (current) use of oral hypoglycemic drugs
CPT/HCPCS: 96372; 99212; 99214; G0463

== ENCOUNTER → 2023-07-25 14:53 | Outpatient (CLI) | payer BC, SELFPAY ==
[2023-07-25 16:47] LABS: Basophils # 0.1 K/mm3 (0-0.2); Basophils % 0.8 % (0.1-2.0); Eosinophils # 0.4 K/mm3 (0.0-0.4); Eosinophils % 3.6 % (0.1-12.0); Hematocrit 43.8 % (37.0-47.0); Hemoglobin 14.3 g/dL (12.2-16.2); Lymphocytes # 2.7 K/mm3 (0.7-4.5); Lymphocytes % 22.1 % (10-50); Mean Corpuscular HGB Conc 32.7 g/dL (31.8-35.4); Mean Corpuscular Hemoglobin 31.6 pg (27.0-31.2); Mean Corpuscular Volume 96.6 fl (81-99); Mean Platelet Volume 7.8 fl (7.4-10.4); Monocytes # 0.7 K/mm3 (0.1-1.0); Monocytes % 5.5 % (1.7-9.3); Neutrophils # 8.2 K/mm3 (1.8-7.8); Neutrophils % 68.2 % (37.0-80.0); Platelet Count 344 K/mm3 (142-424); Red Blood Count 4.53 M/mm3 (4.20-5.40); Red Cell Distribution Width 13.7 % (11.5-17.5); White Blood Count 12.1 K/mm3 (4.8-10.8)
[2023-07-25 17:19] LABS: Alanine Aminotransferase 56 U/L (12-78); Albumin Level 4.7 g/dl (3.5-5.0); Albumin/Globulin Ratio 1.6 (1.1-1.8); Alkaline Phosphatase 56 U/L (38-126); Anion Gap 11.1 mEq/L (5-15); Aspartate Amino Transferase 44 U/L (14-36); Bilirubin,Total 0.4 mg/dl (0.2-1.3); Blood Urea Nitrogen 14 mg/dl (7-17); Calcium 9.1 mg/dl (8.4-10.2); Carbon Dioxide 28 mmol/L (22.0-30.0); Chloride 101 mmol/L (98-107); Chol/HDL Ratio 2.8 (1-3.5); Cholesterol 224 mg/dl (140-200); Estimated Glomerular Filt Rate 54 ml/min (>60); GFR (African American) 66 ML/MIN (>60); Globulin 2.9 g/dL (1.3-3.2); Glucose 79 mg/dl (74-100); HDL Cholesterol 80 mg/dl (40-60); Potassium 4.1 mmoL/L (3.5-5.1); Sodium 136 mmol/L (136-145); Total Protein,Serum 7.6 g/dl (6.3-8.2); Triglycerides 234 mg/dl (30-150); VLDL Cholesterol 47 mg/dL (0-40)
[2023-07-25 17:25] LABS: C-Reactive Protein 1.8 mg/L (0-4)
[2023-07-25 17:30] LABS: Direct LDL Cholesterol 93.49 mg/dL (100-129)
[2023-07-25 17:37] LABS: Free T4 (Free Thyroxine) 0.48 ng/dl (0.78-2.19)
[2023-07-25 19:16] LABS: 25-OH Vitamin D, Total 29.7 ng/mL (30-100)
[2023-07-27 12:08] LABS: Thyroid Peroxidase Antibodies 22 IU/mL (0-34)
[2023-07-30 07:16] LABS: Thyroid Stimulating Immunoglob <0.10 IU/L (0.00-0.55)
[2023-07-31 04:41] LABS: D001-IgE D pteronyssinus <0.10 kU/L (Class 0); D002-IgE D farinae <0.10 kU/L (Class 0); E001-IgE Cat Dander 4.87 kU/L (Class IV); E072-IgE Mouse Urine 3.26 kU/L (Class III); G002-IgE Bermuda Grass <0.10 kU/L (Class 0); G006-IgE Timothy Grass 0.38 kU/L (Class I); I006-IgE Cockroach, German <0.10 kU/L (Class 0); Immunoglobulin E, Total 158 IU/mL (6-495); M001-IgE Penicillium chrysogen <0.10 kU/L (Class 0); M002-IgE Cladosporium herbarum <0.10 kU/L (Class 0); M003-IgE Aspergillus fumigatus <0.10 kU/L (Class 0); M006-IgE Alternaria alternata <0.10 kU/L (Class 0); T001-IgE Maple/Box Elder <0.10 kU/L (Class 0); T003-IgE Common Silver Birch <0.10 kU/L (Class 0); T006-IgE Cedar, Mountain <0.10 kU/L (Class 0); T007-IgE Oak, White <0.10 kU/L (Class 0); T008-IgE Elm, American <0.10 kU/L (Class 0); T010-IgE Walnut <0.10 kU/L (Class 0); T011-IgE Maple Leaf Sycamore <0.10 kU/L (Class 0); T014-IgE Cottonwood <0.10 kU/L (Class 0); T015-IgE Ash, White <0.10 kU/L (Class 0); T022-IgE Pecan, Hickory <0.10 kU/L (Class 0); T070-IgE White Mulberry <0.10 kU/L (Class 0); W001-IgE Ragweed, Short 5.49 kU/L (Class IV); W011-IgE Thistle, Russian <0.10 kU/L (Class 0); W014-IgE Pigweed, Common <0.10 kU/L (Class 0); W018-IgE Sheep Sorrel <0.10 kU/L (Class 0)
== END ==
LOC: LAB 14:54
PROVIDERS: Nurse Practitioner; Student in an Organized Health Care Education/Training Program; PCP Internal Medicine Adolescent Medicine; Visit Provider Internal Medicine Pulmonary Disease
DX: E03.9 Hypothyroidism, unspecified (principal); E55.9 Vitamin D deficiency, unspecified; J30.9 Allergic rhinitis, unspecified; R06.09 Other forms of dyspnea; Z68.30 Body mass index [BMI] 30.0-30.9, adult
CPT/HCPCS: 36415; 80053; 80061; 82306; 82785; 84439; 84443; 84445; 85025; 86003; 86140; 86376

== ENCOUNTER 2023-08-15 13:05 | Outpatient (CLI) | payer BC, SELFPAY ==
[2023-08-15 14:09] LABS: Erythrocyte Sedimentation Rate 21 mm/hr (0-20)
[2023-08-15 14:35] LABS: Triiodothryronine (T3) Uptake 35 % (23.5-40.5)
[2023-08-15 14:36] LABS: Free Thyroxine Index 3.5 ug/dL (5.93-13.13); T4 (Thyroxine) 10.1 ug/dl (5.53-11.0)
[2023-08-15 14:49] LABS: Thyroid Stimulating Hormone 4.61 uIU/mL (0.465-4.68)
[2023-08-18 08:40] LABS: Thyroid Peroxidase Antibodies 16 IU/mL (0-34)
[2023-08-18 14:10] LABS: Thyroglobulin Level 8.5 IU/mL (0.0-0.9)
== END 2023-08-15 23:59 ==
LOC: LAB 13:06
PROVIDERS: PCP Internal Medicine Adolescent Medicine; Visit Provider Internal Medicine Adolescent Medicine
DX: E03.9 Hypothyroidism, unspecified (principal)
CPT/HCPCS: 36415; 84436; 84443; 84479; 85651; 86376; 86800

== ENCOUNTER 2023-08-19 16:48 | Outpatient (CLI) | payer BC, SELFPAY ==
[2023-08-19 17:27] LABS: Basophils # 0.1 K/mm3 (0-0.2); Eosinophils # 0.2 K/mm3 (0.0-0.4); Eosinophils % 2.5 % (0.1-12.0); Hematocrit 46.1 % (37.0-47.0); Hemoglobin 14.9 g/dL (12.2-16.2); Lymphocytes # 1.8 K/mm3 (0.7-4.5); Lymphocytes % 21.6 % (10-50); Mean Corpuscular HGB Conc 32.3 g/dL (31.8-35.4); Mean Corpuscular Hemoglobin 31.9 pg (27.0-31.2); Mean Corpuscular Volume 98.8 fl (81-99); Mean Platelet Volume 8.2 fl (7.4-10.4); Monocytes # 0.6 K/mm3 (0.1-1.0); Monocytes % 7.1 % (1.7-9.3); Neutrophils # 5.6 K/mm3 (1.8-7.8); Neutrophils % 67.8 % (37.0-80.0); Platelet Count 346 K/mm3 (142-424); Red Blood Count 4.66 M/mm3 (4.20-5.40); Red Cell Distribution Width 13.5 % (11.5-17.5); White Blood Count 8.3 K/mm3 (4.8-10.8)
[2023-08-19 17:46] LABS: Alanine Aminotransferase 74 U/L (12-78); Albumin Level 4.7 g/dl (3.5-5.0); Albumin/Globulin Ratio 1.7 (1.1-1.8); Alkaline Phosphatase 48 U/L (38-126); Anion Gap 12.4 mEq/L (5-15); Aspartate Amino Transferase 47 U/L (14-36); Bilirubin,Total 0.5 mg/dl (0.2-1.3); Blood Urea Nitrogen 11 mg/dl (7-17); Calcium 9.4 mg/dl (8.4-10.2); Carbon Dioxide 27 mmol/L (22.0-30.0); Chloride 102 mmol/L (98-107); Estimated Glomerular Filt Rate 61 ml/min (>60); GFR (African American) 73 ML/MIN (>60); Globulin 2.8 g/dL (1.3-3.2); Glucose 99 mg/dl (74-100); Potassium 4.4 mmoL/L (3.5-5.1); Sodium 137 mmol/L (136-145); Total Protein,Serum 7.5 g/dl (6.3-8.2)
[2023-08-19 17:52] LABS: C-Reactive Protein 2.4 mg/L (0-4)
[2023-08-19 18:41] LABS: Erythrocyte Sedimentation Rate 14 mm/hr (0-20)
[2023-08-20 11:12] LABS: Anti-Centromere B Antibodies <0.2 AI (0.0-0.9); Anti-DNA (DS) Ab Qn 1 IU/mL (0-9); Anti-Jo-1 <0.2 AI (0.0-0.9); Anti-Smith Antibody <0.2 AI (0.0-0.9); Antichromatin Antibodies <0.2 AI (0.0-0.9); Antiscleroderma-70 Antibodies <0.2 AI (0.0-0.9); RNP Antibodies <0.2 AI (0.0-0.9); Sjogren's Anti-SS-A <0.2 AI (0.0-0.9); Sjogren's Anti-SS-B <0.2 AI (0.0-0.9)
== END 2023-08-19 23:59 ==
LOC: LAB 16:48
PROVIDERS: PCP Internal Medicine Adolescent Medicine; Visit Provider Internal Medicine Adolescent Medicine
DX: R10.11 Right upper quadrant pain (principal); M79.10 Myalgia, unspecified site; M12.9 Arthropathy, unspecified; M35.9 Systemic involvement of connective tissue, unspecified
CPT/HCPCS: 36415; 80053; 85025; 85651; 86140; 86225; 86235

== ENCOUNTER 2023-09-25 12:55 | Outpatient (CLI) | payer BC, SELFPAY ==
[2023-09-25 13:50] VITALS: PULSE 58; PULSE 64
[2023-09-25] MEDS: ALBUTEROL 0.083% 2.5 MG/3 ML NEB IH (13:50)
--- NOTE | 2023-09-25 14:19 | CT_ITS ---
FINAL REPORT CLINICAL HISTORY: .soa FINDINGS: CT CHEST HIGH RESOLUTION 1.[address] axial slices were performed through the chest at 10 mm intervals utilizing high-resolution protocol. Supine inspiration and expiration and prone inspiration high-resolution CT images were obtained.Coronal reformatted images were submitted. This study was performed with techniques to keep radiation doses as low as reasonably achievable (ALARA). Individualized dose reduction techniques using automated exposure control or adjustment of mA and/or kV according to the patient's size were employed. There is no axillary adenopathy. A calcified subcarinal lymph node is present. No other mediastinal mass or adenopathy is seen. Heart size is normal. There is no pericardial or pleural effusion. No suspicious infiltrate or nodule is identified on lung window images. There is no evidence of bronchiectasis or emphysema. There is no evidence of interstitial fibrosis. There is no evidence of air trapping. Limited images of the upper abdomen demonstrate postoperative changes from cholecystectomy. IMPRESSION: No evidence of interstitial fibrosis. Reviewed, Interpreted and Dictated by Vargas Reich MD Transcribed by Debbie Gonzales Authenticated and [facility]
== END 2023-09-25 23:59 ==
LOC: RT 12:55
PROVIDERS: PCP Internal Medicine Adolescent Medicine; Visit Provider Internal Medicine Pulmonary Disease
DX: R06.09 Other forms of dyspnea (principal); J84.9 Interstitial pulmonary disease, unspecified
CPT/HCPCS: 71250; 94060; 94618; 94640; 94726; 94729

== ENCOUNTER 2023-11-04 10:00 | Emergency (ER) | payer BC, SELFPAY ==
[2023-11-04 10:10] VITALS: BP 105/69; PULSE 77; RESP 18; TEMP 36.8; O2SAT 98; BMI 28.7
--- NOTE | 2023-11-04 10:26 | ED_ITS ---
Discharge Plan Disposition Patient Disposition: Home, Self-Care Condition: Good Prescriptions Prescriptions: New ipratropium-albuterol 0.5 mg-3 mg(2.5 mg base)/3 mL solution for nebulization 3 ml inhalation Q4H PRN (Reason: wheezing) Qty: 90 1RF methylprednisolone [Medrol (Kalyan)] 4 mg tablets,dose pack See Rx Instructions .ROUTE .COMPLEX 6 Days Qty: 21 0RF Rx Instructions: 4 mg orally ;Medrol dose taper kalyan doxycycline hyclate 100 mg capsule 100 mg PO BID 10 Days Qty: 20 0RF No Action fluticasone propion-salmeterol 500-50 mcg/dose blister with device 1 inh inhalation BID levalbuterol tartrate [Xopenex HFA] 45 mcg/actuation HFA aerosol inhaler 2 inh inhalation Q6H PRN (Reason: shortness of breath or wheezing) 90 Days Qty: 15 3RF fluticasone propionate [Flonase Allergy Relief] 50 mcg/actuation spray,suspension 2 spray intranasal DAILY 90 Days Qty: 16 2RF Rx Instructions: administer into each nostril fluticasone propion-salmeterol 500-50 mcg/dose blister with device 1 inh inhalation BID Qty: 60 3RF cholecalciferol (vitamin D3) 1,250 mcg (50,000 unit) capsule 1,250 mcg PO WEEKLY Qty: 14 0RF levothyroxine 175 mcg tablet See Rx Instructions .ROUTE .COMPLEX Qty: 30 4RF Dose Instruction: TAKE 1 TABLET BY MOUTH ONCE DAILY Rx Instructions: TAKE 1 TABLET BY MOUTH ONCE DAILY montelukast 10 mg tablet 10 mg PO DAILY metformin 500 mg tablet 500 mg PO DAILY albuterol sulfate [Proventil HFA] 90 mcg/actuation HFA aerosol inhaler 1 - 2 inh inhalation Q4-6H PRN (Reason: shortness of breath or wheezing) Qty: 8.5 3RF ipratropium-albuterol 0.5 mg-3 mg(2.5 mg base)/3 mL solution for nebulization 3 ml inhalation QID PRN (Reason: wheezing) Qty: 90 2RF Referrals Follow up/Referrals: Bryon Chandra MD [Primary Care Provider] - See instructions Clinical Impressions Clinical Impression: Sinusitis Qualifiers: Sinusitis location: pansinusitis Chronicity: acute Recurrence: not specified as recurrent Qualified Code(s): J01.40 - Acute pansinusitis, unspecified Asthma with exacerbation Qualifiers: Asthma severity: severe Asthma persistence: unspecified Qualified Code(s): J45.901 - Unspecified asthma with (acute) exacerbation Stand Alone Forms Stand Alone Forms: Work/School Release Instructions Patient Instructions: DI for Sinusitis Discharge ED Provider: Ruth Marin [facility] [place] HPI General Stated complaint: wheezing, sinus pressure, ear pain Mode of Arrival: Ambulatory Source of Information: Patient Limitations: No Limitations Time Seen by Provider: 11/04/23 10:07 Description of Symptoms (Recalled from Triage Doc. by RN): Pt's symptoms are sinus pressure, ear pain, fatigue, BAÑUELOS, and wheezing. HEENT Symptoms (Recalled from RN notes): Yes Resp Symptoms (Recalled from RN notes): No Skin Symptoms (Recalled from RN notes): No MS Symptoms (Recalled from RN notes): No Functional Status (Recalled from RN notes): n/a History of Present Illness Provider Complaint: Pt states that she has been wheezing, had sinus pressure, cough, ear pain, fatigue, and headache. She reports that she has had a lot of facial pain for the past 3-4 days. She states that she just did a neb treatment prior to coming to the [facility]. Related Data Home Medications Medication Instructions Recorded Confirmed montelukast 10 mg tablet 10 mg PO DAILY Asthma 08/26/22 09/25/23 metformin 500 mg tablet 500 mg PO DAILY Diabetes 10/29/22 09/25/23 fluticasone 500 mcg-salmeterol 50 1 inh inhalation BID 07/25/23 09/25/23 mcg/dose blistr powdr for inhalation Previous Rx's Medication Instructions Recorded albuterol sulfate 90 mcg/actuation 1 - 2 inh inhalation Q4-6H PRN 01/07/23 aerosol inhaler (Proventil HFA) shortness of breath or wheezing #8.5 grams ipratropium 0.5 mg-albuterol 3 mg 3 ml inhalation QID PRN wheezing 04/07/23 (2.5 mg base)/3 mL nebulization #90 mL soln fluticasone 500 mcg-salmeterol 50 1 inh inhalation BID #60 ea 07/25/23 mcg/dose blistr powdr for inhalation fluticasone propionate 50 2 spray intranasal DAILY 90 days 07/25/23 mcg/actuation nasal #16 grams spray,suspension (Flonase Allergy Relief) levalbuterol tartrate 45 2 inh inhalation Q6H PRN shortness 07/25/23 mcg/actuation aerosol inhaler of breath or wheezing 90 days #15 (Xopenex HFA) grams cholecalciferol (vitamin D3) 1,250 1,250 mcg PO WEEKLY #14 caps 07/29/23 mcg (50,000 unit) capsule levothyroxine 175 mcg tablet See Rx Instructions .Route 09/25/23 .COMPLEX #30 tabs doxycycline hyclate 100 mg capsule 100 mg PO BID 10 days #20 caps 11/04/23 ipratropium 0.5 mg-albuterol 3 mg 3 ml inhalation Q4H PRN wheezing 11/04/23 (2.5 mg base)/3 mL nebulization #90 mL soln methylprednisolone 4 mg tablets in See Rx Instructions .Route 11/04/23 a dose pack (Medrol (Kalyan)) .COMPLEX 6 days #21 tabs Allergies Allergy/AdvReac Type Severity Reaction Status Date / Time cefdinir [CEFDINIR] Allergy Intermediate I-HIVES Verified 09/25/23 14:54 Sulfa (Sulfonamide Allergy Intermediate I-RASH Verified 09/25/23 14:54 Antibiotics) [SULFA (SULFONAMIDE ANTIBIOTICS)] Worker's Comp Is this a Worker's Comp case?: No [facility] Disclaimer: The information contained in this section may have been updated after the patient was seen, as this information can be updated by other users. 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 caffeine: Yes ROS Obtained: Yes All systems reviewed & no additional complaints except as documented Constitutional Constitutional: Reports system reviewed and no additional complaints, except as documented, Reports headache(s) and Reports malaise Eyes Eyes: Reports system reviewed and no additional complaints, except as documented ENT Ears, Nose, Mouth, and Throat: Reports system reviewed and no additional complaints, except as documented, Reports otalgia, Reports facial pain, Reports headache(s), Reports nasal congestion, Reports sinus pain and Reports sinus pressure Cardiovascular Cardiovascular: Reports system reviewed and no additional complaints, except as documented Respiratory Respiratory: Reports system reviewed and no additional complaints, except as documented, Reports non-productive cough and Reports wheezing Comments: states that she had to do a neb treatment prior to coming to the [facility] due to wheezing. Gastrointestinal Gastrointestingal: Reports system reviewed and no additional complaints, except as documented Genitourinary Female Genitourinary: Reports system reviewed and no additional complaints, except as documented Musculoskeletal Musculoskeletal: Reports system reviewed and no additional complaints, except as documented Integumentary/Breasts Skin/Breast: Reports system reviewed and no additional complaints, except as documented Neurologic Neurologic: Reports system reviewed and no additional complaints, except as documented and Reports headache(s) Endocrine Endocrine: Reports system reviewed and no additional complaints, except as documented Hematologic/Lymphatic Henatologic/Lymphatic: Reports system reviewed and no additional complaints, except as documented Allergic/Immunologic Allergic/Immunologic: Reports system reviewed and no additional complaints, except as documented and Reports wheezing Physical Exam General General appearance: alert Comment: ill appearing Head Head exam: atraumatic and normocephalic Eye Eye exam: Present normal appearance Expanded ENT Exam External ear exam: Present normal external inspection Nose exam: Present sinus tenderness Nasal speculum exam: Bilateral: normal Mouth exam: Present normal external inspection Teeth exam: Present normal inspection Throat exam: Present normal inspection Neck Neck exam: Present normal inspection and tenderness Chest Chest inspection: Present normal inspection and symmetric chest wall rise Respiratory Respiratory exam: Present normal lung sounds bilaterally Cardiovascular Cardiovascular exam: Present regular rate and normal rhythm Abdominal Exam Abdominal exam: Present soft and normal bowel sounds Extremities Exam Extremities exam: Present normal inspection Back Exam Back exam: Present normal inspection Neurological Exam Neurological exam: Present alert and oriented X3 Psychiatric Psychiatric exam: Present normal affect and normal mood Skin Skin exam: Present warm, dry and intact Lymphatic Lymphatic Findings: no adenopathy Medical Decision Making Devonte Inquiry Pt receiving controlled substance: No Devonte was queried for this patient: No Vital Signs: 04/02/24 10:10 Temperature 98.3 F Temperature Source Oral Pulse Rate [Right Radial] 77 Respiratory Rate 18 Blood Pressure [Right Arm] 105/69 L Blood Pressure Mean [Right Arm] 81 Blood Pressure Source [Right Arm] Automatic Cuff Blood Pressure Position [Right Arm] Sitting 02 Sat by Pulse Oximetry 98 Oxygen Delivery Method Room Air
[2023-11-04 10:47] VITALS: BP 105/69; PULSE 77; RESP 18; TEMP 36.8; O2SAT 98
== END 2023-11-04 10:47 | disposition home or self-care (01) ==
PROVIDERS: Emergency Provider Nurse Practitioner Family; PCP Internal Medicine Adolescent Medicine
DX: J01.40 Acute pansinusitis, unspecified (principal); J45.901 Unspecified asthma with (acute) exacerbation; R51.9 Headache, unspecified; R05.9 Cough, unspecified; H92.03 Otalgia, bilateral; R53.83 Other fatigue; R09.81 Nasal congestion; E11.9 Type 2 diabetes mellitus without complications; E03.9 Hypothyroidism, unspecified; Z79.84 Long term (current) use of oral hypoglycemic drugs
CPT/HCPCS: 99212; 99214; G0463

== ENCOUNTER 2023-11-11 16:32 | Outpatient (CLI) | payer BC, SELFPAY ==
[2023-11-11 17:46] LABS: Free T4 (Free Thyroxine) 1.99 ng/dl (0.78-2.19)
[2023-11-11 17:58] LABS: Thyroid Stimulating Hormone < 0.02 uIU/mL (0.465-4.68)
== END 2023-11-11 23:59 ==
LOC: LAB 16:32
PROVIDERS: PCP Internal Medicine Adolescent Medicine; Visit Provider Physician Assistant
DX: E03.8 Other specified hypothyroidism (principal); E06.3 Autoimmune thyroiditis
CPT/HCPCS: 36415; 84439; 84443

== ENCOUNTER 2023-12-07 08:36 | Emergency (ER) | payer BC, SELFPAY ==
[2023-12-07 08:45] VITALS: BP 134/73; PULSE 82; RESP 18; TEMP 36.8; O2SAT 98; BMI 29.4
--- NOTE | 2023-12-07 08:52 | XR_ITS ---
PROCEDURE INFORMATION: Exam: XR Chest Exam date and time: 12/07/2023 9:24 AM Age: 43 years old Clinical indication: Cough and shortness of breath; Patient HX: HX of asthma, vapes per PT. TECHNIQUE: Imaging protocol: Radiologic exam of the chest. Views: 2 views. COMPARISON: CT HIGH RESOLUTION CHEST 25/09/2023 14:29 FINDINGS: Lungs: Unremarkable. No consolidation. Pleural spaces: Unremarkable. No pleural effusion. No pneumothorax. Heart/Mediastinum: Unremarkable. No cardiomegaly. Bones/joints: Unremarkable. Organs: Cholecystectomy IMPRESSION: No radiographic evidence of acute cardiopulmonary disease
[2023-12-07] MEDS: ALBUTEROL 0.083% 2.5 MG/3 ML NEB IH (08:55)
[2023-12-07] MEDS: DEXAMETHASONE 4MG/ML 1ML VIAL 4 MG IM (08:58)
--- NOTE | 2023-12-07 09:05 | ED_ITS ---
Discharge Plan Disposition Patient Disposition: Home, Self-Care Condition: Good Prescriptions Prescriptions: New prednisone 20 mg tablet 20 mg PO BID Qty: 10 0RF No Action levalbuterol tartrate [Xopenex HFA] 45 mcg/actuation HFA aerosol inhaler 2 inh inhalation Q6H PRN (Reason: shortness of breath or wheezing) 90 Days Qty: 15 3RF fluticasone propionate [Flonase Allergy Relief] 50 mcg/actuation spr ay,suspension 2 spray intranasal DAILY 90 Days Qty: 16 2RF Rx Instructions: administer into each nostril fluticasone propion-salmeterol 500-50 mcg/dose blister with device 1 inh inhalation BID Qty: 60 3RF cholecalciferol (vitamin D3) 1,250 mcg (50,000 unit) capsule 1,250 mcg PO WEEKLY Qty: 14 0RF levothyroxine 175 mcg tablet See Rx Instructions .ROUTE .COMPLEX Qty: 30 4RF Dose Instruction: TAKE 1 TABLET BY MOUTH ONCE DAILY Rx Instructions: TAKE 1 TABLET BY MOUTH ONCE DAILY montelukast 10 mg tablet 10 mg PO DAILY metformin 500 mg tablet 500 mg PO DAILY albuterol sulfate [Proventil HFA] 90 mcg/actuation HFA aerosol inhaler 1 - 2 inh inhalation Q4-6H PRN (Reason: shortness of breath or wheezing) Qty: 8.5 3RF ipratropium-albuterol 0.5 mg-3 mg(2.5 mg base)/3 mL solution for nebulization 3 ml inhalation Q4H PRN (Reason: wheezing) Qty: 90 1RF Referrals Follow up/Referrals: Bryon Chandra MD [Primary Care Provider] - See instructions Activity Restrictions/Add. Instructions Additional Instructions/Restrictions: Start antibiotic today. Be sure to complete entire prescription even if feeling better Tylenol and ibuprofen as needed for pain or fever Humidifier/vaporizer/hot steamy shower Follow-up with primary care tomorrow. Follow-up immediately in the ER of the [facility] [[email or web address]] for new or worsening symptoms or no noticeable improvement over the next 48-72 hours. Stop smoking Inhaler every 4-6 hours as needed. Should help open airways improved cough, wheezing, shortness of breath Start steroids tomorrow. Helps with inflammation therefore coughing and wheezing. Follow directions on package. Clinical Impressions Clinical Impression: Asthma exacerbation Instructions Patient Instructions: DI for Asthma -- Adult, Diet High in Fruits and Vegetables May Reduce Asthma Exacerbations Discharge ED Provider: Cookie ([facility] [email or web address]])[place] [facility] [place] General Stated complaint: soa coughing Mode of Arrival: Ambulatory Source of Information: Patient Limitations: No Limitations Time Seen by Provider: 12/07/23 09:05 Description of Symptoms (Recalled from Triage Doc. by RN): Pt's symptoms are SOB (98% on RA), and wheezing. HEENT Symptoms (Recalled from RN notes): Yes Resp Symptoms (Recalled from RN notes): Yes Skin Symptoms (Recalled from RN notes): No MS Symptoms (Recalled from RN notes): No Functional Status (Recalled from RN notes): n/a History of Present Illness Provider Complaint: 43 yr old female presents for soa, wheezing. Related Data Home Medications Medication Instructions Recorded Confirmed montelukast 10 mg tablet 10 mg PO DAILY Asthma 08/26/22 12/07/23 metformin 500 mg tablet 500 mg PO DAILY Diabetes 10/29/22 12/07/23 Previous Rx's Medication Instructions Recorded albuterol sulfate 90 mcg/actuation 1 - 2 inh inhalation Q4-6H PRN 01/07/23 aerosol inhaler (Proventil HFA) shortness of breath or wheezing #8.5 grams fluticasone 500 mcg-salmeterol 50 1 inh inhalation BID #60 ea 07/25/23 mcg/dose blistr powdr for inhalation fluticasone propionate 50 2 spray intranasal DAILY 90 days 07/25/23 mcg/actuation nasal #16 grams spray,suspension (Flonase Allergy Relief) levalbuterol tartrate 45 2 inh inhalation Q6H PRN shortness 07/25/23 mcg/actuation aerosol inhaler of breath or wheezing 90 days #15 (Xopenex HFA) grams cholecalciferol (vitamin D3) 1,250 1,250 mcg PO WEEKLY #14 caps 07/29/23 mcg (50,000 unit) capsule levothyroxine 175 mcg tablet See Rx Instructions .Route 09/25/23 .COMPLEX #30 tabs ipratropium 0.5 mg-albuterol 3 mg 3 ml inhalation Q4H PRN wheezing 11/04/23 (2.5 mg base)/3 mL nebulization #90 mL soln prednisone 20 mg tablet 20 mg PO BID #10 tabs 12/07/23 Allergies Allergy/AdvReac Type Severity Reaction Status Date / Time cefdinir [CEFDINIR] Allergy Intermediate I-HIVES Verified 12/07/23 08:51 Sulfa (Sulfonamide Allergy Intermediate I-RASH Verified 12/07/23 08:51 Antibiotics) [SULFA (SULFONAMIDE ANTIBIOTICS)] Worker's Comp Is this a Worker's Comp case?: No [facility] Disclaimer: The information contained in this section may have been updated after the patient was seen, as this information can be updated by other users. Medical History (Reviewed 12/07/23 @ 09:08 by Lawanda Gary ([facility] [[email or web address] MEDICAL CODING INSTRUCTOR) Allergic rhinitis Dyspnea on exertion Thyroid disease Diabetes mellitus, type 2 Asthma Surgical History (Reviewed 12/07/23 @ 09:08 by Lawanda Gary ([facility] [[email or web address] MEDICAL CODING INSTRUCTOR) History of cholecystectomy History of section Family History (Reviewed 12/07/23 @ 09:08 by Lawanda Gary ([facility] [[email or web address] MEDICAL CODING INSTRUCTOR) Diabetes Hypertension Stroke Social History (Reviewed 12/07/23 @ 09:08 by Lawanda Gary ([facility] [[email or web address] MEDICAL CODING INSTRUCTOR) Smoking Status: Never smoker alcohol intake: never current occupational status: other Travel in the last 8 weeks: None household members: spouse housing: house 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 caffeine: Yes ROS Obtained: Yes All systems reviewed & no additional complaints except as d ocumented Constitutional Constitutional: Reports system reviewed and no additional complaints, except as documented Eyes Eyes: Reports system reviewed and no additional complaints, except as documented ENT Ears, Nose, Mouth, and Throat: Reports system reviewed and no additional complaints, except as documented Cardiovascular Cardiovascular: Reports system reviewed and no additional complaints, except as documented Respiratory Respiratory: Reports system reviewed and no additional complaints, except as documented, Reports as per HPI, Reports cough and Reports wheezing Gastrointestinal Gastrointestingal: Reports system reviewed and no additional complaints, except as documented Musculoskeletal Musculoskeletal: Reports system reviewed and no additional complaints, except as documented Integumentary/Breasts Skin/Breast: Reports system reviewed and no additional complaints, except as documented Neurologic Neurologic: Reports system reviewed and no additional complaints, except as documented Endocrine Endocrine: Reports system reviewed and no additional complaints, except as documented Hematologic/Lymphatic Henatologic/Lymphatic: Reports system reviewed and no additional complaints, except as documented Allergic/Immunologic Allergic/Immunologic: Reports system reviewed and no additional complaints, except as documented and Reports wheezing Physical Exam General General appearance: alert and in no apparent distress Head Head exam: atraumatic Eye Eye exam: Present normal appearance and PERRL ENT ENT exam: Present normal exam, normal oropharynx, mucous membranes moist and TM's normal bilaterally Respiratory Respiratory exam: Present wheezes Expanded Respiratory Exam Location: Left: wheezes, Right: wheezes, Upper: wheezes and Lower: wheezes Cardiovascular Cardiovascular exam: Present regular rate Neurological Exam Neurological exam: Present alert and oriented X3 Skin Skin exam: Present warm and intact Medical Decision Making Medical Records Medical records reviewed: Yes I reviewed the patient's medical records. Devonte Inquiry Pt receiving controlled substance: No Devonte was queried for this patient: No Vital Signs: 12/07/23 08:45 Temperature 98.2 F Temperature Source Oral Pulse Rate [Right Radial] 82 Respiratory Rate 18 Blood Pressure [Right Arm] 134/73 Blood Pressure Mean [Right Arm] 93 Blood Pressure Source [Right Arm] Automatic Cuff Blood Pressure Position [Right Arm] Sitting 02 Sat by Pulse Oximetry 98 Oxygen Delivery Method Room Air Lab Data Lab results reviewed: Yes I reviewed the patient's lab results. Orders (Tests/Meds): ED MEDICATIONS Generic Name Dose Route Start Last Admin Trade Name Freq PRN Reason Stop Dose Admin Albuterol Sulfate 2.5 mg 12/07/23 08:53 12/07/23 08:55 Albuterol 0.083% 2.5 Mg/3 Ml Neb IH 12/07/23 08:54 2.5 mg ONCE ONE Administration Dexamethasone Sodium Phosphate 4 mg 12/07/23 08:53 12/07/23 08:58 Dexamethasone 4mg/Ml 1ml Vial IM 12/07/23 08:54 4 mg ONCE ONE Administration ORDERS Category Date Time Status Chest XR 2 view (NOT portable) [XR chest 2V] Stat Exams 12/07/23 08:52 Ordered Radiology Data #1: Image(s): Chest Image Reviewed: Yes I reviewed the patient's radiology results Preliminary Findings: Normal/NAD
[2023-12-07 09:54] VITALS: BP 134/73; PULSE 82; RESP 18; TEMP 36.8; O2SAT 98
== END 2023-12-07 09:54 | disposition home or self-care (01) ==
PROVIDERS: Emergency Provider Nurse Practitioner Family; PCP Internal Medicine Adolescent Medicine
DX: J45.901 Unspecified asthma with (acute) exacerbation (principal)
CPT/HCPCS: 71046; 96372; 99212; 99214; G0463

== ENCOUNTER 2024-03-01 10:40 | Outpatient (CLI) | payer BC, SELFPAY | END 2024-03-01 23:59 | disposition home or self-care (01) | LOC: LAB.DROPOF 03-02 10:42 | PROVIDERS: PCP Student in an Organized Health Care Education/Training Program; Visit Provider Student in an Organized Health Care Education/Training Program | DX: J06.9 Acute upper respiratory infection, unspecified (principal) | CPT/HCPCS: 87635 ==

== ENCOUNTER 2024-04-19 15:13 | Outpatient (CLI) | payer BC, SELFPAY ==
[2024-04-19 19:55] LABS: Alanine Aminotransferase 90 U/L (12-78); Albumin Level 4.1 g/dl (3.5-5.0); Albumin/Globulin Ratio 1.3 (1.1-1.8); Alkaline Phosphatase 51 U/L (38-126); Aspartate Amino Transferase 58 U/L (14-36); Bilirubin,Total 0.5 mg/dl (0.2-1.3); Blood Urea Nitrogen 10 mg/dl (7-17); Calcium 9.6 mg/dl (8.4-10.2); Carbon Dioxide 27 mmol/L (22.0-30.0); Chloride 103 mmol/L (98-107); Cholesterol 202 mg/dl (140-200); Estimated Glomerular Filt Rate 68 ml/min (>60); GFR (African American) 82 ML/MIN (>60); Globulin 3.1 g/dL (1.3-3.2); Glucose 94 mg/dl (74-100); HDL Cholesterol 67 mg/dl (40-60); Sodium 136 mmol/L (136-145); Total Protein,Serum 7.2 g/dl (6.3-8.2); Triglycerides 326 mg/dl (30-150); VLDL Cholesterol 65 mg/dL (0-40)
[2024-04-19 20:07] LABS: Free T4 (Free Thyroxine) 1.47 ng/dl (0.78-2.19)
[2024-04-19 20:08] LABS: Direct LDL Cholesterol 72.12 mg/dL (100-129)
[2024-04-19 20:28] LABS: Thyroid Stimulating Hormone < 0.02 uIU/mL (0.465-4.68)
[2024-04-19 20:30] LABS: Basophils # 0.1 K/mm3 (0-0.2); Basophils % 0.9 % (0.1-2.0); Eosinophils # 0.3 K/mm3 (0.0-0.4); Eosinophils % 3.1 % (0.1-12.0); Hematocrit 42.6 % (37.0-47.0); Hemoglobin 13.6 g/dL (12.2-16.2); Lymphocytes # 1.9 K/mm3 (0.7-4.5); Lymphocytes % 22.2 % (10-50); Mean Corpuscular HGB Conc 31.9 g/dL (31.8-35.4); Mean Corpuscular Hemoglobin 30.6 pg (27.0-31.2); Mean Corpuscular Volume 95.7 fl (81-99); Mean Platelet Volume 8.9 fl (7.4-10.4); Monocytes # 0.6 K/mm3 (0.1-1.0); Monocytes % 7.4 % (1.7-9.3); Neutrophils # 5.7 K/mm3 (1.8-7.8); Neutrophils % 66.3 % (37.0-80.0); Platelet Count 396 K/mm3 (142-424); Red Blood Count 4.45 M/mm3 (4.20-5.40); Red Cell Distribution Width 14.1 % (11.5-17.5); White Blood Count 8.6 K/mm3 (4.8-10.8)
[2024-04-19 22:07] LABS: Hemoglobin A1C 5.6 % (4.0-6.0)
== END 2024-04-19 23:59 | disposition home or self-care (01) ==
LOC: LAB.DROPOF 04-20 11:25
PROVIDERS: PCP Student in an Organized Health Care Education/Training Program; Visit Provider Student in an Organized Health Care Education/Training Program
DX: E03.9 Hypothyroidism, unspecified (principal); E11.9 Type 2 diabetes mellitus without complications; Z79.84 Long term (current) use of oral hypoglycemic drugs
CPT/HCPCS: 80050; 80053; 80061; 83036; 84439; 84443; 85025

== ENCOUNTER 2024-04-20 16:01 | Outpatient (CLI) | payer BC, SELFPAY ==
--- NOTE | 2024-04-20 16:04 | XR_ITS ---
FINAL REPORT CLINICAL HISTORY: R hip pain x1 year, no injury FINDINGS: Right hip Three views were obtained. There is no acute fracture or dislocation. The joint spaces appear normal. There is a questionable tiny 4 mm degenerative cyst in the mid acetabulum. No soft tissue abnormality is identified. IMPRESSION: Questionable tiny degenerative cyst in the acetabulum. Reviewed, Interpreted and Dictated by Vargas Reich MD Transcribed by Faby Temple Authenticated and [facility]
== END 2024-04-20 23:59 | disposition home or self-care (01) ==
LOC: RAD 16:02
PROVIDERS: PCP Student in an Organized Health Care Education/Training Program; Visit Provider Student in an Organized Health Care Education/Training Program
DX: M25.551 Pain in right hip (principal)
CPT/HCPCS: 73502

== ENCOUNTER 2024-05-02 08:01 | Emergency (ER) | payer BC, SELFPAY ==
[2024-05-02 08:20] VITALS: BP 136/87; PULSE 91; RESP 21; TEMP 36.4; O2SAT 97; BMI 29.1
--- NOTE | 2024-05-02 08:36 | EXP.UTC ---
Discharge Plan Disposition Patient Disposition: Home, Self-Care Condition: Good Prescriptions Prescriptions: New benzonatate 100 mg capsule 100 mg PO TID PRN (Reason: cough) Qty: 30 0RF methylprednisolone [Medrol (Kalyan)] 4 mg tablets,dose pack See Rx Instructions .Route .COMPLEX 6 Days Qty: 21 0RF Rx Instructions: taper pack; amoxicillin-pot clavulanate 875-125 mg Tablet 1 tab PO Q12H Qty: 20 0RF guaifenesin [Mucinex] 600 mg tablet extended release 12hr 1,200 mg PO BID PRN (Reason: cough) Qty: 20 0RF No Action (DME) blood-glucose meter [BlogCNuch Ultra2 Meter] [facility] [place] MISCELLANEOUS Patient Comments: CHECK FASTING BLOOD GLUCOSE AND NEEDED meloxicam 7.5 mg tablet 7.5 mg PO DAILY levothyroxine 100 mcg tablet 100 mcg PO DAILY levothyroxine 88 mcg tablet 88 mcg PO DAILY rosuvastatin 10 mg tablet 10 mg PO DAILY (DME) lancets [BlogCNuch Delica Plus Lancet] 30 gauge [facility] [place] MISCELLANEOUS Patient Comments: CHECK FASTING BLOOD GLUCOSE AND NEEDED Ozempic 0.25 mg or 0.5 mg (2 mg/3 mL) pen injector 0.25 mg SQ WEEKLY Patient Comments: INJECT 0.25 MG UNDER THE SKIN ONCE WEEKLY ON THE SAME DAY EACH WEEK FOR 4 WEEKS Referrals Follow up/Referrals: Ashley Vyas PA [Primary Care Provider] - See instructions Activity Restrictions/Add. Instructions Additional Instructions/Restrictions: Start antibiotic today. Be sure to complete entire prescription even if feeling better Monitor temp. Tylenol every 4 hours as needed and / or ibuprofen every 6 hours as needed ( As long as your primary care physician has told you that it ok to take both. For fever/aches/pains ER if no less than 101 despite Tylenol or Motrin Humidifier/vaporizer or hot steamy shower Inhaler every 4-6 hours as needed like we discussed. If unsure how to use it, ask pharmacist to demonstrate how. Should help open airways and improve cough, wheezing, and shortness of breath Mucinex during the day for your cough and cough suppressant only at night. Be sure to drink lots of water. Insurance may not cover a prescriptions for mucinex. Might be cheaper to get 400mg tablets and take 2 tablet in the morning, mid-day and evening with lots of water. *Start steroid today. Helps with inflammation therefore, cough and wheezing. Follow directions on the package. Reviewed side effects. Patient reports taking them before. Follow up IMMEDIATELY for new or worsening of symptoms OR no noticeable improvement over the next 48-72 hours. 911 immediately for any life threatening symptoms such as chest pain or difficulty breathing Clinical Impressions Clinical Impression: Sinusitis Instructions Patient Instructions: DI for Sinusitis, Sinusitis Print Language Print Language: [place]i Discharge ED [place]ina Laughlin [facility] [place] General Stated complaint: fever, bodyaches, weakness, ear pain Mode of Arrival: Ambulatory Source of Information: Patient Limitations: No Limitations Time Seen by Provider: 05/02/24 08:36 Description of Symptoms (Recalled from Triage Doc. by RN): PATIENT C/O FATIGUE, SINUS PRESSURE, EAR PAIN, HEADACHE, WHEEZING AND COUGH SINCE FRIDAY. PATIENT ALSO STATES SHE HAS HAD NASAL DRAINAGE X 2 WEEKS HEENT Symptoms (Recalled from RN notes): Yes Resp Symptoms (Recalled from RN notes): Yes Skin Symptoms (Recalled from RN notes): No MS Symptoms (Recalled from RN notes): No Functional Status (Recalled from RN notes): WNL History of Present Illness Provider Complaint: Patient states that she started a couple weeks ago with sinus congestion and drainage that has continued to get worse States now she is having sinus pain and pressure and pressure behind her eyes and in her ears Drainage in the back of her throat and she has a hx of asthma and it is starting to flare it up she woke up with some Wheezing this morning so she came in to get checked before it got worse Related Data Home Medications ?Medication ?Instructions ?Recorded ?Confirmed blood-glucose meter (OneTouch 05/02/24 05/02/24 Ultra2 Meter) lancets 30 gauge (OneTouch Delica 05/02/24 05/02/24 Plus Lancet) levothyroxine 100 mcg tablet 100 mcg PO DAILY 05/02/24 05/02/24 levothyroxine 88 mcg tablet 88 mcg PO DAILY 05/02/24 05/02/24 meloxicam 7.5 mg tablet 7.5 mg PO DAILY 05/02/24 05/02/24 rosuvastatin 10 mg tablet 10 mg PO DAILY 05/02/24 05/02/24 semaglutide 0.25 mg or 0.5 mg (2 0.25 mg SQ WEEKLY 05/02/24 05/02/24 mg/3 mL) subcutaneous pen injector (Ozempic) Previous Rx's ?Medication ?Instructions ?Recorded amoxicillin 875 mg-potassium 1 tab PO Q12H #20 tabs 05/02/24 clavulanate 125 mg tablet benzonatate 100 mg capsule 100 mg PO TID PRN cough #30 caps 05/02/24 guaifenesin 600 mg tablet, 1,200 mg (2 x 600 mg) PO BID PRN 05/02/24 extended release 12 hr (Mucinex) cough #20 tabs methylprednisolone 4 mg tablets in See Rx Instructions .Route 05/02/24 a dose pack (Medrol (Kalyan)) .COMPLEX 6 days #21 tabs Allergies Allergy/AdvReac Type Severity Reaction Status Date / Time cefdinir [CEFDINIR] Allergy Intermediate I-HIVES Verified 04/19/24 14:50 Sulfa (Sulfonamide Allergy Intermediate I-RASH Verified 04/19/24 14:50 Antibiotics) [SULFA (SULFONAMIDE ANTIBIOTICS)] Worker's Comp Is this a Worker's Comp case?: No [facility] Disclaimer: The information contained in this section may have been updated after the patient was seen, as this information can be updated by other users. 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 caffeine: Yes ROS Obtained: Yes All systems reviewed & no additional complaints except as documented and Yes Systems reviewed as appropriate & no additional complaints except as documented Constitutional Constitutional: Reports system reviewed and no additional complaints, except as documented, Reports as per HPI and Reports headache(s) ENT Ears, Nose, Mouth, and Throat: Reports system reviewed and no additional complaints, except as documented, Reports as per HPI, Reports otalgia, Reports headache(s), Reports sinus pain and Reports sinus pressure Cardiovascular Cardiovascular: Reports system reviewed and no additional complaints, except as documented and Reports as per HPI Respiratory Respiratory: Reports system reviewed and no additional complaints, except as documented, Reports as per HPI, Reports cough and Reports wheezing Gastrointestinal Gastrointestingal: Reports system reviewed and no additional complaints, except as documented and as per HPI Neurologic Neurologic: Reports headache(s) Allergic/Immunologic Allergic/Immunologic: Reports wheezing Physical Exam General General appearance: alert and in no apparent distress ENT ENT exam: Present mucous membranes moist Expanded ENT Exam TM/Canal exam: Bilateral TM: bulging Nose exam: Present sinus tenderness Throat exam: Present other (PND noted) Respiratory Respiratory exam: Present normal lung sounds bilaterally; Absent respiratory distress or wheezes Cardiovascular Cardiovascular exam: Present regular rate, normal rhythm and normal heart sounds Neurological Exam Neurological exam: Present alert, oriented X3 and normal gait Medical Decision Making Medical Records Screening: Per USPSTF and CDC recommendations, given the prevalence of disease in our region, it is our hospital?s policy to screen for HIV and viral Hepatitis for all patients aged 18 and over and those with ongoing risk factors. Devonte Inquiry Pt receiving controlled substance: No Devonte was queried for this patient: No Vital Signs: 05/02/24 08:20 Temperature 97.6 F Temperature Source Oral Pulse Rate [Left Brachial] 91 H Respiratory Rate 21 Blood Pressure [Left Arm] 136/87 Blood Pressure Mean [Left Arm] 103 Blood Pressure Source [Left Arm] Automatic Cuff Blood Pressure Position [Left Arm] Sitting 02 Sat by Pulse Oximetry 97 Oxygen Delivery Method Room Air Medical Decision Narrative: Patient states that she is allergic to Cefdnir but she can take Augmentin without reactions or complications
[2024-05-02 08:45] VITALS: BP 136/87; PULSE 91; RESP 21; TEMP 36.4; O2SAT 97
== END 2024-05-02 08:49 | disposition home or self-care (01) ==
PROVIDERS: Emergency Provider Nurse Practitioner; PCP Student in an Organized Health Care Education/Training Program
DX: J01.90 Acute sinusitis, unspecified (principal); H92.03 Otalgia, bilateral; R06.2 Wheezing
CPT/HCPCS: 99212; 99214; G0463

== ENCOUNTER 2024-05-07 10:59 | Outpatient (CLI) | payer BC, SELFPAY ==
[2024-05-07 18:21] LABS: Coronavirus 19, PCR Not Detected (NotDetected); Influenza A, PCR Not Detected (NotDetected); Influenza B, PCR Not Detected (NotDetected)
== END 2024-05-07 23:59 | disposition home or self-care (01) ==
LOC: LAB.DROPOF 05-10 11:00
PROVIDERS: PCP Student in an Organized Health Care Education/Training Program; Visit Provider Student in an Organized Health Care Education/Training Program
DX: R09.81 Nasal congestion (principal)
CPT/HCPCS: 87636

== ENCOUNTER 2024-06-27 09:00 | Emergency (ER) | payer BC, SELFPAY ==
[2024-06-27 09:15] VITALS: BP 121/64; PULSE 85; RESP 26; TEMP 37; O2SAT 100; BMI 28.1
--- NOTE | 2024-06-27 09:26 | ED_ITS ---
Discharge Plan Disposition Patient Disposition: Home, Self-Care Condition: Good Prescriptions Prescriptions: New azithromycin [Zithromax Z-Kalyan] 250 mg tablet See Rx Instructions .ROUTE .COMPLEX 5 Days Qty: 6 0RF Rx Instructions: For 250 mg dose pack: take 500 mg today (day 1), then 250 mg for 4 days (days 2-5) prednisone 20 mg tablet 20 mg PO BID 5 Days Qty: 10 0RF No Action fluticasone propion-salmeterol 250-50 mcg/dose blister with device 1 inh INHALATION DAILY levothyroxine 75 mcg tablet 75 mcg PO DAILY levothyroxine 100 mcg tablet 100 mcg PO DAILY Ozempic 0.25 mg or 0.5 mg (2 mg/3 mL) pen injector 0.25 mg SQ WEEKLY Patient Comments: ADMINISTER 0.5 MG UNDER THE SKIN WEEKLY (DME) blood-glucose meter [[employer] Ultra2 Meter] [facility] [place]ISCELLANEOUS Patient Comments: CHECK FASTING BLOOD GLUCOSE AND NEEDED (DME) lancets [Xcode Life SciencesTouch Delica Plus Lancet] 30 gauge [facility] [place] MISCELLANEOUS Patient Comments: CHECK FASTING BLOOD GLUCOSE AND NEEDED Referrals Follow up/Referrals: Ashley Vyas PA [Primary Care Provider] - See instructions Activity Restrictions/Add. Instructions Additional Instructions/Restrictions: * Start antibiotic today. Be sure to complete entire prescription even if feeling better * Monitor temp. Tylenol every 4 hours as needed and / or ibuprofen every 6 hours as needed ( As long as your primary care physician has told you that it ok to take both. For fever/aches/pains ER if no less than 101 despite Tylenol or Motrin * Humidifier/vaporizer or hot steamy shower * Inhaler every 4-6 hours as needed like we discussed. If unsure how to use it, ask pharmacist to demonstrate how. Should help open airways and improve cough, wheezing, and shortness of breath * Start Prednisone tomorrow. Helps with inflammation therefore, cough and wheezing. Follow directions on the package. Reviewed side effects. Patient reports taking them before. Follow up IMMEDIATELY for new or worsening of symptoms OR no noticeable improvement over the next 48-72 hours. 911 immediately for any life threatening symptoms such as chest pain or difficulty breathing Clinical Impressions Clinical Impression: Bronchitis Sinusitis Qualifiers: Sinusitis location: unspecified location Chronicity: unspecified Qualified Code(s): J32.9 - Chronic sinusitis, unspecified Instructions Patient Instructions: Acute Bronchitis, DI for Sinusitis Print Language Print Language: Irish Discharge ED Provider: [place]ina Laughlin [facility] [place] General Stated complaint: SOA, ear pain Mode of Arrival: Ambulatory Source of Information: Patient Limitations: No Limitations Time Seen by Provider: 06/27/24 09:27 Description of Symptoms (Recalled from Triage Doc. by RN): PATIENT C/O SOA, COUGH, HEADACHE, AND LUNGS BURNING X 2 DAYS AND EAR PAIN X 1 WEEK HEENT Symptoms (Recalled from RN notes): Yes Resp Symptoms (Recalled from RN notes): Yes Skin Symptoms (Recalled from RN notes): No MS Symptoms (Recalled from RN notes): No Functional Status (Recalled from RN notes): WNL History of Present Illness Provider Complaint: Patient states that she has a hx of asthma states that she has been having some wheezing on and off States that she has been having chest congestion, cough, sinus congestion and pressure and pain in her ears for about a week States that she took a duo neb just prior to arrival so she is breathing better now and not wheezing Related Data Home Medications ?Medication ?Instructions ?Recorded ?Confirmed blood-glucose meter (OneTouch 05/02/24 06/27/24 Ultra2 Meter) lancets 30 gauge (OneTouch Delica 05/02/24 06/27/24 Plus Lancet) fluticasone 250 mcg-salmeterol 50 1 inh inhalation DAILY 06/27/24 06/27/24 mcg/dose blistr powdr for inhalation levothyroxine 100 mcg tablet 100 mcg PO DAILY 06/27/24 06/27/24 levothyroxine 75 mcg tablet 75 mcg PO DAILY 06/27/24 06/27/24 semaglutide 0.25 mg or 0.5 mg (2 0.25 mg SQ WEEKLY 06/27/24 06/27/24 mg/3 mL) subcutaneous pen injector (Ozempic) Previous Rx's ?Medication ?Instructions ?Recorded azithromycin 250 mg tablet See Rx Instructions PO .COMPLEX 5 06/27/24 (Zithromax Z-Kalyan) days #6 tabs prednisone 20 mg tablet 20 mg PO BID 5 days #10 tabs 06/27/24 Allergies Allergy/AdvReac Type Severity Reaction Status Date / Time cefdinir (CEFDINIR) Allergy Intermediate I-HIVES Verified 05/07/24 11:01 Sulfa (Sulfonamide Allergy Intermediate I-RASH Verified 05/07/24 11:01 Antibiotics) (SULFA (SULFONAMIDE ANTIBIOTICS)) Worker's Comp Is this a Worker's Comp case?: No [facility] Disclaimer: The information contained in this section may have been updated after the patient was seen, as this information can be updated by other users. 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 caffeine: Yes ROS Obtained: Yes All systems reviewed & no additional complaints except as documented and Yes Systems reviewed as appropriate & no additional complaints except as documented Constitutional Constitutional: Reports system reviewed and no additional complaints, except as documented, Reports as per HPI and Reports headache(s) ENT Ears, Nose, Mouth, and Throat: Reports system reviewed and no additional complaints, except as documented, Reports as per HPI, Reports otalgia, Reports headache(s), Reports sinus pain and Reports sinus pressure Cardiovascular Cardiovascular: Reports system reviewed and no additional complaints, except as documented and Reports as per HPI Respiratory Respiratory: Reports system reviewed and no additional complaints, except as documented, Reports as per HPI, Reports shortness of breath, Reports chest congestion, Reports cough and Reports wheezing Gastrointestinal Gastrointestingal: Reports system reviewed and no additional complaints, except as documented and as per HPI Neurologic Neurologic: Reports headache(s) Allergic/Immunologic Allergic/Immunologic: Reports wheezing Physical Exam General General appearance: alert, in no apparent distress and anxious ENT ENT exam: Present mucous membranes moist Expanded ENT Exam TM/Canal exam: Bilateral TM: bulging Nose exam: Present sinus tenderness Throat exam: Present other (PND noted) Respiratory Respiratory exam: Present normal lung sounds bilaterally; Absent respiratory distress or wheezes Cardiovascular Cardiovascular exam: Present regular rate, normal rhythm and normal heart sounds Abdominal Exam Abdominal exam: Present soft and normal bowel sounds; Absent distention, tenderness or guarding Neurological Exam Neurological exam: Present alert, oriented X3 and normal gait Medical Decision Making Medical Records Screening: Per USPSTF and CDC recommendations, given the prevalence of disease in our region, it is our hospital?s policy to screen for HIV and viral Hepatitis for all patients aged 18 and over and those with ongoing risk factors. Devonte Inquiry Pt receiving controlled substance: No Devonte was queried for this patient: No Vital Signs: 06/27/24 09:15 Temperature 98.6 F Temperature Source Oral Pulse Rate [Left Brachial] 85 Respiratory Rate 26 H Blood Pressure [Left Arm] 121/64 Blood Pressure Mean [Left Arm] 83 Blood Pressure Source [Left Arm] Automatic Cuff Blood Pressure Position [Left Arm] Sitting 02 Sat by Pulse Oximetry 100 Oxygen Delivery Method Room Air Medical Decision Narrative: Patient now more relaxed and calm breathing rate now 18
[2024-06-27] MEDS: METHYLPREDNISOLONE SOD SUCC 125MG VIAL 125 MG IM (09:36)
[2024-06-27 09:50] VITALS: BP 121/64; PULSE 85; RESP 20; TEMP 37; O2SAT 100
== END 2024-06-27 09:54 | disposition home or self-care (01) ==
PROVIDERS: Emergency Provider Nurse Practitioner; PCP Student in an Organized Health Care Education/Training Program
DX: J32.9 Chronic sinusitis, unspecified (principal)
CPT/HCPCS: 96372; 99213; G0381; J2919

== ENCOUNTER 2024-08-12 15:50 | Outpatient (CLI) | payer BC, SELFPAY ==
[2024-08-12 18:58] LABS: Anion Gap 12.9 mEq/L (5-15); Blood Urea Nitrogen 9 mg/dl (7-17); Calcium 9.5 mg/dl (8.4-10.2); Carbon Dioxide 24 mmol/L (22.0-30.0); Chloride 103 mmol/L (98-107); Estimated Glomerular Filt Rate 68 ml/min (>60); GFR (African American) 82 ML/MIN (>60); Glucose 89 mg/dl (74-100); Magnesium 1.8 mg/dl (1.6-2.3); Potassium 3.9 mmoL/L (3.5-5.1); Sodium 136 mmol/L (136-145)
[2024-08-12 19:20] LABS: Free T4 (Free Thyroxine) 1.99 ng/dl (0.78-2.19)
[2024-08-12 19:21] LABS: 25-OH Vitamin D, Total 49.9 ng/mL (30-100)
[2024-08-12 19:47] LABS: Hemoglobin A1C 5.2 % (4.0-6.0)
[2024-08-12 19:53] LABS: Iron 65 ug/dL (37-170)
[2024-08-12 20:13] LABS: Total Iron Binding Capacity 375 ug/dL (265-497)
[2024-08-12 20:26] LABS: Thyroid Stimulating Hormone < 0.02 uIU/mL (0.465-4.68)
[2024-08-12 20:30] LABS: Ferritin 34.7 ng/ml (6.24-137)
[2024-08-12 20:37] LABS: HIV Combo NEGATIVE (Negative)
[2024-08-12 20:43] LABS: Hepatitis C Ab Qual. W/ RFX NEGATIVE (Negative)
[2024-08-12 21:47] LABS: Vitamin B12 526 pg/mL (239-931)
== END 2024-08-12 23:59 | disposition home or self-care (01) ==
LOC: LAB.DROPOF 08-13 10:38
PROVIDERS: PCP Student in an Organized Health Care Education/Training Program; Visit Provider Student in an Organized Health Care Education/Training Program
DX: Z11.59 Encounter for screening for other viral diseases (principal); Z11.4 Encounter for screening for human immunodeficiency virus [HIV]; E03.9 Hypothyroidism, unspecified; R25.2 Cramp and spasm; E55.9 Vitamin D deficiency, unspecified; E11.9 Type 2 diabetes mellitus without complications; Z79.85 Long-term (current) use of injectable non-insulin antidiabetic drugs; Z68.28 Body mass index [BMI] 28.0-28.9, adult; E66.3 Overweight
CPT/HCPCS: 80048; 82306; 82607; 82728; 83036; 83540; 83550; 83735; 84439; 84443; 86803; 87389

== ENCOUNTER 2024-09-15 11:22 | Outpatient (CLI) | payer BC, SELFPAY ==
[2024-09-15 13:15] LABS: Coronavirus 19, PCR Not Detected (NotDetected); Human Rhinovirus Not Detected (NotDetected); Influenza A, PCR Not Detected (NotDetected); Influenza B, PCR Not Detected (NotDetected); Respiratory Syncytial Virus Not Detected (NotDetected)
== END 2024-09-15 23:59 | disposition home or self-care (01) ==
LOC: LAB.DROPOF 09-16 13:09
PROVIDERS: PCP Nurse Practitioner Family; Visit Provider Nurse Practitioner Family
DX: R05.8 Other specified cough (principal); R51.9 Headache, unspecified; R11.0 Nausea
CPT/HCPCS: 87631

== ENCOUNTER 2024-09-22 16:49 | Outpatient (CLI) | payer BC, SELFPAY ==
--- NOTE | 2024-09-22 16:50 | MM_ITS ---
PROCEDURE INFORMATION: Exam: MG Bilateral Screening 3D Mammography Exam date and time: 09/22/2024 4:52 PM Age: 44 years old Clinical indication: Screening examination TECHNIQUE: Imaging protocol: Bilateral Screening tomosynthesis and 2D mammography including computer-aided detection (CAD) when performed. COMPARISON: No relevant prior studies available. FINDINGS: MAMMOGRAPHY: Breast composition: There are scattered areas of fibroglandular density. Mass: None. Architectural distortion: None. Calcifications: No suspicious calcifications. Asymmetric density: None. Skin thickening: None. Axillary adenopathy: None. IMPRESSION: No mammographic evidence of malignancy. Annual screening is recommended unless otherwise clinically indicated. ASSESSMENT: BI-RADS Category 1: Negative.
== END 2024-09-22 23:59 | disposition home or self-care (01) ==
LOC: RAD 16:50
PROVIDERS: PCP Nurse Practitioner Family; Visit Provider Nurse Practitioner Family
DX: Z12.31 Encounter for screening mammogram for malignant neoplasm of breast (principal)
CPT/HCPCS: 77063; 77067

== ENCOUNTER 2024-12-07 10:53 | Outpatient (CLI) | payer BC, SELFPAY ==
--- NOTE | 2024-12-07 10:55 | XR_ITS ---
FINAL REPORT CLINICAL HISTORY: cough 3 months FINDINGS: PA and lateral views of the chest are obtained. There is no prior exam for comparison. The cardiac and mediastinal silhouettes are within normal limits. The lungs are clear. There is no pleural effusion, pneumothorax, or acute osseous abnormality. IMPRESSION: No radiographic evidence of acute cardiac or pulmonary disease. Reviewed, Interpreted and Dictated by Callie Jarvis MD Transcribed by Jacqueline Dale Authenticated and [facility]
== END 2024-12-07 23:59 ==
LOC: RAD 10:54
PROVIDERS: PCP Nurse Practitioner Family; Visit Provider Student in an Organized Health Care Education/Training Program
DX: R05.3 Chronic cough (principal)
CPT/HCPCS: 71046

== ENCOUNTER 2025-01-13 12:50 | Outpatient (CLI) | payer BC, SELFPAY ==
[2025-01-14 16:18] LABS: H. pylori Breath Test Negative (Negative)
== END 2025-01-13 23:59 | disposition home or self-care (01) ==
LOC: LAB 12:51
PROVIDERS: PCP Nurse Practitioner Family; Visit Provider Nurse Practitioner
DX: R11.10 Vomiting, unspecified (principal); R11.0 Nausea
CPT/HCPCS: 83013

== ENCOUNTER 2025-01-19 16:24 | Outpatient (CLI) | payer BC, SELFPAY ==
[2025-01-19 11:15] LABS: Microscopic, Urine URINE MICROSCOPIC (MICROSCOPIC)
[2025-01-19 12:20] LABS: Basophils % 0.3 % (0.1-2.0); Eosinophils # 0.2 Kmm3 (0.0-0.4); Eosinophils % 1.9 % (0.1-12.0); Hematocrit 42.7 % (37.0-47.0); Hemoglobin 14.1 g/dL (12.2-16.2); Immature Granulocytes # 0.02 10^3uL; Immature Granulocytes % 0.2 %; Lymphocytes # 1.7 K/mm3 (0.7-4.5); Lymphocytes % 19.7 % (10-50); Mean Corpuscular Hemoglobin 29.3 pg (27.0-31.2); Mean Corpuscular Volume 88.8 fl (81-99); Mean Platelet Volume 10.4 fl (7.4-10.4); Monocytes # 0.6 K/mm3 (0.1-1.0); Monocytes % 6.8 % (1.7-9.3); Neutrophils # 6.1 K/mm3 (1.8-7.8); Neutrophils % 71.1 % (37.0-80.0); Nucleated Red Blood Cells # 0 10^3/uL; Nucleated Red Blood Cells % 0 %; Platelet Count 439 K/mm3 (142-424); Red Blood Count 4.81 M/mm3 (4.20-5.40); Red Cell Distribution Width 12.7 % (11.5-17.5); Red Cell Distribution Width-SD 41.6 fL; White Blood Count 8.6 K/mm3 (4.8-10.8)
[2025-01-19 12:32] LABS: Appearance,Urine CLEAR (Clear); Bilirubin,Urine Negative (Negative); Blood, Urine Negative (Negative); Color,Urine YELLOW (Yellow); Glucose,Urine (UA) Negative (Negative); Ketones,Urine Negative (Negative); Leukocyte Esterase,Urine Negative (Negative); Nitrate,Urine Negative (Negative); Protein,Urine Negative (Negative); Urobilinogen,Urine 0.2 EU/dl (0.2)
[2025-01-19 12:43] LABS: Bacteria,Urine 1+ /lpf; WBC,Urine Occasional #/hpf (0-3)
[2025-01-19 12:49] LABS: Alanine Aminotransferase 48 U/L (12-78); Albumin Level 4.7 g/dl (3.5-5.0); Albumin/Globulin Ratio 1.5 (1.1-1.8); Alkaline Phosphatase 72 U/L (38-126); Amylase 49 U/L (30-110); Anion Gap 10.4 mEq/L (5-15); Aspartate Amino Transferase 43 U/L (14-36); Bilirubin,Total 0.8 mg/dl (0.2-1.3); Blood Urea Nitrogen 8 mg/dl (7-17); Calcium 10.3 mg/dl (8.4-10.2); Carbon Dioxide 27 mmol/L (22.0-30.0); Chloride 103 mmol/L (98-107); Chol/HDL Ratio 2.2 (1-3.5); Cholesterol 115 mg/dl (140-200); Estimated Glomerular Filt Rate 78 ml/min (>60); GFR (African American) 94 ML/MIN (>60); Globulin 3.2 g/dL (1.3-3.2); Glucose 98 mg/dl (74-100); HDL Cholesterol 52 mg/dl (40-60); Lipase 149 U/L (23-300); Potassium 4.4 mmoL/L (3.5-5.1); Sodium 136 mmol/L (136-145); Total Protein,Serum 7.9 g/dl (6.3-8.2); Triglycerides 66 mg/dl (30-150); VLDL Cholesterol 13 mg/dL (0-40)
[2025-01-19 12:51] LABS: Erythrocyte Sedimentation Rate 21 mm/hr (0-20); Microalbumin/Creatinine Ratio 7.6
[2025-01-19 12:52] LABS: Creatinine,Urine Random 80 mg/dL (Not Estab.)
[2025-01-19 13:00] LABS: C-Reactive Protein 12.4 mg/L (0-4); Direct LDL Cholesterol 36.71 mg/dL (100-129)
[2025-01-19 13:06] LABS: Free T4 (Free Thyroxine) 2.56 ng/dl (0.78-2.19)
[2025-01-19 13:08] LABS: 25-OH Vitamin D, Total 66.3 ng/mL (30-100)
[2025-01-19 13:11] LABS: Hemoglobin A1C 4.9 % (4.0-6.0)
[2025-01-19 13:21] LABS: Thyroid Stimulating Hormone < 0.02 uIU/mL (0.465-4.68)
== END 2025-01-19 23:59 | disposition home or self-care (01) ==
LOC: LAB.DROPOF 16:24
PROVIDERS: PCP Nurse Practitioner Family; Visit Provider Nurse Practitioner Family
DX: E03.9 Hypothyroidism, unspecified (principal); E78.5 Hyperlipidemia, unspecified; B35.3 Tinea pedis; E11.9 Type 2 diabetes mellitus without complications; G47.33 Obstructive sleep apnea (adult) (pediatric); I10 Essential (primary) hypertension; R11.2 Nausea with vomiting, unspecified; R41.3 Other amnesia
CPT/HCPCS: 80053; 80061; 81001; 82043; 82150; 82306; 82570; 83036; 83690; 84439; 84443; 85025; 85651; 86140; 87086

== ENCOUNTER 2025-02-15 15:06 | Outpatient (CLI) | payer BC, SELFPAY ==
[2025-02-15 15:04] LABS: Free T4 (Free Thyroxine) 1.14 ng/dl (0.78-2.19)
[2025-02-15 15:19] LABS: Thyroid Stimulating Hormone 0.07 uIU/mL (0.465-4.68)
== END 2025-02-15 23:59 | disposition home or self-care (01) ==
LOC: LAB.DROPOF 15:06
PROVIDERS: PCP Nurse Practitioner Family; Visit Provider Nurse Practitioner Family
DX: E03.9 Hypothyroidism, unspecified (principal); G47.33 Obstructive sleep apnea (adult) (pediatric)
CPT/HCPCS: 84439; 84443

== ENCOUNTER 2025-03-18 15:52 | Outpatient (CLI) | payer BC, SELFPAY ==
--- OUTSIDE RECORDS SUMMARY | 2024-11-06 17:30 | XMS_ITS ---
Author Organization [facility] Address [address] [facility] 36 [facility] [address] [place] [address] Care Team Providers Care Transfer Worker Name Role Phone Bryon Chandra Primary Care Provider [phone] Bryon Chandra Unavailable Unavailable Migration, Provider Unavailable Unavailable Allergies Allergen (clinical drug ingredient) Drug/Non Drug Allergy documented on EMR Reaction Allergy Type Onset Date Status SULFA (uncoded) hives Allergy Acti ve cefdinir Cefdinir hives Drug Allergy Active [facility] Encounter Medications Medication SIG (Take, [...] Active Encounters Encounter Location Date Provider Diagnosis [facility] PED NATALIE [address] [place] [address] 11/06/2024 Provider Migration Myalgia M79.10 Assessments Encounter Date Diagnosis (ICD Code) Assessment Notes Treatment Notes Treatment Clinical Notes Section Notes 11/06/2024 Myalgia (ICD-10 - M79.10) Plan Of Treatment Medication Medication Name Sig Start Date Stop Date Notes predniSONE 20 MG 1 tab(s) orally once a day; Duration: 7 days 08/19/2023 Progress Notes * Azalia MCALLISTERDOB:1980 ( 45 yo F)Acc No.[id number]:11/06/2024 Patient: Azalia BAEZ Provider: Thuy mayes Migration :1980 A ge:44 Y S ex:Female Date:11/06/2024 Address:[address] [place] [address] [id number] Pcp:Bryon Chandra Subjective: * Chief Complaints: * [...] *Please review and pick correct strength-formulation from [employer] options. If intended option is not shown, discontinue and re-order from Quick Search*, Taking Montelukast Sodium 10 MG Tablet 1 tab(s) orally once a day * Allergies: C efdinir: hives - Allergy, SULFA: hives - Allergy. Objective: * Vitals: Assessment: * Assessment: 1. M yalgia - M79.10 (Primary) Plan: * Treatment: * * Electronic signature of Prov ider Migration on 03/21/2025 at 01:12 PM EDT Sign off status: Pending * Provider: Thuy mayes Migration Date: 0 11/06/2024 Generated for Kelsey castaneda/Paul/Sal on: 03/21/2025 01:12 PM EDT
[2025-03-18 17:45] LABS: Free T4 (Free Thyroxine) 0.88 ng/dl (0.78-2.19)
[2025-03-18 17:59] LABS: Thyroid Stimulating Hormone 9.20 uIU/mL (0.465-4.68)
--- OUTSIDE RECORDS SUMMARY | 2025-03-21 13:13 | XMS_ITS | Patient Health Record ---
Author Organization [facility] Address [address] [facility] 36 [facility] [address] [place] [address] Care Team Providers Care Driver Operator Name Role Phone Bryon Chandra Primary Care Provider [phone] Bryon Chandra Unavailable Unavailable Migration, Provider Unavailable Unavailable Allergies Allergen (clinical drug ingredient) Drug/Non Drug Allergy documented on EMR Reaction Allergy Type Onset Date Status SULFA (uncoded) hives Allergy Acti ve cefdinir Cefdinir hives Drug Allergy Active Reason For Referral No Information Medications Medication SIG (Take, Route, Frequency, Duration) Notes Start Date End Date Status Fluticasone Propionate 50 MCG/ACT 2 sprays in each nostril once a day; Duration: 30 day(s) 10/30/2021 Active metFORMIN HCl 500 MG 1 tab(s) orally daily; Duration: 90 days Active Claritin-D 12 Hour 5-120 MG 1 tab(s) orally every 12 hours; Duration: 10 days 05/21/2022 Active Levothyroxine Sodium 175 MCG 1 tab(s) orally once a day; Duration: 90 days Active Advair Diskus 500 MCG-50 MCG 1 PUFF INHALED BY MOUTH 2 TIMES A DAY; Duration: 30 DAYS *Please review and pick correct strength-formulatio n from [employer] options. If intended option is not shown, discontinue and re-order from Quick Search* Active PROAIR HFA 200 METERED INHAL 2 PUFFS INHALED QID PRN; Duration: 30 DAYS *Please review for potential replacement for e-prescription and drug interaction check* Active Montelukast Sodium 10 MG 1 tab(s) orally once a day; Duration: 90 days Active predniSONE 20 MG 1 tab(s) orally [...] 6 hours; Duration: 30 day(s) 04/30/2021 Active DUONEB 2.5 MG-0.5 MG/3 ML 3 ML BY NEBULIZER QID AND PRN; Duration: 30 DAYS *Please review for potential replacement for e-prescription and drug interaction check* Active IBU 800 MG 1 tab(s) orally 3 times a day; Duration: 15 days 06/19/2021 Active Social History Tobacco Use: Social History Observation Description Date Details (start date - stop date) Never Smoker NA - NA Smoking: Question Answer Notes Are you a: nonsmoker Problems Problem Type SNOMED Code ICD Code Onset Dates Problem Status W/U Status Risk Notes Problem Bilateral chronic serous otitis (145760358) Chronic serous otitis media, bilateral (H65.23) Active confirmed Problem Hypothyroidism (19430652) Hypothyroidism (acquired) (E03.9) Active confirmed Problem Type II diabetes mellitus without complication (838741278) Diabetes mellitus type 2, noninsulin dependent (E11.9) Active confirmed Problem Hyperlipidemia (01660933) Hyperlipemia, idiopathic 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) Active confirmed Problem Obese class II (422804497534859) BMI 38.0-38.9,adult (Z68.38) Active confirmed Problem Inflammatory polyarthropathy (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) Arthritis, multiple joint involvement (M12.9) Active confirmed Problem Exacerbation of asthma (841173645) Asthma exacerbation, mild (J45.901) Active confirmed Problem Uncomplicated moderate persistent asthma (636818877) Moderate persistent asthma without complication (J45.40) Active confirmed Problem Exacerbation of moderate persistent asthma (disorder) (859728620) Moderate persistent asthma with exacerbation (J45.41) Active confirmed Encounters Encounter Location Date Provider Diagnosis [facility] [address] [place] [address] 11/06/2024 Provider Migration Myalgia M79.10 Assessments Encounter Date Diagnosis (ICD Code) Assessment Notes Treatment Notes Treatment Clinical Notes Section Notes 11/06/2024 Myalgia (ICD-10 - M79.10) Plan Of Treatment Pending Test Test Name Order Date X ray : Chest 10/29/2021 Physical Therapy 01/24/2020 C-CBC 03/28/2020 C-CMP 03/28/2020 C-CMP 03/23/2019 C-LIPID PANEL 03/23/2019 C-LIPID PANEL 03/28/2020 C-TSH 03/28/2020 C-TSH 03/23/2019 C-HGBA1C 03/23/2019 M-Complete Blood Count Auto Diff 022 M-Comprehensive Metabolic Panel 11/28/19 M-Comprehensive Metabolic Panel 08/19/19 19 M-Hemoglobin A1C 08/19/2018 M-Hemoglobin A1C 11/27/2021 M-Lipid Panel 11/27/2021 M-Lipid Panel 08/19/2018 M-Thyroid Stimulating Hormone 08/19/2018 M-Thyroid Stimulating Hormone 11/27/2021 M-COVID PCR SINGLE RAPID 08/11/2020 THYROID PEROXIDASE AND THYROGLOBULIN ANT IBODIES (7260) 08/14/2023 THYROID PANEL WITH TSH (7444) 08/14/2023 SED RATE BY MODIFIED JASVIRREN (809) Future Test Test Name Order Date H-CBC with AUTO DIFF 08/16/2017 H-LIPID PANEL 08/16/2017 H-HGBA1C 08/16/2017 H-TSH 08/16/2017 M-Vitamin B12 03/31/2021 Insurance Providers Payer Name Payer Address Payer Phone Subscriber Number Group Number Insured Name Patient Relationship to Insured Coverage Start Date Coverage End Date [facility] [address] [place] [address] [id number] 001 [id number] Azalia Mcallister Self - patient is the insured Medications Administered Medication Instructions Date of Administration Dosage Notes Dexamethasone 4mg Injection 04/30/2021 4 mg Dexamethasone 4mg Injection 06/06/2021 4 mg Kenalog 40mg 08/05/2017 40 mg Triamcinolone Acetonide 40mg Injection 08/15/2020 1 mL Triamcinolone Acetonide 40mg Injection 10/23/2020 1 mL Medical (General) History Medical History History ICD Code DM II hypothyroidism asthma Surgical History Surgery Date(Month/Year) cholecystectomy D and C x 2 Hospitalization History Reason Date(Month/Year) asthma 08/2019 pneumonia 2017
== END 2025-03-18 23:59 ==
LOC: LAB.DROPOF 03-21 13:09
PROVIDERS: PCP Nurse Practitioner Family; Visit Provider Nurse Practitioner Family
DX: G47.33 Obstructive sleep apnea (adult) (pediatric) (principal); E03.9 Hypothyroidism, unspecified
CPT/HCPCS: 84439; 84443

== ENCOUNTER 2025-04-20 15:39 | Outpatient (CLI) | payer BC, SELFPAY ==
--- OUTSIDE RECORDS SUMMARY | 2024-11-06 17:30 | XMS_ITS ---
Author Organization [facility] D [facility] Address [address] [facility] [address] [place] [address] Care Team Providers Care Spud Sorter Name Role Phone Bryon Chandra Primary Care Provider [phone] Bryon Chandra Unavailable Unavailable Migration, Provider Unavailable Unavailable Allergies Allergen (clinical drug ingredient) Drug/Non Drug Allergy documented on EMR Reaction Allergy Type Onset Date Status SULFA (uncoded) hives Allergy Acti ve cefdinir Cefdinir hives Drug Allergy Active [facility] Conversion Encounter Medications Medication SIG [...] Active Encounters Encounter Location Date Provider Diagnosis [facility] PED NATALIE [address] [place] [address] 11/06/2024 Provider Migration Myalgia M79.10 Assessments Encounter Date Diagnosis (ICD Code) Assessment Notes Treatment Notes Treatment Clinical Notes Section Notes 11/06/2024 Myalgia (ICD-10 - M79.10) Plan Of Treatment Medication Medication Name Sig Start Date Stop Date Notes predniSONE 20 MG 1 tab(s) orally once a day; Duration: 7 days 08/19/2023 Progress Notes * Azalia MCALLISTERDOB:1980 ( 45 yo F)Acc No.[id number]:11/06/2024 Patient: Azalia BAEZ Provider: Thuy mayes Migration :1980 A ge:44 Y S ex:Female Date:11/06/2024 Address:[address] [place] [address] [id number] Pcp:Bryon Chandra Subjective: * Chief Complaints: * [...] *Please review and pick correct strength-formulation from [employer] options. If intended option is not shown, discontinue and re-order from Quick Search*, Taking Montelukast Sodium 10 MG Tablet 1 tab(s) orally once a day * Allergies: C efdinir: hives - Allergy, SULFA: hives - Allergy. Objective: * Vitals: Assessment: * Assessment: 1. M yalgia - M79.10 (Primary) Plan: * Treatment: * * Electronic signature of Prov ider Migration on 04/20/2025 at 03:42 PM EDT Sign off status: Pending * Provider: Thuy mayes Migration Date: 0 11/06/2024 Generated for Kelsey castaneda/Paul/Sal on: 0 04/20/2025 03:42 PM EDT
--- OUTSIDE RECORDS SUMMARY | 2025-04-20 15:42 | XMS_ITS | Patient Health Record ---
Author Organization [facility] Address [address] [facility] 36 [facility] [address] [place] [address] Care Team Providers Care Theater Manager Name Role Phone Bryon Chandra Primary Care Provider [phone] Bryon Chandra Unavailable Unavailable Migration, Provider Unavailable [...] Risk Notes Problem Bilateral chronic serous otitis (876491310) Chronic serous otitis media, bilateral (H65.23) Active confirmed Problem Hypothyroidism (35839886) Hypothyroidism (acquired) (E03.9) Active confirmed Problem Type II diabetes mellitus without complication (328782195) Diabetes mellitus type 2, noninsulin dependent (E11.9) Active confirmed Problem Hyperlipidemia (99225133) Hyperlipemia, idiopathic 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) Active confirmed Problem Obese class II (398621038015618) BMI 38.0-38.9,adult (Z68.38) Active confirmed Problem Inflammatory polyarthropathy (695029496) Arthritis, multiple joint involvement (M12.9) Active confirmed Problem Exacerbation of asthma (238275851) Asthma exacerbation, mild (J45.901) Active confirmed Problem Uncomplicated moderate persistent asthma (934554877) Moderate persistent asthma without complication (J45.40) Active confirmed Problem Exacerbation of moderate persistent asthma (disorder) (559255617) Moderate persistent asthma with exacerbation (J45.41) Active confirmed Encounters Encounter Location Date Provider Diagnosis [facility] P[facility] [address] [place] [address] 11/06/2024 Provider Migration Myalgia M79.10 Assessments Encounter [...] [facility]UE [facility] [address] [place] [address] [id number] [phone] [id number] Azalia Mcallister Self - patient is the [...]
[2025-04-20 17:06] LABS: Free T4 (Free Thyroxine) 1.27 ng/dl (0.78-2.19)
[2025-04-20 17:24] LABS: Thyroid Stimulating Hormone 5.98 uIU/mL (0.465-4.68)
== END 2025-04-20 23:59 | disposition home or self-care (01) ==
LOC: LAB 15:39
PROVIDERS: PCP Nurse Practitioner Family; Visit Provider Student in an Organized Health Care Education/Training Program
DX: E03.9 Hypothyroidism, unspecified (principal)
CPT/HCPCS: 36415; 84439; 84443

== ENCOUNTER 2025-05-18 16:01 | Outpatient (CLI) | payer BC, SELFPAY ==
--- OUTSIDE RECORDS SUMMARY | 2024-11-06 17:30 | XMS_ITS ---
Author Organization [facility] Address [address] [facility] 36 [facility] [address] [place] [address] Care Team Providers Care Medical Secretary Name Role Phone Bryon Chandra Primary Care Provider Bryon Chandra Unavailable Unavailable Migration, Provider Unavailable Unavailable Allergies Allergen (clinical drug ingredient) Drug/Non Drug Allergy documented on EMR Reaction Allergy Type Onset Date Status SULFA (uncoded) hives Allergy Acti ve cefdinir Cefdinir hives Drug Allergy [facility] Conversion Encounter Medications Medication SIG (Take, Route, [...] Active Encounters Encounter Location Date Provider Diagnosis [facility]ED NAT[facility] [address] [place] [address] 11/06/2024 Provider Migration Myalgia M79.10 Assessments Encounter Date Diagnosis (ICD Code) Assessment Notes Treatment Notes Treatment Clinical Notes Section Notes 11/06/2024 Myalgia (ICD-10 - M79.10) Plan Of Treatment Medication Medication Name Sig Start Date Stop Date Notes predniSONE 20 MG 1 tab(s) orally once a day; Duration: 7 days 08/19/2023 Progress Notes * Azalia MCALLISTERDOB:1980 ( 45 yo F)Acc No.[id number]:11/06/2024 Patient: Azalia BAEZ Provider: Thuy mayes Migration :1980 A ge:44 Y S ex:Female Date:11/06/2024 Address:[address] [place] [address] [id number] Pcp:Bryon Chandra Subjective: * Chief Complaints: * [...] *Please review and pick correct strength-formulation from [employer] options. If intended option is not shown, discontinue and re-order from Quick Search*, Taking Montelukast Sodium 10 MG Tablet 1 tab(s) orally once a day * Allergies: C efdinir: hives - Allergy, SULFA: hives - Allergy. Objective: * Vitals: Assessment: * Assessment: 1. M yalgia - M79.10 (Primary) Plan: * Treatment: * * Electronic signature of Prov ider Migration on 05/18/2025 at 04:03 PM EDT Sign off status: Pending * Provider: Thuy mayes Migration Date: 0 11/06/2024 Generated for Kelsey castaneda/Paul/Sal on: 1 04:03 PM EDT
--- NOTE | 2025-05-18 16:03 | XR_ITS ---
FINAL REPORT CLINICAL HISTORY: abd pain ruq pain, nausea COMPARISON: None FINDINGS: ABDOMEN SPINE AND UPRIGHT: Spine and upright views of the abdomen were obtained. The bowel gas pattern is nonspecific and nonobstructive. No calcified renal stones are identified. No evidence of free air is seen. No acute osseous abnormality is noted. IMPRESSION: Nonspecific, nonobstructive bowel gas pattern. Reviewed, Interpreted and Dictated by Callie Jarvis MD Transcribed by Mercedes Cooney Authenticated and [facility]
--- OUTSIDE RECORDS SUMMARY | 2025-05-18 16:03 | XMS_ITS | Patient Health Record ---
Author Organization [facility] Address [address] [facility] 36 [facility] [address] [place] [address] Care Team Providers Care Fruit Grading Supervisor Name Role Phone Bryon Chandra Primary Care [...] Risk Notes Problem Bilateral chronic serous otitis (118412505) Chronic serous otitis media, bilateral (H65.23) Active confirmed Problem Hypothyroidism (77762248) Hypothyroidism (acquired) (E03.9) Active confirmed Problem Type II diabetes mellitus without complication (441613445) Diabetes mellitus type 2, noninsulin dependent (E11.9) Active confirmed Problem Hyperlipidemia (47194279) Hyperlipemia, idiopathic 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) Active confirmed Problem Obese class II (907456266388603) BMI 38.0-38.9,adult (Z68.38) Active confirmed Problem Inflammatory polyarthropathy (692956380) Arthritis, multiple joint involvement (M12.9) Active confirmed Problem Exacerbation of asthma (596416583) Asthma exacerbation, mild (J45.901) Active confirmed Problem Uncomplicated moderate persistent asthma (467522751) Moderate persistent asthma without complication (J45.40) Active confirmed Problem Exacerbation of moderate persistent asthma (disorder) (937329170) Moderate persistent asthma with exacerbation (J45.41) Active confirmed Encounters Encounter Location Date Provider Diagnosis [facility] [address] [place] [address] 11/06/2024 Provider Migration Myalgia M79.10 Assessments Encounter [...] Coverage Start Date Coverage End Date [facility] [address] [place] [address] [id number] 001 [id number] Azalia Mcallister Self - patient is the [...]
[2025-05-18 17:30] LABS: Hematocrit 42.3 % (37.0-47.0); Hemoglobin 13.9 g/dL (12.2-16.2); Immature Granulocytes % 0.2 %; Mean Corpuscular HGB Conc 32.9 g/dL (31.8-35.4); Mean Corpuscular Hemoglobin 29.8 pg (27.0-31.2); Mean Corpuscular Volume 90.6 fl (81-99); Nucleated Red Blood Cells % 0 %; Platelet Count 454 K/mm3 (142-424); Red Blood Count 4.67 M/mm3 (4.20-5.40); Red Cell Distribution Width-SD 43.4 fL; White Blood Count 8.8 K/mm3 (4.8-10.8)
[2025-05-18 18:14] LABS: Alanine Aminotransferase 76 U/L (12-78); Albumin Level 4.4 g/dl (3.5-5.0); Albumin/Globulin Ratio 1.7 (1.1-1.8); Alkaline Phosphatase 107 U/L (38-126); Amylase 70 U/L (30-110); Anion Gap 16.7 mEq/L (5-15); Aspartate Amino Transferase 55 U/L (14-36); Bilirubin,Direct 0.3 mg/dl (0.0-0.4); Bilirubin,Indirect 0.5 mg/dL (0.0-0.9); Bilirubin,Total 0.8 mg/dl (0.2-1.3); Bilirubin,Unconjugated 0.5 mg/dL (0.0-1.1); Blood Urea Nitrogen 11 mg/dl (7-17); Calcium 9.7 mg/dl (8.4-10.2); Carbon Dioxide 27 mmol/L (22.0-30.0); Chloride 99 mmol/L (98-107); Creatinine,Serum 1.00 mg/dl (0.52-1.04); Estimated Glomerular Filt Rate 60 ml/min (>60); GFR (African American) 73 ML/MIN (>60); Globulin 2.6 g/dL (1.3-3.2); Glucose 90 mg/dl (74-100); Lipase 201 U/L (23-300); Potassium 4.7 mmoL/L (3.5-5.1); Sodium 138 mmol/L (136-145); Total Protein,Serum 7.0 g/dl (6.3-8.2)
[2025-05-18 19:03] LABS: Vitamin B12 709 pg/mL (239-931)
[2025-05-20 16:03] LABS: Free T4 (Free Thyroxine) 1.41 ng/dl (0.78-2.19)
[2025-05-20 16:33] LABS: Thyroid Stimulating Hormone 1.93 uIU/mL (0.465-4.68)
== END 2025-05-18 23:59 | disposition home or self-care (01) ==
LOC: RAD 16:01
PROVIDERS: Student in an Organized Health Care Education/Training Program; PCP Nurse Practitioner Family; Visit Provider Nurse Practitioner Family
DX: R10.11 Right upper quadrant pain (principal); R11.0 Nausea; K59.00 Constipation, unspecified; R41.3 Other amnesia; E53.8 Deficiency of other specified B group vitamins; R53.83 Other fatigue; E03.9 Hypothyroidism, unspecified
CPT/HCPCS: 74019; 80053; 82150; 82248; 82607; 83690; 84439; 84443; 85025

== ENCOUNTER 2025-06-01 07:22 | Outpatient (CLI) | payer BC, SELFPAY ==
--- OUTSIDE RECORDS SUMMARY | 2024-11-06 17:30 | XMS_ITS ---
Author Organization [facility] Address [address] [facility] 36 [facility] [address] [place] [address] Care Team Providers Care Bridal Sales Consultant Name Role Phone Bryon Chandra Primary Care Provider Bryon Chandra Unavailable Unavailable Migration, Provider Unavailable Unavailable Allergies Allergen (clinical drug ingredient) Drug/Non Drug Allergy documented on EMR Reaction Allergy Type Onset Date Status SULFA (uncoded) hives Allergy Acti ve cefdinir Cefdinir hives Drug Allergy Active [facility] Conversion Encounter Medications Medication SIG (Take, Route, [...] Active Encounters Encounter Location Date Provider Diagnosis Located within [facility] PED NAT[facility]IE [address] [place] [address] 11/06/2024 Provider Migration Myalgia M79.10 Assessments Encounter Date Diagnosis (ICD Code) Assessment Notes Treatment Notes Treatment Clinical Notes Section Notes 11/06/2024 Myalgia (ICD-10 - M79.10) Plan Of Treatment Medication Medication Name Sig Start Date Stop Date Notes predniSONE 20 MG 1 tab(s) orally once a day; Duration: 7 days 08/19/2023 Progress Notes * Azalia MCALLISTERDOB:1980 ( 45 yo F)Acc No.[id number]:11/06/2024 Patient: Azalia BAEZ Provider: Thuy mayes Migration :1980 A ge:44 Y S ex:Female Date:11/06/2024 Address:[address] [place] [address] [id number] Pcp:Bryon Chandra Subjective: * Chief Complaints: * [...] *Please review and pick correct strength-formulation from [employer] options. If intended option is not shown, discontinue and re-order from Quick Search*, Taking Montelukast Sodium 10 MG Tablet 1 tab(s) orally once a day * Allergies: C efdinir: hives - Allergy, SULFA: hives - Allergy. Objective: * Vitals: Assessment: * Assessment: 1. M yalgia - M79.10 (Primary) Plan: * Treatment: * * Electronic signature of Prov ider Migration on 06/01/2025 at 07:24 AM EDT Sign off status: Pending * Provider: Thuy mayes Migration Date: 0 11/06/2024 Generated for Kelsey castaneda/Paul/Sal on: 1 07:24 AM EDT
--- OUTSIDE RECORDS SUMMARY | 2025-06-01 07:25 | XMS_ITS | Patient Health Record ---
Author Organization [facility] Address [address] [facility] 36 [facility] [address] [place] [address] Care Team Providers Care Commission Specialist Name Role Phone Bryon Chandra Primary Care [...] Risk Notes Problem Bilateral chronic serous otitis (752666735) Chronic serous otitis media, bilateral (H65.23) Active confirmed Problem Hypothyroidism (95016582) Hypothyroidism (acquired) (E03.9) Active confirmed Problem Type II diabetes mellitus without complication (025111343) Diabetes mellitus type 2, noninsulin dependent (E11.9) Active confirmed Problem Hyperlipidemia (65870090) Hyperlipemia, idiopathic 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) Active confirmed Problem Obese class II (882653020584504) BMI 38.0-38.9,adult (Z68.38) Active confirmed Problem Inflammatory polyarthropathy (556247026) Arthritis, multiple joint involvement (M12.9) Active confirmed Problem Exacerbation of asthma (341824718) Asthma exacerbation, mild (J45.901) Active confirmed Problem Uncomplicated moderate persistent asthma (113012664) Moderate persistent asthma without complication (J45.40) Active confirmed Problem Exacerbation of moderate persistent asthma (disorder) (976516588) Moderate persistent asthma with exacerbation (J45.41) Active confirmed Encounters Encounter Location Date Provider Diagnosis [facility] [address] [place] [address] 11/06/2024 Provider Migration Myalgia M79.10 Assessments Encounter [...] Coverage Start Date Coverage End Date [facility]UE [facility] [address] [place] [address] [id number] 001 [id number] Azalia Mcallister Self - patient is the [...]
--- NOTE | 2025-06-01 07:30 | US_ITS ---
FINAL REPORT TECHNIQUE: Ultrasound images of the abdomen were obtained. CLINICAL HISTORY: abd pain COMPARISON: None FINDINGS: ABDOMINAL ULTRASOUND COMPLETE: The liver is normal in size and echogenicity without focal abnormality. The gallbladder is absent. The common duct is normal. The right kidney measures 10.7 cm in length and is normal in echogenicity without hydronephrosis. The left kidney measures 11.2 cm in length and is normal in echogenicity without hydronephrosis. The spleen is unremarkable. The pancreas is obscured by overlying bowel gas. The visualized portions of the aorta and the IVC are normal. The vena cava is unremarkable. IMPRESSION: Normal ultrasound of the abdomen. Reviewed, Interpreted and Dictated by Vargas Reich MD Transcribed by Jacqueline Dale Authenticated and [facility]
== END 2025-06-01 23:59 | disposition home or self-care (01) ==
LOC: RAD 07:23
PROVIDERS: PCP Nurse Practitioner Family; Visit Provider Nurse Practitioner Family
DX: K59.00 Constipation, unspecified (principal); R11.0 Nausea; Z12.11 Encounter for screening for malignant neoplasm of colon
CPT/HCPCS: 76700

== ENCOUNTER 2025-06-16 09:11 | Outpatient (CLI) | payer BC, SELFPAY ==
[2025-06-16 17:10] LABS: Coronavirus 19, PCR Not Detected (NotDetected); Influenza A, PCR Not Detected (NotDetected); Influenza B, PCR Not Detected (NotDetected)
== END 2025-06-16 23:59 ==
LOC: LAB.DROPOF 06-20 09:13
PROVIDERS: PCP Nurse Practitioner Family; Visit Provider Nurse Practitioner Family
DX: M54.50 Low back pain, unspecified (principal); R31.9 Hematuria, unspecified; R39.9 Unspecified symptoms and signs involving the genitourinary system; B34.9 Viral infection, unspecified
CPT/HCPCS: 87086; 87088; 87186; 87631

== ENCOUNTER 2025-07-03 08:28 | Outpatient (CLI) | payer BC, SELFPAY ==
--- OUTSIDE RECORDS SUMMARY | 2024-11-06 16:30 | XMS_ITS ---
Author Organization [facility] Address [address] [place] [address] Care Team Providers Care Stenciler Name Role Phone Bryon Chandra Primary Care Provider [phone] Bryon Chandra Unavailable Unavailable Migration, Provider Unavailable Unavailable Allergies Allergen (clinical drug ingredient) Drug/Non Drug Allergy documented on EMR Reaction Allergy Type Onset Date Status SULFA (uncoded) hives Allergy Acti ve cefdinir Cefdinir hives Drug Allergy [facility] Encounter Medications Medication SIG (Take, Route, Frequency, Duration) Notes Start Date End Date Status Fluticasone Propionate 50 MCG/ACT 2 sprays in each nostril once a day; Duration: 30 day(s) 10/30/2021 Active metFORMIN HCl 500 MG 1 tab(s) orally daily; Duration: 90 days Active Claritin-D 12 Hour 5-120 MG 1 tab(s) orally every 12 hours; Duration: 10 days 05/21/2022 Active DUONEB 2.5 MG-0.5 MG/3 ML 3 ML BY NEBULIZER QID AND PRN; Duration: 30 DAYS *Please review for potential replacement for e-prescription and drug interaction check* Active IBU 800 MG 1 tab(s) orally 3 times a day; Duration: 15 days 06/19/2021 Active PROAIR HFA 200 METERED INHAL 2 PUFFS INHALED QID PRN; Duration: 30 DAYS *Please review for potential replacement for e-prescription and drug interaction check* Active predniSONE 20 MG 1 tab(s) orally once a day; Duration: 7 days 08/19/2023 Active Diclofenac Sodium 75 MG 1 tab(s) orally 2 times a day for one week then b.i.d. p.r.n.; Duration: 30 day(s) 01/18/2020 Active Triamcinolone Acetonide 0.5 % 1 raman applied topically 2 times a day; Duration: 7 day(s) 03/27/2021 Active Albuterol Sulfate (2.5 MG/3ML) 0.083% 3 ml by nebulizer every 6 hours; Duration: 30 day(s) 04/30/2021 Active Levothyroxine Sodium 175 MCG 1 tab(s) orally once a day; Duration: 90 days Active Advair Diskus 500 MCG-50 MCG 1 PUFF INHALED BY MOUTH 2 TIMES A DAY; Duration: 30 DAYS *Please review and pick correct strength-formulatio n from Medispan options. If intended option is not shown, discontinue and re-order from Quick Search* Active Montelukast Sodium 10 MG 1 tab(s) orally once a day; Duration: 90 days Active Encounters Encounter Location Date Provider Diagnosis [facility] [address] [place] [address] 11/06/2024 Provider Migration Myalgia M79.10 Assessments Encounter Date Diagnosis (ICD Code) Assessment Notes Treatment Notes Treatment Clinical Notes Section Notes 11/06/2024 Myalgia (ICD-10 - M79.10) Plan Of Treatment Medication Medication Name Sig Start Date Stop Date Notes predniSONE 20 MG 1 tab(s) orally once a day; Duration: 7 days 08/19/2023 Progress Notes * Azalia MCALLISTERDOB:1980 ( 45 yo F)Acc No.[id number]:11/06/2024 Patient: Azalia BAEZ Provider: Thuy mayes Migration :1980 A ge:44 Y S ex:Female Date:11/06/2024 Address:[address] [place] [address] [id number] Pcp:Bryon Chandra Subjective: * Chief Complaints: * 1 . Multum To Medispan Conversion Encounter. * Medical History: * Medications: T aking PROAIR HFA 200 METERED INHAL 2 PUFFS INHALED QID PRN , Notes to Pharmacist: *Please review for potential replacement for e-prescription and drug interaction check*, Taking Diclofenac Sodium 75 MG Tablet Delayed Release 1 tab(s) orally 2 times a day for one week then b.i.d. p.r.n. , Taking Triamcinolone Acetonide 0.5 % Ointment 1 raman applied topically 2 times a day , Taking Albuterol Sulfate (2.5 MG/3ML) 0.083% Nebulization Solution 3 ml by nebulizer every 6 hours , Taking DUONEB 2.5 MG-0.5 MG/3 ML SOLUTION 3 ML BY NEBULIZER QID AND PRN , Notes to Pharmacist: *Please review for potential replacement for e-prescription and drug interaction check*, Taking IBU 800 MG Tablet 1 tab(s) orally 3 times a day , Taking Fluticasone Propionate 50 MCG/ACT Suspension 2 sprays in each nostril once a day , Taking metFORMIN HCl 500 MG Tablet 1 tab(s) orally daily , Taking Claritin-D 12 Hour 5-120 MG Tablet Extended Release 12 Hour 1 tab(s) orally every 12 hours , Taking Levothyroxine Sodium 175 MCG Tablet 1 tab(s) orally once a day , Taking Advair Diskus 500 MCG-50 MCG POWDER 1 PUFF INHALED BY MOUTH 2 TIMES A DAY , Notes to Pharmacist: *Please review and pick correct strength-formulation from InSample options. If intended option is not shown, discontinue and re-order from Quick Search*, Taking Montelukast Sodium 10 MG Tablet 1 tab(s) orally once a day * Allergies: C efdinir: hives - Allergy, SULFA: hives - Allergy. Objective: * Vitals: Assessment: * Assessment: 1. M yalgia - M79.10 (Primary) Plan: * Treatment: * * Electronic signature of Prov ider Migration on 07/05/2025 at 08:31 AM EST Sign off status: Pending * Provider: Thuy mayes Migration Date: 0 11/06/2024 Generated for Kelsey castaneda/Paul/Sal on: 09/05/2024 08:31 AM EST
--- OUTSIDE RECORDS SUMMARY | 2025-07-05 08:31 | XMS_ITS | Patient Health Record ---
Author Organization [facility] Address [address] [facility] 36 [facility] [address] [place] [address] Care Team Providers Care Automatic Machine Attendant Name Role Phone Bryon Chandra Primary Care [...] Risk Notes Problem Bilateral chronic serous otitis (391698294) Chronic serous otitis media, bilateral (H65.23) Active confirmed Problem Hypothyroidism (99455608) Hypothyroidism (acquired) (E03.9) Active confirmed Problem Type II diabetes mellitus without complication (856989455) Diabetes mellitus type 2, noninsulin dependent (E11.9) Active confirmed Problem Hyperlipidemia (96638517) Hyperlipemia, idiopathic 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) Active confirmed Problem Obese class II (222705261341337) BMI 38.0-38.9,adult (Z68.38) Active confirmed Problem Inflammatory polyarthropathy (266043720) Arthritis, multiple joint involvement (M12.9) Active confirmed Problem Exacerbation of asthma (189080821) Asthma exacerbation, mild (J45.901) Active confirmed Problem Uncomplicated moderate persistent asthma (351449737) Moderate persistent asthma without complication (J45.40) Active confirmed Problem Exacerbation of moderate persistent asthma (disorder) (698845177) Moderate persistent asthma with exacerbation (J45.41) Active confirmed Encounters Encounter Location Date Provider Diagnosis [facility] [place] [facility] [address] [place] [address] 11/06/2024 Provider Migration Myalgia M79.10 Assessments Encounter [...] A1C 08/19/2018 M-Hemoglobin A1C 11/27/2021 M-Lipid Panel 08/19/2018 M-Lipid Panel 11/27/2021 M-Thyroid Stimulating Hormone 08/19/2018 M-Thyroid Stimulating Hormone [...] Coverage Start Date Coverage End Date [facility]UE [facility] [address] [place] [address] [id number] 001 [id number] Azalia Mcallister Self - patient is the [...]
== END 2025-07-03 23:59 ==
LOC: LAB.DROPOF 07-05 08:29
PROVIDERS: PCP Nurse Practitioner Family; Visit Provider Student in an Organized Health Care Education/Training Program
DX: N39.0 Urinary tract infection, site not specified (principal)
CPT/HCPCS: 87086

== ENCOUNTER 2025-07-06 10:40 | Outpatient (CLI) | payer BC, SELFPAY | END 2025-07-06 23:59 | disposition home or self-care (01) | LOC: LAB.DROPOF 07-08 10:41 | PROVIDERS: PCP Nurse Practitioner Family; Visit Provider Nurse Practitioner Family | DX: R39.9 Unspecified symptoms and signs involving the genitourinary system (principal) | CPT/HCPCS: 87086 ==

== ENCOUNTER 2025-07-12 11:40 | Outpatient (CLI) | payer BC, SELFPAY ==
--- NOTE | 2025-07-12 11:43 | XR_ITS ---
FINAL REPORT CLINICAL HISTORY: flank pain, gross hematuria FINDINGS: ABDOMEN SINGLE VIEW There is a nonspecific, nonobstructive bowel gas pattern. No abnormal dilatation is identified. There is no abnormal calcification. IMPRESSION: No acute process. Reviewed, Interpreted and Dictated by Vargas Reich MD Transcribed by Faby Temple Authenticated and [facility]
[2025-07-12 12:15] LABS: Hematocrit 43.1 % (37.0-47.0); Hemoglobin 14.1 g/dL (12.2-16.2); Immature Granulocytes % 0.4 %; Mean Corpuscular HGB Conc 32.7 g/dL (31.8-35.4); Mean Corpuscular Hemoglobin 29.9 pg (27.0-31.2); Mean Corpuscular Volume 91.5 fl (81-99); Nucleated Red Blood Cells % 0 %; Platelet Count 427 K/mm3 (142-424); Red Blood Count 4.71 M/mm3 (4.20-5.40); Red Cell Distribution Width-SD 41.9 fL; White Blood Count 8.1 K/mm3 (4.8-10.8)
[2025-07-12 12:48] LABS: Albumin Level 4.6 g/dl (3.5-5.0); Chloride 102 mmol/L (98-107); Sodium 140 mmol/L (136-145)
[2025-07-12 12:49] LABS: Potassium 3.9 mmoL/L (3.5-5.1)
[2025-07-12 12:51] LABS: Alanine Aminotransferase 60 U/L (12-78); Albumin/Globulin Ratio 1.6 (1.1-1.8); Alkaline Phosphatase 88 U/L (38-126); Anion Gap 13.9 mEq/L (5-15); Aspartate Amino Transferase 45 U/L (14-36); Bilirubin,Total 0.5 mg/dl (0.2-1.3); Blood Urea Nitrogen 7 mg/dl (7-17); Carbon Dioxide 28 mmol/L (22.0-30.0); Creatinine,Serum 0.90 mg/dl (0.52-1.04); Estimated Glomerular Filt Rate 68 ml/min (>60); GFR (African American) 82 ML/MIN (>60); Globulin 2.9 g/dL (1.3-3.2); Total Protein,Serum 7.5 g/dl (6.3-8.2)
[2025-07-12 12:52] LABS: Calcium 9.4 mg/dl (8.4-10.2); Glucose 86 mg/dl (74-100)
== END 2025-07-12 23:59 | disposition home or self-care (01) ==
LOC: LAB 11:41
PROVIDERS: PCP Nurse Practitioner Family; Visit Provider Nurse Practitioner Family
DX: R10.A0 Flank pain, unspecified side (principal); R31.0 Gross hematuria
CPT/HCPCS: 36415; 74018; 80053; 85025; 87086

== ENCOUNTER 2025-07-15 08:35 | Outpatient (CLI) | payer BC, SELFPAY ==
--- NOTE | 2025-07-15 08:45 | CT_ITS ---
FINAL REPORT TECHNIQUE: CT examination of the abdomen and pelvis was performed after the administration of oral contrast and pre and post intravenous contrast. Multiplanar reconstructions in the sagittal and coronal planes were subsequently performed. This study was performed with techniques to keep radiation doses as low as reasonably achievable (ALARA). Individualized dose reduction techniques using automated exposure control or adjustment of mA and/or kV according to the patient's size were employed. CLINICAL HISTORY: Flank pain, gross hematuria x 1 month ago COMPARISON: None FINDINGS: CT ABDOMEN PELVIS WITH AND WITHOUT CONTRAST: The lung bases are clear. The liver is normal in size and attenuation. The spleen is unremarkable. The adrenals are normal. The pancreas is unremarkable. The kidneys enhance appropriately. A large amount of stool is present in the colon. No abdominal or pelvic mass or free fluid is identified. Precontrast images demonstrate no nephrolithiasis. IMPRESSION: No acute process Large amount of stool is present in the colon. Reviewed, Interpreted and Dictated by Vargas Reich MD Transcribed by Mercedes Cooney Authenticated and [facility]
[2025-07-15] MEDS: BARIUM SULFATE(READI-CAT2);450ML BOTTLE 450 ML PO (09:11)
[2025-07-15] MEDS: IOPAMIDOL-370 (76%);100ML BOTTLE 75 ML IV (09:12)
[2025-07-15] MEDS: SODIUM CHLORIDE 0.9% 10ML SYR (RAD ONLY) 10 ML IV (09:12)
== END 2025-07-15 23:59 | disposition home or self-care (01) ==
LOC: RAD 08:35
PROVIDERS: PCP Nurse Practitioner Family; Visit Provider Nurse Practitioner Family
DX: R93.3 Abnormal findings on diagnostic imaging of other parts of digestive tract (principal); R31.0 Gross hematuria; R10.A0 Flank pain, unspecified side
CPT/HCPCS: 74178; Q9967

== ENCOUNTER 2025-07-22 10:51 | Outpatient (CLI) | payer BC, SELFPAY ==
--- NOTE | 2025-07-22 10:53 | XR_ITS ---
FINAL REPORT TECHNIQUE: Supine and upright views were obtained. CLINICAL HISTORY: abdominal pain, constipation COMPARISON: None FINDINGS: ABDOMEN SUPINE AND UPRIGHT: The bowel gas pattern is unremarkable. The gallbladder has been surgically resected. No evidence of bowel obstruction or free air is identified. IMPRESSION: Unremarkable two-view abdomen. Reviewed, Interpreted and Dictated by Sommer Hansen MD Transcribed by Mercedes Cooney Authenticated and [facility]
== END 2025-07-22 23:59 | disposition home or self-care (01) ==
LOC: RAD 10:52
PROVIDERS: PCP Nurse Practitioner Family; Visit Provider Nurse Practitioner Family
DX: K59.00 Constipation, unspecified (principal); Z90.49 Acquired absence of other specified parts of digestive tract
CPT/HCPCS: 74019